=== PATIENT | male | born 1985 | race Caucasian/White ===

== ENCOUNTER 2017-05-30 15:29 | Inpatient (IN) | payer OTHER ==
[~2017-05-30] VITALS: Ht 172.7 cm; Wt 86.4 kg
[2017-05-30] MEDS ORDERED: KETOROLAC TROMETHAMINE 30 MG/ML VIAL IV STA (15:44)
[2017-05-30] MEDS ORDERED: SODIUM CHLORIDE 0.9% 1000ML 1,000 ML IV STA ×2 (15:44→19:03)
[2017-05-30] MEDS ORDERED: MoRPHine SULFATE 4 MG/ML 1 ML CARP\\VIAL IV STA ×2 (15:44→17:24)
[2017-05-30 16:19] LABS: BASO % 0.2 %; BASO ABS # 0.05 K/uL (0-0.2); COMPLETE YES; EOS % 1.7 %; HEMATOCRIT 47.7 % (42-52); IG% 0.4 %; LYMPH % 11.4 %; LYMPH ABS # 2.38 K/uL (1.2-3.4); MEAN CELL VOLUME 92.8 fL (80-100); MEAN CORPUSCULAR HEMOGLOBIN 31.7 pg (25-34); MEAN CORPUSCULAR HGB CONC 34.2 g/dl (32-36); MEAN PLATELET VOLUME 10.6 fL (7.4-10.4); NEUT % 80.3 %; PLATELET COUNT 219 K/uL (130-400); RED BLOOD COUNT 5.14 M/uL (4.7-6.1); WHITE BLOOD COUNT 20.93 K/uL (4.8-10.8)
[2017-05-30] MEDS ORDERED: MoRPHine SULFATE 10 MG/ML CARP/VIAL IM STA (16:19)
[2017-05-30 16:35] LABS: BUN/CREATININE RATIO 7.8 (10-20); CALCIUM 9.5 mg/dl (8.5-10.1)
[2017-05-30 16:39] LABS: POTASSIUM 3.8 mmol/L (3.5-5.1)
--- NOTE | 2017-05-30 16:52 | DIAGNOSTIC IMAGING REPORT ---
ABD/PELVIS WITHOUT FOR STONE HISTORY: 31 years-old Male Left flank pain acute left-sided flank pain. Initial exam COMPARISON: None available TECHNIQUE: Multiple axial CT images of the abdomen and pelvis were obtained without contrast. A dose lowering technique was used consistent with the principals of KIRA. FINDINGS: Lung bases are clear. No pneumoperitoneum. Imaged inferior cardiac chambers are unremarkable. The liver, spleen, pancreas and adrenal glands are within normal limits. There is moderate left-sided hydroureteronephrosis secondary to a 4 x 4 x 5 mm calculus of the proximal left ureter just distal to the ureteropelvic junction. Moderate associated perinephric and periureteral limits for stranding is also present. The right kidney, urinary bladder and prostate are unremarkable. The abdominal aorta is normal in course and caliber. No bulky adenopathy identified. No bowel obstruction or focal bowel wall thickening. The large bowel and appendix appear normal. Soft tissues are unremarkable. The bones appear intact. Small posterior disc osteophyte complex formation seen at L4-L5 and L5-S1. IMPRESSION: 1. Moderate left-sided hydroureteronephrosis secondary to a 4 x 4 x 5 mm calculus of the proximal left ureter just distal to the ureteropelvic junction. 2. Normal appendix. The above report was generated using voice recognition software. It may contain grammatical, syntax or spelling errors. Electronically signed by: Samir Oliver M.D. 05/30/2017 4:51 PM Dictated Date/Time: 05/30/2017 4:47 PM
[2017-05-30 17:01] LABS: URINE APPEARANCE CLEAR (CLEAR); URINE BILIRUBIN NEG (NEG); URINE COLOR YELLOW; URINE NITRITE NEG (NEG); URINE SPECIFIC GRAVITY 1.026 (1.000-1.030); UROBILINOGEN NEG (NEG); ZZUR CULT IF INDIC CLEAN CATCH NO
[2017-05-30 17:03] LABS: MANUAL MICROSCOPIC REQUIRED? NO; REVIEW REQ? NO
--- NOTE | 2017-05-30 17:14 | EMERGENCY ROOM VISIT NOTE ---
History First contact with patient: 15:40 Chief Complaint: FLANK PAIN Stated Complaint: EXTREME LOWER LEFT QUAD PAIN History of Present Illness The patient is a 31 year old male who presents to the Emergency Room via private vehicle accompanied by female with complaints of "extreme left lower quadrant pain". The patient states he has a history of renal calculi, and notes that today he woke up around 1330 with severe left lower quadrant abdominal pain radiating to his left flank. He notes this feels like previous renal calculi. He states that it feels as though he is being stabbed in this region. He does feel chills. He denies any fevers. Review of Systems A complete 10-point Review of Systems was discussed with the patient, with pertinent positives and negatives listed in the History of Present Illness. All remaining Review of Systems questions can be considered negative unless otherwise specified. Past Medical/Surgical History Medical Problems: (1) Hypertension (2) Kidney stones (3) Lumbar back pain (4) Viral syndrome Surgical Problems: (1) History of photorefractive keratectomy (PRK) Social History Problems: (1) Anxiety (2) PTSD (post-traumatic stress disorder) Family History Patient reports no known family medical history. Social History Smoking Status: Current Every Day Smoker Alcohol Use: none Drug Use: marijuana Marital Status: single Occupation Status: unemployed Current/Historical Medications No Active Prescriptions or Reported Meds Physical Exam Vital Signs Date Time Temp Pulse Resp B/P (MAP) Pulse Ox O2 Delivery O2 Flow Rate FiO2 05/30/17 18:38 73 132/94 97 Room Air 05/30/17 17:25 67 159/95 97 Room Air 05/30/17 16:05 89 148/102 98 Room Air 05/30/17 15:36 36.9 90 20 147/104 99 Room Air Physical Exam VITAL SIGNS - Vital signs and nursing notes were reviewed. Stable. Hypertensive. GENERAL -31-year-old male appearing his stated age who is in no acute distress. Communicates well with provider and answers questions appropriately. SKIN - Without rashes. No petechial rashes. HEAD - NC/AT. EYES - Sclera anicteric. EARS - No deformities of external structures noted on gross examination bilaterally. NOSE - Midline and without cyanosis. No epistaxis or purulent drainage noted. MOUTH/OROPHARYNX - Without perioral cyanosis. LUNGS - Chest wall symmetric without accessory muscle use, intercostals retractions, or central cyanosis. Normal vesicular breath sounds CTA B/L. No wheezes, rales, or rhonchi appreciated. CARDIAC - RRR with S1/S2. No murmur, rubs, or gallops appreciated. ABDOMEN - Abdominal contour normal without pulsations or visible masses. BS normoactive all four quadrants. Minimal left lower quadrant tenderness. No palpable masses, hepatosplenomegaly, or ascites noted. Positive left CVA tenderness. EXTREMITIES - No clubbing or peripheral cyanosis. No pretibial edema present. + 5/5 strength noted in UE/LE bilaterally. NEUROLOGIC - Cranial nerves II through XII grossly intact. PSYCH - Pt is very pleasant and interacts well with examiner. Medical Decision & Procedures ER Provider Diagnostic Interpretation: ABD/PELVIS WITHOUT FOR STONE HISTORY: 31 years-old Male Left flank pain acute left-sided flank pain. Initial exam COMPARISON: None available TECHNIQUE: Multiple axial CT images of the abdomen and pelvis were obtained without contrast. A dose lowering technique was used consistent with the principals of KIRA. FINDINGS: Lung bases are clear. No pneumoperitoneum. Imaged inferior cardiac chambers are unremarkable. The liver, spleen, pancreas and adrenal glands are within normal limits. There is moderate left-sided hydroureteronephrosis secondary to a 4 x 4 x 5 mm calculus of the proximal left ureter just distal to the ureteropelvic junction. Moderate associated perinephric and periureteral limits for stranding is also present. The right kidney, urinary bladder and prostate are unremarkable. The abdominal aorta is normal in course and caliber. No bulky adenopathy identified. No bowel obstruction or focal bowel wall thickening. The large bowel and appendix appear normal. Soft tissues are unremarkable. The bones appear intact. Small posterior disc osteophyte complex formation seen at L4-L5 and L5-S1. IMPRESSION: 1. Moderate left-sided hydroureteronephrosis secondary to a 4 x 4 x 5 mm calculus of the proximal left ureter just distal to the ureteropelvic junction. 2. Normal appendix. The above report was generated using voice recognition software. It may contain grammatical, syntax or spelling errors. Electronically signed by: Samir Oliver M.D. 05/30/2017 4:51 PM Dictated Date/Time: 05/30/2017 4:47 PM Laboratory Results 05/30/17 16:00 Red Blood Count 5.14, Mean Corpuscular Volume 92.8, Mean Corpuscular Hemoglobin 31.7, Mean Corpuscular Hemoglobin Concent 34.2, Mean Platelet Volume 10.6, Neutrophils (%) (Auto) 80.3, Lymphocytes (%) (Auto) 11.4, Monocytes (%) (Auto) 6.0, Eosinophils (%) (Auto) 1.7, Basophils (%) (Auto) 0.2, Neutrophils # (Auto) 16.80, Lymphocytes # (Auto) 2.38, Monocytes # (Auto) 1.25, Eosinophils # (Auto) 0.36, Basophils # (Auto) 0.05 05/30/17 16:00 Test 05/30/17 16:00 05/30/17 16:30 05/30/17 18:11 White Blood Count 20.93 K/uL (4.8-10.8) Red Blood Count 5.14 M/uL (4.7-6.1) Hemoglobin 16.3 g/dL (14.0-18.0) Hematocrit 47.7 % (42-52) Mean Corpuscular Volume 92.8 fL (80-100) Mean Corpuscular Hemoglobin 31.7 pg (25-34) Mean Corpuscular Hemoglobin Concent 34.2 g/dl (32-36) Platelet Count 219 K/uL (130-400) Mean Platelet Volume 10.6 fL (7.4-10.4) Neutrophils (%) (Auto) 80.3 % Lymphocytes (%) (Auto) 11.4 % Monocytes (%) (Auto) 6.0 % Eosinophils (%) (Auto) 1.7 % Basophils (%) (Auto) 0.2 % Neutrophils # (Auto) 16.80 K/uL (1.4-6.5) Lymphocytes # (Auto) 2.38 K/uL (1.2-3.4) Monocytes # (Auto) 1.25 K/uL (0.11-0.59) Eosinophils # (Auto) 0.36 K/uL (0-0.5) Basophils # (Auto) 0.05 K/uL (0-0.2) RDW Standard Deviation 45.9 fL (36.4-46.3) RDW Coefficient of Variation 13.5 % (11.5-14.5) Immature Granulocyte % (Auto) 0.4 % Immature Granulocyte # (Auto) 0.09 K/uL (0.00-0.02) Anion Gap 6.0 mmol/L (3-11) Est Creatinine Clear Calc Drug Dose 113.4 ml/min Estimated GFR () 114.9 Estimated GFR (Non- 99.1 BUN/Creatinine Ratio 7.8 (10-20) Calcium Level 9.5 mg/dl (8.5-10.1) Total Creatine Kinase 65 U/L (39-308) Creatine Kinase MB 1.7 ng/ml (0.5-3.6) Creatine Kinase MB Ratio 2.6 (0-3.0) Urine Color YELLOW Urine Appearance CLEAR (CLEAR) Urine pH 6.0 (4.5-7.5) Urine Specific [place] 1.026 (1.000-1.030) Urine Protein 1+ (NEG) Urine Glucose (UA) NEG (NEG) Urine Ketones TRACE (NEG) Urine Occult Blood 3+ (NEG) Urine Nitrite NEG (NEG) Urine Bilirubin NEG (NEG) Urine Urobilinogen NEG (NEG) Urine Leukocyte Esterase NEG (NEG) Urine WBC (Auto) 1-5 /hpf (0-5) Urine RBC (Auto) >30 /hpf (0-4) Urine Hyaline Casts (Auto) 1-5 /lpf (0-5) Urine Epithelial Cells (Auto) 10-20 /lpf (0-5) Urine Bacteria (Auto) NEG (NEG) Lactic Acid Level 2.2 mmol/L (0.4-2.0) Medications Administered Medications (Trade) Dose Ordered Sig/Esthela Route Start Time Stop Time Status Last Admin Dose Admin Morphine Sulfate (MoRPHine SULFATE INJ) 4 mg NOW STAT IV 05/30/17 15:44 05/30/17 16:21 DC 05/30/17 16:04 4 MG Sodium Chloride 1,000 ml @ 999 mls/hr Q1H1M STAT IV 05/30/17 15:44 05/30/17 16:44 DC 05/30/17 16:05 999 MLS/HR Morphine Sulfate (MoRPHine SULFATE INJ) 10 mg NOW STAT IM 05/30/17 16:19 05/30/17 16:21 DC 05/30/17 16:33 10 MG Morphine Sulfate (MoRPHine SULFATE INJ) 4 mg NOW STAT IV 05/30/17 17:24 05/30/17 17:26 DC 05/30/17 18:36 4 MG Medical Decision Patient was seen and evaluated as above. He presents to us today with left flank pain. This is concerning for renal calculi secondary to his presentation. There are no urinary symptoms. He is well on exam but does appear to be in a good deal of pain. There is a leukocytosis of 20.93. No anemia. Lactic acidosis of 2.2. No evidence of kidney failure. Urine reveals blood, but no evidence of infection. CT reveals left ureteral calculi. He was given morphine for his pain. He was also given normal saline. I will add 1g of Rocephin IV secondary to lactic acidosis, white blood cell count elevation and stone. He was offered inpatient admission versus outpatient management, and the decision was made that he would do best with inpatient management. I did consult the admission team regarding management in the inpatient setting, and they agreed to evaluate the patient. Case was also discussed with the attending physician. Please refer to further documentation regarding his stay. In evaluation treatment this patient following differential diagnoses were entertained: Pyelonephritis, renal calculi, infected renal calculi, ureteral calculi, among others. Impression Primary Impression: Left flank pain Additional Impressions: Ureteral calculi Increased lactic acid level Departure Information Dispostion Admitted as an inpatient Condition FAIR Prescriptions No Active Prescriptions or Reported Meds Referrals No Doctor, Assigned (PCP) Patient Instructions [facility] Problem Qualifiers
[2017-05-30 18:01] LABS: CKMB/CK RATIO 2.6 (0-3.0)
[2017-05-30] MEDS ORDERED: CEFTRIAXONE SOD INJ 1 GM ADDVIAL IV STA (19:00)
[2017-05-30] MEDS ORDERED: MoRPHine SULFATE 4 MG/ML 1 ML CARP\\VIAL IV PRN (20:00)
[2017-05-30] MEDS ORDERED: ACETAMINOPHEN 325 MG TAB PO PRN (20:00)
[2017-05-30] MEDS ORDERED: ONDANSETRON INJ 2 MG/ML 2 ML VIAL IV PRN (20:00)
[2017-05-30] MEDS ORDERED: POLYETHYLENE (MIRALAX) 17 GM PACK PO PRN (20:00)
--- NOTE | 2017-05-30 20:06 | History and Physical ---
History & Physical Date & Time of Service: May 30, 2017 at 19:57 Chief Complaint: Extreme Lower Left Quad Pain [facility] of Present Illness Source: patient, hospital records 31 yo M with a h/o nephrolithiasis with last stone two years ago presents with acute L flank pain and chills that began today. He denies fever or blood in urine. He denies any UTI symptoms such as urgency, incomplete voiding or dysuria. He has +CVA tenderness that is pronounced on the L side and some LLQ abdominal pain on exam. He is a smoker but otherwise denies any other medical problems. He denies any surgeries or need for lithotripsy or procedures for stones in the past. He was receiving medical care through the [facility] locally for a while but stopped going and at this time has no PCP. He otherwise denies any headaches, chest pain, shortness of breath, diarrhea, GI bleeding, skin changes. He admits to some nausea related to the pain and vomited twice. He has some chronic back pain for which he was taking PRN gabapentin. Past Medical/Surgical History Medical Problems: (2) Kidney stones Status: Chronic (3) Lumbar back pain Status: Chronic Surgical Problems: (1) History of photorefractive keratectomy (PRK) Status: Resolved Family History FH: lung cancer MOTHER Social History Smoking Status: Current Every Day Smoker (1 ppd x 20 years) Smokeless Tobacco Use: Unknown Alcohol Use: none Drug Use: marijuana (denies use of other illicit drugs) Marital Status: single Housing status: lives alone Occupational Status: unemployed Immunizations History of Influenza Vaccine: Unknown History of Tetanus Vaccine?: Unknown History of Pneumococcal: Unknown History of Hepatitis B Vaccine: Unknown Multi-Drug Resistant Organisms History of MDRO: No Allergies Coded Allergies: Bacitracin (Verified Allergy, Unknown, HIVES, 05/30/17) Neomycin (Verified Allergy, Unknown, HIVES, 05/30/17) Polymyxin B (Verified Allergy, Unknown, HIVES, 05/30/17) Home Medications No Active Prescriptions or Reported Meds Review of Systems At least ten systems were reviewed and negative except as indicated in HPI. Physical Exam Vital Signs Date Time Temp Pulse Resp B/P (MAP) Pulse Ox O2 Delivery O2 Flow Rate FiO2 05/30/17 19:28 85 164/90 98 Room Air 05/30/17 18:38 73 132/94 97 Room Air 05/30/17 17:25 67 159/95 97 Room Air 05/30/17 16:05 89 148/102 98 Room Air 05/30/17 15:36 36.9 90 20 147/104 99 Room Air General Appearance: WD/WN, no apparent distress Head: normocephalic, atraumatic Eyes: normal inspection, PERRL, sclerae normal ENT: hearing grossly normal, pharynx normal Neck: trachea midline Respiratory/Chest: lungs clear, normal breath sounds, no respiratory distress, no accessory muscle use Cardiovascular: regular rate, rhythm, no edema, no gallop, no JVD, no murmur, normal peripheral pulses Abdomen/GI: normal bowel sounds, soft, no organomegaly, + tenderness (LLQ) Back: normal inspection, + left CVA tenderness Extremities/Musculoskelatal: normal inspection Neurologic/Psych: community recreation programmer II-XII nml as tested, no motor/sensory deficits, alert, normal mood/affect, oriented x 3 Skin: normal color, warm/dry, no rash Diagnostics Laboratory Results 05/30/17 16:00 Red Blood Count 5.14, Mean Corpuscular Volume 92.8, Mean Corpuscular Hemoglobin 31.7, Mean Corpuscular Hemoglobin Concent 34.2, Mean Platelet Volume 10.6, Neutrophils (%) (Auto) 80.3, Lymphocytes (%) (Auto) 11.4, Monocytes (%) (Auto) 6.0, Eosinophils (%) (Auto) 1.7, Basophils (%) (Auto) 0.2, Neutrophils # (Auto) 16.80, Lymphocytes # (Auto) 2.38, Monocytes # (Auto) 1.25, Eosinophils # (Auto) 0.36, Basophils # (Auto) 0.05 05/30/17 16:00 Test 05/30/17 16:00 05/30/17 16:30 05/30/17 18:11 White Blood Count 20.93 K/uL (4.8-10.8) Red Blood Count 5.14 M/uL (4.7-6.1) Hemoglobin 16.3 g/dL (14.0-18.0) Hematocrit 47.7 % (42-52) Mean Corpuscular Volume 92.8 fL (80-100) Mean Corpuscular Hemoglobin 31.7 pg (25-34) Mean Corpuscular Hemoglobin Concent 34.2 g/dl (32-36) Platelet Count 219 K/uL (130-400) Mean Platelet Volume 10.6 fL (7.4-10.4) Neutrophils (%) (Auto) 80.3 % Lymphocytes (%) (Auto) 11.4 % Monocytes (%) (Auto) 6.0 % Eosinophils (%) (Auto) 1.7 % Basophils (%) (Auto) 0.2 % Neutrophils # (Auto) 16.80 K/uL (1.4-6.5) Lymphocytes # (Auto) 2.38 K/uL (1.2-3.4) Monocytes # (Auto) 1.25 K/uL (0.11-0.59) Eosinophils # (Auto) 0.36 K/uL (0-0.5) Basophils # (Auto) 0.05 K/uL (0-0.2) RDW Standard Deviation 45.9 fL (36.4-46.3) RDW Coefficient of Variation 13.5 % (11.5-14.5) Immature Granulocyte % (Auto) 0.4 % Immature Granulocyte # (Auto) 0.09 K/uL (0.00-0.02) Anion Gap 6.0 mmol/L (3-11) Est Creatinine Clear Calc Drug Dose 113.4 ml/min Estimated GFR () 114.9 Estimated GFR (Non- 99.1 BUN/Creatinine Ratio 7.8 (10-20) Calcium Level 9.5 mg/dl (8.5-10.1) Total Creatine Kinase 65 U/L (39-308) Creatine Kinase MB 1.7 ng/ml (0.5-3.6) Creatine Kinase MB Ratio 2.6 (0-3.0) Urine Color YELLOW Urine Appearance CLEAR (CLEAR) Urine pH 6.0 (4.5-7.5) Urine Specific [place] 1.026 (1.000-1.030) Urine Protein 1+ (NEG) Urine Glucose (UA) NEG (NEG) Urine Ketones TRACE (NEG) Urine Occult Blood 3+ (NEG) Urine Nitrite NEG (NEG) Urine Bilirubin NEG (NEG) Urine Urobilinogen NEG (NEG) Urine Leukocyte Esterase NEG (NEG) Urine WBC (Auto) 1-5 /hpf (0-5) Urine RBC (Auto) >30 /hpf (0-4) Urine Hyaline Casts (Auto) 1-5 /lpf (0-5) Urine Epithelial Cells (Auto) 10-20 /lpf (0-5) Urine Bacteria (Auto) NEG (NEG) Lactic Acid Level 2.2 mmol/L (0.4-2.0) Date/Time Source Procedure Growth Status 05/30/17 18:11 Blood Blood Culture Pending Received Results Past 24 Hours Test 05/30/17 16:00 05/30/17 16:30 05/30/17 18:11 Range/Units White Blood Count 20.93 4.8-10.8 K/uL Red Blood Count 5.14 4.7-6.1 M/uL Hemoglobin 16.3 14.0-18.0 g/dL Hematocrit 47.7 42-52 % Mean Corpuscular Volume 92.8 80-100 fL Mean Corpuscular Hemoglobin 31.7 25-34 pg Mean Corpuscular Hemoglobin Concent 34.2 32-36 g/dl Platelet Count 219 130-400 K/uL Mean Platelet Volume 10.6 7.4-10.4 fL Neutrophils (%) (Auto) 80.3 % Lymphocytes (%) (Auto) 11.4 % Monocytes (%) (Auto) 6.0 % Eosinophils (%) (Auto) 1.7 % Basophils (%) (Auto) 0.2 % Neutrophils # (Auto) 16.80 1.4-6.5 K/uL Lymphocytes # (Auto) 2.38 1.2-3.4 K/uL Monocytes # (Auto) 1.25 0.11-0.59 K/uL Eosinophils # (Auto) 0.36 0-0.5 K/uL Basophils # (Auto) 0.05 0-0.2 K/uL RDW Standard Deviation 45.9 36.4-46.3 fL RDW Coefficient of Variation 13.5 11.5-14.5 % Immature Granulocyte % (Auto) 0.4 % Immature Granulocyte # (Auto) 0.09 0.00-0.02 K/uL Sodium Level 140 136-145 mmol/L Potassium Level 3.8 3.5-5.1 mmol/L Chloride Level 108 98-107 mmol/L Carbon Dioxide Level 26 21-32 mmol/L Anion Gap 6.0 3-11 mmol/L Blood Urea Nitrogen 8 7-18 mg/dl Creatinine 1.00 0.60-1.40 mg/dl Est Creatinine Clear Calc Drug Dose 113.4 ml/min Estimated GFR () 114.9 Estimated GFR (Non- 99.1 BUN/Creatinine Ratio 7.8 10-20 Random Glucose 99 70-99 mg/dl Calcium Level 9.5 8.5-10.1 mg/dl Total Creatine Kinase 65 39-308 U/L Creatine Kinase MB 1.7 0.5-3.6 ng/ml Creatine Kinase MB Ratio 2.6 0-3.0 Urine Color YELLOW Urine Appearance CLEAR CLEAR Urine pH 6.0 4.5-7.5 Urine Specific [place] 1.026 1.000-1.030 Urine Protein 1+ NEG Urine Glucose (UA) NEG NEG Urine Ketones TRACE NEG Urine Occult Blood 3+ NEG Urine Nitrite NEG NEG Urine Bilirubin NEG NEG Urine Urobilinogen NEG NEG Urine Leukocyte Esterase NEG NEG Urine WBC (Auto) 1-5 0-5 /hpf Urine RBC (Auto) >30 0-4 /hpf Urine Hyaline Casts (Auto) 1-5 0-5 /lpf Urine Epithelial Cells (Auto) 10-20 0-5 /lpf Urine Bacteria (Auto) NEG NEG Lactic Acid Level 2.2 0.4-2.0 mmol/L Microbiology Results 05/30/17 Blood Culture, Received Pending 05/30/17 Blood Culture, Received Pending Diagnostic Radiology ABD/PELVIS WITHOUT FOR STONE HISTORY: 31 years-old Male Left flank pain acute left-sided flank pain. Initial exam COMPARISON: None available TECHNIQUE: Multiple axial CT images of the abdomen and pelvis were obtained without contrast. A dose lowering technique was used consistent with the principals of KIRA. FINDINGS: Lung bases are clear. No pneumoperitoneum. Imaged inferior cardiac chambers are unremarkable. The liver, spleen, pancreas and adrenal glands are within normal limits. There is moderate left-sided hydroureteronephrosis secondary to a 4 x 4 x 5 mm calculus of the proximal left ureter just distal to the ureteropelvic junction. Moderate associated perinephric and periureteral limits for stranding is also present. The right kidney, urinary bladder and prostate are unremarkable. The abdominal aorta is normal in course and caliber. No bulky adenopathy identified. No bowel obstruction or focal bowel wall thickening. The large bowel and appendix appear normal. Soft tissues are unremarkable. The bones appear intact. Small posterior disc osteophyte complex formation seen at L4-L5 and L5-S1. IMPRESSION: 1. Moderate left-sided hydroureteronephrosis secondary to a 4 x 4 x 5 mm calculus of the proximal left ureter just distal to the ureteropelvic junction. 2. Normal appendix. Impression Assessment and Plan 31 yo M presents with acute L flank pain and chills found to have kidney stone 1. L flank pain 2/2 ureteral calculus in setting of possible pyelonephritis. IVF overnight, Flomax started, cont supportive care with morphine, Toradol and Zofran PRN. Cont with Rocephin until Urine culture returns--in setting of chills and leukocytosis there is some concern for infection, however, notably no bacteria were seen on the initial UA. Consider Urology consult in 1-2 days if clinically worsens or not improving. 2. Tobacco use-declines nicotine replacement therapy. Pt educated about the benefits of quitting smoking. 3. Chronic Lower back pain-stable, doesn't take medications for this but was taking gabapentin PRN in the past. Cont outpatient management of this. 4. Depression-denies ever being on meds and denies this as an issue for him- was noted in some prior notes. Pt is an [employer] -denies any issues with PTSD DVT proph-SCDs Full Code Dispo-Med/Surg. Pt will need assistance establishing care with a PCP Laine Toney DO [facility] Hospitalist Level of Care Med/Surg Resuscitation Status FULL RESUSCITATION VTE Prophylaxis VTE Risk Assessment Done? Y/N: Yes Risk Level: Moderate Given or contraindicated: SCD's
[2017-05-30 21:20] VITALS: BP 152/93; PULSE 65; TEMP 36.6; O2SAT 99; Ht 172.7 cm; Wt 86.4 kg
[2017-05-30] MEDS: SODIUM CHLORIDE 0.9% 1000ML 1,000 ML IV SCH ×2 (21:44→23:23)
[2017-05-30 22:07] LABS: URINE APPEARANCE CLEAR (CLEAR); URINE BILIRUBIN NEG (NEG); URINE COLOR YELLOW; URINE NITRITE NEG (NEG); URINE SPECIFIC GRAVITY 1.015 (1.000-1.030); UROBILINOGEN NEG (NEG)
[2017-05-30 22:16] LABS: MANUAL MICROSCOPIC REQUIRED? NO; REVIEW REQ? NO
[2017-05-30] MEDS: TAMSULOSIN HCL 0.4 MG CAP PO SCH (22:26)
[2017-05-30] MEDS ORDERED: IV FLUIDS COMPLETED PRN (22:30)
[2017-05-30 23:02] VITALS: BP 134/77; PULSE 79; TEMP 37; O2SAT 98
[2017-05-30] MEDS: KETOROLAC TROMETHAMINE 30 MG/ML VIAL IV. SCH (23:24)
[2017-05-31] MEDS ORDERED: ZOLPIDEM TARTRATE 5 MG TAB PO STA (02:50)
[2017-05-31] MEDS: KETOROLAC TROMETHAMINE 30 MG/ML VIAL IV. SCH (06:24)
[2017-05-31 06:37] LABS: BASO % 0.2 %; BASO ABS # 0.03 K/uL (0-0.2); COMPLETE YES; EOS % 1.9 %; HEMATOCRIT 41.2 % (42-52); IG% 0.4 %; LYMPH % 27.3 %; LYMPH ABS # 3.61 K/uL (1.2-3.4); MEAN CELL VOLUME 92.4 fL (80-100); MEAN CORPUSCULAR HEMOGLOBIN 32.1 pg (25-34); MEAN CORPUSCULAR HGB CONC 34.7 g/dl (32-36); MEAN PLATELET VOLUME 10.7 fL (7.4-10.4); MONO % 8.4 %; NEUT % 61.8 %; PLATELET COUNT 175 K/uL (130-400); RED BLOOD COUNT 4.46 M/uL (4.7-6.1); WHITE BLOOD COUNT 13.24 K/uL (4.8-10.8)
[2017-05-31 07:16] LABS: BUN/CREATININE RATIO 6.5 (10-20); CALCIUM 8.1 mg/dl (8.5-10.1); CREATININE 0.66 mg/dl (0.60-1.40); POTASSIUM 3.7 mmol/L (3.5-5.1)
[2017-05-31 07:30] VITALS: BP 135/71; PULSE 66; TEMP 36.7; O2SAT 97
[2017-05-31] MEDS: TAMSULOSIN HCL 0.4 MG CAP PO SCH (08:02)
[2017-05-31] MEDS ORDERED: FLM4 PO (11:46)
[2017-05-31] MEDS ORDERED: CEFU1TAB33 PO (11:46)
--- NOTE | 2017-05-31 12:03 | Discharge Instructions ---
Discharge Instructions Date of Service May 31, 2017. Admission Reason for Admission: Ureteral Calculus, Left Discharge Discharge Diagnosis / Problem: LEFT URETER STONE, WITH POSSIBLE KIDNEY INFECTION Discharge Goals Goal(s): Diagnostic testing, Therapeutic intervention Activity Recommendations Activity Limitations: as noted below (NO HEAVY EXERTION UNTIL FOLLOW UP WITH PRIMARY CARE PHYSICIAN) . Instructions / Follow-Up Instructions / Follow-Up PLEASE REVIEW YOUR NEW MEDICATION LIST AND FOLLOW INSTRUCTIONS CAREFULLY. INCREASE ORAL FLUID INTAKE. CALL PRIMARY CARE PHYSICIAN, UROLOGIST OR RETURN TO THE ER IMMEDIATELY IF WITH WORSENING OF SYMPTOMS, INCREASING PAIN, FEVER/CHILLS, NAUSEA/VOMITING, CHANGES WITH URINATION, BLOOD IN THE URINE,WEAKNESS. FOLLOW UP WITH PRIMARY CARE PHYSICIAN IN 3-5 DAYS. FOLLOW UP WITH [facility] UROLOGIST DR. SEVEN ROSADO EARLY NEXT WEEK. PLEASE CALL HER OFFICE FOR AN APPOINTMENT. TEL. NO. Current Hospital Diet Patient's current hospital diet: Regular Diet Discharge Diet Recommended Diet: Regular Diet Procedures Procedures Performed: CT ABDOMEN AND PELVIS Pending Studies Studies pending at discharge: yes List of pending studies: PLEASE FOLLOW UP WITH PRIMARY CARE PHYSICIAN AND UROLOGIST FOR FURTHER EVALUATION. Medical Emergencies . Who to Call and When: Medical Emergencies: If at any time you feel your situation is an emergency, please call 911 immediately. . Non-Emergent Contact Non-Emergency issues call your: Primary Care Provider, Urologist Call Non-Emergent contact if: you have a fever, your pain is not controlled, your pain is worsening, you have any medication questions . . "Provider Documentation" section prepared by Manpreet Novoa. . VTE Core Measure Inpt VTE Proph given/why not?: SCD's
[2017-05-31] MEDS ORDERED: CEFTRIAXONE SOD INJ 1 GM in DEXTROSE 5% ADD-VANTAGE 50ML 50 ML IV SCH (19:00)
--- NOTE | 2017-06-02 21:02 | Progress Note ---
Medicine Progress Note Date & Time of Visit: Jun 02, 2017 at 20:49. delayed entry date of service 05/31/17 Subjective called by RN as patient expressing wish to leave patient seen and examined, comfortable, sitting in bed states he feels much better overall denies pain, fever/chills, problems urinating denies other symptoms states he feels back to baseline, and would like to be discharged when asked why, patient explained he cannot stand being in the hospital, he is hungry and he is getting anxious explained the medical condition in detail, richard a diagram, offered steps to make him more comfortable states he really cannot stay anymore and would like to ff up as outpatient patient explained risks and benefits of leaving AMA, he is understanding and accepting of risks Objective Physical Exam: General- oriented x 3, not in distress Eyes- EOMI, anicteric Neck- supple, no JVD Lungs- clear to auscultation b/l Heart- regular rhythm; no murmur, normal rate Abdomen- normal bowel sounds, soft, nontender Extremities- no pretibial edema, no calf tenderness; peripheral pulses intact Neuro- alert, oriented x 3; no gross focal deficits Skin- warm & dry Assessment & Plan 31 yo M presents with acute L flank pain and chills found to have kidney stone 1. L flank pain 2/2 ureteral calculus in setting of possible pyelonephritis. -- patient presents with left flank pain with chills, leukocytosis -- urine culture pending IV Ceftriaxone given -- Dr. Mondragon consulted, plan for Cystoscopy in the afternoon patient decided to leave AMA -- given prescription for Doxycycline PO and Flomax, and advised to ff up with Dr. Mondragon closely, return to ER if with worsening of symptoms 2. Tobacco use-declines nicotine replacement therapy. 3. Chronic Lower back pain-stable, continue Gabapentin 4. Depression- mood stable DVT proph-SCDs Full Code Dispo- d/c home ff up with PCP in 3-5 days ff up with Dr. Mondragon
--- NOTE | 2017-06-02 21:04 | Discharge Summary ---
Discharge Summary Date of Service Jun 02, 2017. Discharge Summary Admission Date: May 31, 2017 at 09:58 Discharge Date: May 31, 2017 Principal Diagnosis: L flank pain 2/2 ureteral calculus in setting of possible pyelonephritis. Secondary Diagnoses/Problems: Please refer to hospital course below. Procedures: ABD/PELVIS WITHOUT FOR STONE HISTORY: 31 years-old Male Left flank pain acute left-sided flank pain. Initial exam COMPARISON: None available TECHNIQUE: Multiple axial CT images of the abdomen and pelvis were obtained without contrast. A dose lowering technique was used consistent with the principals of KIRA. FINDINGS: Lung bases are clear. No pneumoperitoneum. Imaged inferior cardiac chambers are unremarkable. The liver, spleen, pancreas and adrenal glands are within normal limits. There is moderate left-sided hydroureteronephrosis secondary to a 4 x 4 x 5 mm calculus of the proximal left ureter just distal to the ureteropelvic junction. Moderate associated perinephric and periureteral limits for stranding is also present. The right kidney, urinary bladder and prostate are unremarkable. The abdominal aorta is normal in course and caliber. No bulky adenopathy identified. No bowel obstruction or focal bowel wall thickening. The large bowel and appendix appear normal. Soft tissues are unremarkable. The bones appear intact. Small posterior disc osteophyte complex formation seen at L4-L5 and L5-S1. IMPRESSION: 1. Moderate left-sided hydroureteronephrosis secondary to a 4 x 4 x 5 mm calculus of the proximal left ureter just distal to the ureteropelvic junction. 2. Normal appendix. Consultations: Urologist Dr. Rosado Pending Studies/Follow-Up: Please refer to hospital course below. Medication Reconciliation New Medications: Cefuroxime Axetil (Cefuroxime Axetil) 250 Mg Tab 1 TAB PO BID for 10 Days, #20 TABS 0 Refills Tamsulosin HCl (Tamsulosin HCl) 0.4 Mg Cap 0.4 MG PO QAM for 15 Days, #15 CAP 0 Refills Admission Information HPI (per Admitting provider): 31 yo M with a h/o nephrolithiasis with last stone two years ago presents with acute L flank pain and chills that began today. He denies fever or blood in urine. He denies any UTI symptoms such as urgency, incomplete voiding or dysuria. He has +CVA tenderness that is pronounced on the L side and some LLQ abdominal pain on exam. He is a smoker but otherwise denies any other medical problems. He denies any surgeries or need for lithotripsy or procedures for stones in the past. [facility] but stopped [facility] and at this time has no PCP. He otherwise denies any headaches, chest pain, shortness of breath, diarrhea, GI bleeding, skin changes. He admits to some nausea related to the pain and vomited twice. He has some chronic back pain for which he was taking PRN gabapentin. Physical Exam (per Admitting): General Appearance: WD/WN, no apparent distress Head: normocephalic, atraumatic Eyes: normal inspection, PERRL, sclerae normal ENT: hearing grossly normal, pharynx normal Neck: trachea midline Respiratory/Chest: lungs clear, normal breath sounds, no respiratory distress, no accessory muscle use Cardiovascular: regular rate, rhythm, no edema, no gallop, no JVD, no murmur , normal peripheral pulses Abdomen/GI: normal bowel sounds, soft, no organomegaly, + tenderness (LLQ) Back: normal inspection, + left CVA tenderness Extremities/Musculoskelatal: normal inspection 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 L flank pain 2/2 ureteral calculus in setting of possible pyelonephritis. -- patient presents with left flank pain with chills, leukocytosis -- urine culture pending IV Ceftriaxone given -- Dr. Rosado consulted, plan for Cystoscopy in the afternoon patient decided to leave A -- given prescription for Cefuroxime PO and Flomax, and advised to ff up with Dr. Rosado closely, return to ER if with worsening of symptoms 2. Tobacco use-declines nicotine replacement therapy. 3. Chronic Lower back pain-stable, continue Gabapentin 4. Depression- mood stable Dispo- d/c home ff up with PCP in 3-5 days ff up with Dr. Rosado Total time spent on discharge = 45 mins This includes examination of the patient, discharge planning, medication reconciliation, and communication with other providers. Discharge Instructions Discharge Instructions Date of Service May 31, 2017. Admission Reason for Admission: Ureteral Calculus, Left Discharge Discharge Diagnosis / Problem: LEFT URETER STONE, WITH POSSIBLE KIDNEY INFECTION Discharge Goals Goal(s): Diagnostic testing, Therapeutic intervention Activity Recommendations Activity Limitations: as noted below (NO HEAVY EXERTION UNTIL FOLLOW UP WITH PRIMARY CARE PHYSICIAN) . Instructions / Follow-Up Instructions / Follow-Up PLEASE REVIEW YOUR NEW MEDICATION LIST AND FOLLOW INSTRUCTIONS CAREFULLY. INCREASE ORAL FLUID INTAKE. CALL PRIMARY CARE PHYSICIAN, UROLOGIST OR RETURN TO THE ER IMMEDIATELY IF WITH WORSENING OF SYMPTOMS, INCREASING PAIN, FEVER/CHILLS, NAUSEA/VOMITING, CHANGES WITH URINATION, BLOOD IN THE URINE,WEAKNESS. FOLLOW UP WITH PRIMARY CARE PHYSICIAN IN 3-5 DAYS. FOLLOW UP WITH [facility] UROLOGIST DR. SEVEN ROSADO EARLY NEXT WEEK. PLEASE CALL HER OFFICE FOR AN APPOINTMENT. TEL. NO. Current Hospital Diet Patient's current hospital diet: Regular Diet Discharge Diet Recommended Diet: Regular Diet Procedures Procedures Performed: CT ABDOMEN AND PELVIS Pending Studies Studies pending at discharge: yes List of pending studies: PLEASE FOLLOW UP WITH PRIMARY CARE PHYSICIAN AND UROLOGIST FOR FURTHER EVALUATION.
== END 2017-05-31 12:10 | disposition left against medical advice (07) | DRG 694 ==
LOC: C.EDB 15:31 → C.MSW 19:56 → ENRESERV 20:54 → OBSVTOIN 05-31 09:58
PROVIDERS: ADMIT Hospitalist; ATTEND Internal Medicine
DX: N20.1 Calculus of ureter (principal); N12 Tubulo-interstitial nephritis, not specified as acute or chronic; F17.201 Nicotine dependence, unspecified, in remission; R10.32 Left lower quadrant pain; Z87.442 Personal history of urinary calculi; F12.10 Cannabis abuse, uncomplicated; Z80.1 Family history of malignant neoplasm of trachea, bronchus and lung

== ENCOUNTER 2017-06-20 20:36 | Emergency (ER) | payer OTHER ==
[~2017-06-20] VITALS: Ht 172.7 cm; Wt 87.2 kg
[~2017-06-20 20:36] MED LIST: CEFU1TAB33 PO; FLM4 PO
[2017-06-20 20:38] VITALS: TEMP 36.8; Ht 172.7 cm; Wt 87.2 kg
[2017-06-20] MEDS ORDERED: TAMSULOSIN HCL 0.4 MG CAP PO STA (21:23)
--- NOTE | 2017-06-20 21:59 | DIAGNOSTIC IMAGING REPORT ---
KUB CLINICAL HISTORY: Left flank pain COMPARISON STUDY: CT scan dated 05/30/2017 FINDINGS: There is no pathologic bowel dilatation. There is a 4 mm left pelvic basin calcification, likely representing distal migration of the previously described proximal left ureteral calculus IMPRESSION: 1. No evidence of pathologic bowel dilatation 2. 4 mm left pelvic basin calcification, likely representing distal migration of the previously described proximal left ureteral calculus Electronically signed by: Ebenezer Clark M.D. 06/20/2017 9:58 PM Dictated Date/Time: 06/20/2017 9:56 PM
--- NOTE | 2017-06-20 22:21 | DIAGNOSTIC IMAGING REPORT ---
EXAMINATION: RENAL ULTRASOUND CLINICAL HISTORY: Left flank pain COMPARISON STUDY: CT scan dated 05/30/2017 FINDINGS: The right kidney measures 11.7 cm. The left kidney measures 12.4 cm. There is no evidence of hydronephrosis. There are no renal masses. There is a suspected 4 mm calculus at the level of the left ureterovesical junction. IMPRESSION : 1. No renal masses identified 2. No hydronephrosis 3. Suspected 4 mm calculus at the level of the left ureterovesical junction Electronically signed by: Ebenezer Clark M.D. 06/20/2017 10:20 PM Dictated Date/Time: 06/20/2017 10:19 PM
[2017-06-20 23:18] VITALS: BP 145/93; PULSE 72; O2SAT 99
--- NOTE | 2017-06-21 00:11 | EMERGENCY ROOM VISIT NOTE ---
History Report prepared by Emily: Greer Parker Under the Supervision of: Dr. Sylvester Delcid M.D. First contact with patient: 21:08 Chief Complaint: KIDNEY STONE Stated Complaint: KIDNEY STONE, CAN'T PEE History of Present Illness The patient is a 31 year old male who presents to the Emergency Room with complaints of persistent difficulty urinating starting earlier this evening. The patient was seen in the ED several weeks ago and was found to have a large kidney stone. He has not passed the stone yet. He took a nap today and woke up with the urge to urinate. He went to the bathroom, but did not pass any urine. Upon arriving to the ED, he was only able to urinate a small amount. He still feels like he needs to urinate. He denies having any pain. He followed up with urology 3 days ago and was prescribed more Flomax. He has a history of kidney stones all of which he has been able to pass. Source of History: patient Onset: this evening Position: other (global) Quality: other (difficulty urinating) Timing: other (persistent) Note: Pt denies having any pain. Review of Systems See HPI for pertinent positives & negatives. A total of 10 systems reviewed and were otherwise negative. Past Medical & Surgical Medical Problems: (1) Hypertension (2) Kidney stones (3) Lumbar back pain (4) Ureteral calculus, left (5) Ureteral stone (6) Viral syndrome Surgical Problems: (1) History of photorefractive keratectomy (PRK) Social History Problems: (1) Anxiety (2) PTSD (post-traumatic stress disorder) Family History FH: lung cancer MOTHER Social History Smoking Status: Current Every Day Smoker Alcohol Use: none Drug Use: marijuana Marital Status: single Occupation Status: unemployed Current/Historical Medications No Active Prescriptions or Reported Meds Allergies Coded Allergies: Bacitracin (Verified Allergy, Unknown, HIVES, 05/30/17) Neomycin (Verified Allergy, Unknown, HIVES, 05/30/17) Polymyxin B (Verified Allergy, Unknown, HIVES, 05/30/17) Physical Exam Vital Signs Date Time Temp Pulse Resp B/P (MAP) Pulse Ox O2 Delivery O2 Flow Rate FiO2 06/20/17 23:18 72 17 145/93 99 06/20/17 20:38 36.8 80 18 143/97 97 Room Air Physical Exam GENERAL: Patient is a healthy-appearing well-nourished male HEAD: Normocephalic atraumatic EYES: Ocular movements intact pupils equal and react to light OROPHARYNX mucous membranes are moist no exudates present no erythema or edema present NECK: Supple no nuchal rigidity CHEST: Good equal expansion LUNGS: Clear and equal to auscultation CARDIAC: Normal S1 and S2 ABDOMEN: Soft nontender no guarding BACK: No CVA tenderness EXTREMITIES: No pain upon palpation normal muscle strength in all groups no clubbing cyanosis or edema NEURO: Patient is following commands and answering questions appropriately. Alert and oriented x3 Cranial Nerves 2-12 grossly intact Medical Decision & Procedures ER Provider Diagnostic Interpretation: X-ray results as stated below per interpretation by me and the radiologist. Radiology results as stated below per my review and radiologist interpretation: KUB CLINICAL HISTORY: Left flank pain COMPARISON STUDY: CT scan dated 05/30/2017 FINDINGS: There is no pathologic bowel dilatation. There is a 4 mm left pelvic basin calcification, likely representing distal migration of the previously described proximal left ureteral calculus IMPRESSION: 1. No evidence of pathologic bowel dilatation 2. 4 mm left pelvic basin calcification, likely representing distal migration of the previously described proximal left ureteral calculus Electronically signed by: Ebenezer Clark M.D. 06/20/2017 9:58 PM Dictated Date/Time: 06/20/2017 9:56 PM EXAMINATION: RENAL ULTRASOUND CLINICAL HISTORY: Left flank pain COMPARISON STUDY: CT scan dated 05/30/2017 FINDINGS: The right kidney measures 11.7 cm. The left kidney measures 12.4 cm. There is no evidence of hydronephrosis. There are no renal masses. There is a suspected 4 mm calculus at the level of the left ureterovesical junction. IMPRESSION : 1. No renal masses identified 2. No hydronephrosis 3. Suspected 4 mm calculus at the level of the left ureterovesical junction Electronically signed by: Ebenezer Clark M.D. 06/20/2017 10:20 PM Dictated Date/Time: 06/20/2017 10:19 PM Medications Administered Medications (Trade) Dose Ordered Sig/Esthela Route Start Time Stop Time Status Last Admin Dose Admin Tamsulosin HCl (Flomax Cap) 0.4 mg NOW STAT PO 06/20/17 21:23 06/20/17 21:25 DC 06/20/17 21:31 0.4 MG ED Course 2120: Past medical records reviewed. The patient was evaluated in room B3B. A complete history and physical examination was performed. 2122: Flomax Cap 0.4 mg PO. 2300: Upon reexamination the patient is resting comfortably. I discussed results and treatment plan with the patient. He verbalizes agreement and understanding. The patient is ready for discharge. Medical Decision Differential diagnosis: Etiologies such as renal colic, appendicitis, diverticulitis, mesenteric ischemia, aortic pathology, infections, inflammatory bowel disease, PUD, biliary pathology, UTI, as well as others were entertained. This is a 31-year-old male who presents emergency department complaining of urge to urinate. The patient is concerned that he has a large kidney stone and he is unable to pass it. He wishes to have a KUB as well as an ultrasound. I feel that this is reasonable so the patient was sent for them. Both KUB and ultrasound showed that the stone is just about the pass. He was given Flomax in the emergency department. The patient was pain-free at the time of discharge and I feel can be safely be discharged home. Medication Reconcilliation Current Medication List: was personally reviewed by me Blood Pressure Screening Patient's blood pressure: Elevated blood pressure Blood pressure disposition: Elevated BP felt to be situational Impression Primary Impression: Kidney stone on left side Scribe Attestation The scribe's documentation has been prepared under my direction and personally reviewed by me in its entirety. I confirm that the note above accurately reflects all work, treatment, procedures, and medical decision making performed by me. Departure Information Dispostion Home / Self-Care Prescriptions No Active Prescriptions or Reported Meds Referrals No Doctor, Assigned (PCP) Aziza Mondragon MD Forms HOME CARE DOCUMENTATION FORM, IMPORTANT VISIT INFORMATION Patient Instructions My [facility] Additional Instructions Follow up with Dr Mondragon' office You have been examined and treated today on an emergency basis only. This is not a substitute for, or an effort to provide, complete comprehensive medical care. It is impossible to recognize and treat all injuries or illnesses in a single emergency department visit. It is therefore important that you follow up closely with your PCP. Call as soon as possible for an appointment. Thank you for your time and consideration. I look forward to speaking with you again soon. Please don't hesitate to call us if you have any questions.
[2017-06-21] MEDS ORDERED: FLM4 PO (21:32)
[2017-06-22] MEDS ORDERED: NAPR550T22 PO (13:41)
[2017-06-22] MEDS ORDERED: HYDR-3419 PO (14:01)
== END 2017-06-20 23:19 | disposition home or self-care (01) ==
LOC: C.EDB 20:37
DX: N20.0 Calculus of kidney (principal); I10 Essential (primary) hypertension; Z87.442 Personal history of urinary calculi; M54.5 Low back pain; F41.9 Anxiety disorder, unspecified; F43.10 Post-traumatic stress disorder, unspecified; Z80.9 Family history of malignant neoplasm, unspecified; F17.210 Nicotine dependence, cigarettes, uncomplicated

== ENCOUNTER 2017-06-21 20:43 | Inpatient (IN) | payer OTHER ==
[~2017-06-21] VITALS: Ht 172.7 cm; Wt 88.8 kg
[2017-06-21] MEDS ORDERED: SODIUM CHLORIDE 0.9% 1000ML 1,000 ML IV STA (20:50)
[2017-06-21] MEDS ORDERED: ONDANSETRON INJ 2 MG/ML 2 ML VIAL IV STA (20:50)
[2017-06-21] MEDS ORDERED: KETOROLAC TROMETHAMINE 30 MG/ML VIAL IV STA (20:50)
[2017-06-21] MEDS ORDERED: MoRPHine SULFATE 10 MG/ML CARP/VIAL IV PRN (21:00)
--- NOTE | 2017-06-21 21:03 | EMERGENCY ROOM VISIT NOTE ---
History Report prepared by Kevynibe: Lyssa Hsieh Under the Supervision of: Dr. Med Cooper M.D. First contact with patient: 20:49 Chief Complaint: KIDNEY STONE Stated Complaint: KIDNEY STONE History of Present Illness The patient is a 31 year old male who presents to the Emergency Room with complaints of a known kidney stone which has been giving him discomfort starting 3 weeks ago. The patient was seen at the ED last night and has a 4 x 4 x 5 mm kidney stone on his left side at the entry point of his bladder. He has been having difficulty urinating, blood in the urine, left sided abdominal discomfort, but denies any vomiting. He has not been taking anything for his pain. The patient has a history fo kidney stones and sees Dr. Mondragon from Urology. He saw Dr. Mondragon 4 days ago and was put on Flomax. Source of History: patient Onset: 3 weeks ago Position: other (generalized) Quality: other (kidney stone) Associated Symptoms: + abdominal pain, + urinary symptoms, No vomiting Note: Pt notes blood in urine. Review of Systems See HPI for pertinent positives & negatives. A total of 10 systems reviewed and were otherwise negative. Past Medical & Surgical Medical Problems: (1) Hypertension (2) Kidney stones (3) Lumbar back pain (4) Ureteral calculus, left (5) Ureteral stone (6) Viral syndrome Surgical Problems: (1) History of photorefractive keratectomy (PRK) Social History Problems: (1) Anxiety (2) PTSD (post-traumatic stress disorder) Family History FH: lung cancer MOTHER Social History Smoking Status: Current Every Day Smoker Alcohol Use: none Drug Use: marijuana Marital Status: single Occupation Status: unemployed Current/Historical Medications Scheduled Tamsulosin HCl (Tamsulosin HCl), 0.4 MG PO DAILY Allergies Coded Allergies: Bacitracin (Verified Allergy, Unknown, HIVES, 06/21/17) Neomycin (Verified Allergy, Unknown, HIVES, 06/21/17) Polymyxin B (Verified Allergy, Unknown, HIVES, 06/21/17) Physical Exam Vital Signs Date Time Temp Pulse Resp B/P (MAP) Pulse Ox O2 Delivery O2 Flow Rate FiO2 06/21/17 20:46 36.7 98 18 152/91 94 Room Air Physical Exam GENERAL: Patient is in no acute distress. HEENT: No acute trauma, normocephalic atraumatic, mucous membranes moist, no nasal congestion, no scleral icterus. NECK: No stridor, no adenopathy, no meningismus, trachea is midline. LUNGS: Clear to auscultation bilaterally, no wheeze, no rhonchi, breath sounds equal. HEART: Without murmurs gallops or rubs, regular rate and rhythm. ABDOMEN: Moderate tenderness in left lower quadrant. Soft, bowel sounds positive , no hernias, no peritonitis. BACK: Left flank discomfort with percussion. EXTREMITIES: No cyanosis or edema, full range of motion of all the joints without pain or difficulty, no signs for acute trauma. NEUROLOGIC: Oriented x 3, no acute motor or sensory deficits, no focal weakness. SKIN: No rash, no jaundice, no diaphoresis. Medical Decision & Procedures ER Provider Diagnostic Interpretation: Radiology results as stated below per my review and radiologist interpretation: KUB FINDINGS: Unchanging distal left ureteral calculus. This again measures approximately 4 mm it is unchanged in position compared to the prior study. Bowel pattern is nonobstructive. IMPRESSION: Unchanged position of a distal left ureteral calculus. The above report was generated using voice recognition software. It may contain grammatical, syntax or spelling errors. Electronically signed by: Pete Jorge M.D. Laboratory Results 06/21/17 21:19 06/21/17 21:19 Test 06/21/17 21:09 06/21/17 21:19 Urine Color ORANGE Urine Appearance CLOUDY (CLEAR) Urine pH 5.5 (4.5-7.5) Urine Specific [place] 1.025 (1.000-1.030) Urine Protein 1+ (NEG) Urine Glucose (UA) NEG (NEG) Urine Ketones TRACE (NEG) Urine Occult Blood 3+ (NEG) Urine Nitrite NEG (NEG) Urine Bilirubin NEG (NEG) Urine Urobilinogen NEG (NEG) Urine Leukocyte Esterase TRACE (NEG) Urine WBC (Auto) 1-5 /hpf (0-5) Urine RBC (Auto) >30 /hpf (0-4) Urine Hyaline Casts (Auto) 0 /lpf (0-5) Urine Epithelial Cells (Auto) 0-5 /lpf (0-5) Urine Bacteria (Auto) NEG (NEG) Red Blood Count 4.80 M/uL (4.7-6.1) Mean Corpuscular Volume 93.5 fL (80-100) Mean Corpuscular Hemoglobin 33.8 pg (25-34) Mean Corpuscular Hemoglobin Concent 36.1 g/dl (32-36) RDW Standard Deviation 45.4 fL (36.4-46.3) RDW Coefficient of Variation 13.2 % (11.5-14.5) Mean Platelet Volume 10.7 fL (7.4-10.4) Anion Gap 7.0 mmol/L (3-11) Est Creatinine Clear Calc Drug Dose 114.8 ml/min Estimated GFR () 114.9 Estimated GFR (Non- 99.1 BUN/Creatinine Ratio 8.4 (10-20) Calcium Level 9.1 mg/dl (8.5-10.1) Laboratory results reviewed by me. Medications Administered Medications (Trade) Dose Ordered Sig/Esthela Route Start Time Stop Time Status Last Admin Dose Admin Ondansetron HCl (Zofran Inj) 4 mg NOW STAT IV 06/21/17 20:50 06/21/17 20:58 DC 06/21/17 21:08 4 MG Sodium Chloride 1,000 ml @ 999 mls/hr Q1H1M STAT IV 06/21/17 20:50 06/21/17 21:50 DC 06/21/17 21:07 999 MLS/HR Morphine Sulfate (MoRPHine SULFATE INJ) 6 mg Q15M PRN IV 06/21/17 21:00 07/05/17 20:59 06/21/17 21:08 6 MG Ketorolac Tromethamine (Toradol Inj) 30 mg NOW STAT IV 06/21/17 20:50 06/21/17 20:59 DC 06/21/17 21:08 30 MG ED Course 2048: The patient was evaluated in room C3. A complete history and physical exam was performed. 2049: Toradol Inj 30 mg IV, Sodium Chloride 1000 ml @ 999 mls/hr IV, Zofran Inj 4 mg IV. 2099: Morphine Sulfate 6 mg IV. 2147: I updated the patient on his test results. He is willing to be admitted. 2152: Discussed the patient's case with Dr. Munoz. The patient will be evaluated for further management. Medical Decision Differential diagnoses includes: renal failure, hydronephrosis, renal colic, UTI , dehydration, failed outpatient treatment. There is a significant leukocytosis at 20,000, this could be consistent with infection or just his pain. No anemia. No significant electrolyte abnormality or kidney failure. KUB shows a distal left ureteral stone at the junction of the bladder. The stone was in the same position as filmed yesterday. Urinalysis shows hematuria and possibly some dehydration, no signs of infection. The patient presents with ongoing issues from a left ureteral stone. This is his third visit. He has already seen urology. He is failing outpatient treatment. I do think a hospital stay is warranted. I spoke to the patient and case management. The on-call hospitalist was consulted. During the patient's ER stay, he received IV Toradol, IV Zofran and IV morphine. He was given IV saline, he seems more comfortable. Medication Reconcilliation Current Medication List: was personally reviewed by me Blood Pressure Screening Patient's blood pressure: Elevated blood pressure Blood pressure disposition: Elevated BP felt to be situational Consults Time Called: 2149 Consulting Physician: Dr. Munoz Returned Call: [phone] Discussed the patient's case. The patient will be evaluated for further management. Impression Primary Impression: Renal colic on left side Additional Impressions: Leukocytosis Failure of outpatient treatment Scribe Attestation The scribe's documentation has been prepared under my direction and personally reviewed by me in its entirety. I confirm that the note above accurately reflects all work, treatment, procedures, and medical decision making performed by me. Departure Information Dispostion Being Evaluated By Hospitalist Referrals No Doctor, Assigned (PCP) Patient Instructions My [facility] Problem Qualifiers
[2017-06-21 21:23] LABS: HEMATOCRIT 44.9 % (42-52); MEAN CELL VOLUME 93.5 fL (80-100); MEAN CORPUSCULAR HEMOGLOBIN 33.8 pg (25-34); MEAN CORPUSCULAR HGB CONC 36.1 g/dl (32-36); MEAN PLATELET VOLUME 10.7 fL (7.4-10.4); PLATELET COUNT 210 K/uL (130-400); WHITE BLOOD COUNT 20.48 K/uL (4.8-10.8)
--- NOTE | 2017-06-21 21:28 | DIAGNOSTIC IMAGING REPORT ---
KUB CLINICAL HISTORY: EVALUATE FOR OBSTRUCTION/STONE pain COMPARISON STUDY: 06/20/2017 FINDINGS: Unchanging distal left ureteral calculus. This again measures approximately 4 mm it is unchanged in position compared to the prior study. Bowel pattern is nonobstructive. IMPRESSION: Unchanged position of a distal left ureteral calculus. The above report was generated using voice recognition software. It may contain grammatical, syntax or spelling errors. Electronically signed by: Pete Jorge M.D. 06/21/2017 9:27 PM Dictated Date/Time: 06/21/2017 9:26 PM
[2017-06-21] MEDS ORDERED: FLM4 PO (21:32)
[2017-06-21 21:41] LABS: URINE APPEARANCE CLOUDY (CLEAR); URINE BILIRUBIN NEG (NEG); URINE COLOR ORANGE; URINE EPITHELIAL CELL AUTO 0-5 /lpf (0-5); URINE NITRITE NEG (NEG); URINE PH 5.5 (4.5-7.5); URINE SPECIFIC GRAVITY 1.025 (1.000-1.030); UROBILINOGEN NEG (NEG); ZZUR CULT IF INDIC CLEAN CATCH NO
[2017-06-21 21:42] LABS: MANUAL MICROSCOPIC REQUIRED? NO; REVIEW REQ? NO
[2017-06-21 21:43] LABS: BUN/CREATININE RATIO 8.4 (10-20); CALCIUM 9.1 mg/dl (8.5-10.1); POTASSIUM 3.7 mmol/L (3.5-5.1)
[2017-06-21] MEDS ORDERED: ALUMINUM/MAGNESIUM/SIMETH (MAALOX MAX) 30 ML UDC PO PRN (22:30)
[2017-06-21] MEDS ORDERED: MoRPHine SULFATE 4 MG/ML 1 ML CARP\\VIAL IV PRN (22:30)
[2017-06-21] MEDS ORDERED: MAGNESIUM HYDROXIDE SUSP 30 ML UDC PO PRN (22:30)
[2017-06-21] MEDS ORDERED: KETOROLAC TROMETHAMINE 30 MG/ML VIAL IV PRN (22:30)
[2017-06-21] MEDS ORDERED: ACETAMINOPHEN 325 MG TAB PO PRN (22:30)
[2017-06-21] MEDS ORDERED: ONDANSETRON INJ 2 MG/ML 2 ML VIAL IV PRN (22:30)
[2017-06-21 23:07] VITALS: Ht 172.7 cm; Wt 88.8 kg
[2017-06-21 23:11] VITALS: O2SAT 97
[2017-06-21 23:28] VITALS: BP 128/79; PULSE 61; TEMP 36.7
--- NOTE | 2017-06-21 23:54 | HISTORY & PHYSICAL EXAMINATION ---
DATE OF ADMISSION: 06/21/2017 CHIEF COMPLAINT: Left renal colic. HISTORY OF PRESENT ILLNESS: This is a 31-year-old male with past medical history significant for kidney stones, chronic lumbar back pain, presents with left renal colic. The patient was in the hospital in May 26 with left renal stone and after his pain got resolved he signed out AMA and followed with urology as an outpatient. He was placed on Flomax and renal stone diet was explained and he was supposed to follow with urology in couple of weeks to see if he passed the stone.But he had severe pain yesterday and he thought the stone was too big to pass and came to ER and requested for ultrasound KUB which showed 4 mm left ureterovesical junction stone and after treatment he became pain free and he was okay to discharge home. But again today at around 3-4 o'clock in the afternoon, he started to have severe abdominal pain in his left flank region radiating into the groin which he could not tolerate thus came back to the ER again. Denies any nausea, vomiting. No fever, chills. Denies any headaches, no blurred vision, no dizziness, no sore throat, no chest pain, no cough, no shortness of breath, no nausea, no vomiting. Normal bowel and bladder and he also says he had some hematuria today. Denies any blood in the stools, no black stools. Appetite is okay. No swelling in the legs. No skin rash. Currently, resting comfortable and hemodynamically stable. ALLERGIES: BATRAFEN, NEOMYCIN, AND POLYMYXIN B. PAST MEDICAL HISTORY: As mentioned above. PAST SURGICAL HISTORY: History of photorefractive keratectomy MEDICATIONS: Flomax 0.4 mg p.o. daily. FAMILY HISTORY: Significant for mother had lung cancer. SOCIAL HISTORY: Smokes 1 pack a day for last 20 years. No alcohol use. Smokes marijuana. Single REVIEW OF SYMPTOMS: As per HPI. Rest of review of systems negative. PHYSICAL EXAMINATION: GENERAL: The patient is of moderate build, not in distress. VITAL SIGNS: Temperature 36.7, pulse 70, respiratory rate 20, blood pressure 142/70, oxygen 97% room air. HEENT: No pallor, no icterus. Pupils equal, round, and reactive to light. NECK: No JVD, no neck masses, no carotid bruits. CARDIOVASCULAR: S1, S2 heard, regular rate and rhythm, no murmur, no gallop. RESPIRATORY SYSTEM: Clear to auscultation bilaterally. No wheezing, no crackles. ABDOMEN: Soft, bowel sounds present. Mild left CVA tenderness present, no guarding or rigidity. CENTRAL NERVOUS SYSTEM: Cranial nerves II-XII grossly intact. Nonfocal. EXTREMITIES: No edema. LABORATORY DATA: WBC 20.4, hemoglobin 16.2, hematocrit 44.9, platelets 210. Sodium 137, potassium 3.7, chloride 103, bicarbonate 27, BUN 8, creatinine 1. Serum glucose 97, calcium 9.1. Urinalysis positive for trace leukocyte esterase, occult blood present. KUB done today shows unchanged position of the distal ureteral calculus, 4 mm in size. ASSESSMENT AND PLAN: 1. Left renal colic with left ureterovesical junction 4 mm stone, failed outpatient treatment. Continue Flomax. We will place him on IV fluids. IV pain medication, IV antiemetics and urology consult for further recommendations. 2. Leukocytosis, the patient is afebrile, has mild leukocyte esterase. We will place him on Rocephin until cultures are back. 3. Deep venous thrombosis prophylaxis. SCDs and TEDs . 3. Disposition: Observation on medical floor. Expect to discharge home and follow with his family doctor. Level 1 full code. MTDD
[2017-06-22] MEDS ORDERED: CEFTRIAXONE SOD INJ 1 GM in DEXTROSE 5% ADD-VANTAGE 50ML 50 ML IV SCH ×2
[2017-06-22] MEDS ORDERED: IV FLUIDS COMPLETED PRN (00:15)
[2017-06-22] MEDS: SODIUM CHLORIDE 0.9% 1000ML 1,000 ML IV SCH ×2 (00:44→08:24)
[2017-06-22 06:37] LABS: BASO % 0.2 %; BASO ABS # 0.03 K/uL (0-0.2); COMPLETE YES; EOS % 3.8 %; HEMATOCRIT 43.2 % (42-52); IG% 0.4 %; LYMPH % 27.1 %; LYMPH ABS # 3.32 K/uL (1.2-3.4); MEAN CELL VOLUME 94.1 fL (80-100); MEAN CORPUSCULAR HEMOGLOBIN 32.2 pg (25-34); MEAN CORPUSCULAR HGB CONC 34.3 g/dl (32-36); MEAN PLATELET VOLUME 10.5 fL (7.4-10.4); MONO % 8.4 %; NEUT % 60.1 %; PLATELET COUNT 211 K/uL (130-400); RED BLOOD COUNT 4.59 M/uL (4.7-6.1); WHITE BLOOD COUNT 12.27 K/uL (4.8-10.8)
[2017-06-22 07:11] LABS: BUN/CREATININE RATIO 9.9 (10-20); CALCIUM 8.1 mg/dl (8.5-10.1); CREATININE 0.75 mg/dl (0.60-1.40); POTASSIUM 4.2 mmol/L (3.5-5.1)
[2017-06-22 07:15] VITALS: BP 123/75; PULSE 48; TEMP 36.6; O2SAT 98
[2017-06-22] MEDS ORDERED: TAMSULOSIN HCL 0.4 MG CAP PO SCH (09:00)
--- NOTE | 2017-06-22 11:38 | Urology Consultation ---
History General Date of Service: Jun 22, 2017. Chief Complaint: left ureteral stone Primary Care Physician: No Doctor, Assigned Pt seen a urologist before?: Yes If yes, why?: left ureteral stone History of Present Illness I am asked by Dr Reynolds to evaluate and treat patient for left ureteral stone. This is his second admission for this stone. At presentation May 30, 2017 the stone was in the upper ureter. Patient has been on medical expulsive therapy and the stone has progressed down the ureter and is not at the UVJ bladder wall. COnsistent with this stone location the patient his having bladder irritative symptoms. This stone seems to have been much more painful than his prior stones. Imaging Imaging: CT, KUB Laboratory Results Past 24 Hours Test 06/21/17 21:09 06/21/17 21:19 06/22/17 06:15 Range/Units Urine Color ORANGE Urine Appearance CLOUDY CLEAR Urine pH 5.5 4.5-7.5 Urine Specific [place] 1.025 1.000-1.030 Urine Protein 1+ NEG Urine Glucose (UA) NEG NEG Urine Ketones TRACE NEG Urine Occult Blood 3+ NEG Urine Nitrite NEG NEG Urine Bilirubin NEG NEG Urine Urobilinogen NEG NEG Urine Leukocyte Esterase TRACE NEG Urine WBC (Auto) 1-5 0-5 /hpf Urine RBC (Auto) >30 0-4 /hpf Urine Hyaline Casts (Auto) 0 0-5 /lpf Urine Epithelial Cells (Auto) 0-5 0-5 /lpf Urine Bacteria (Auto) NEG NEG White Blood Count 20.48 12.27 4.8-10.8 K/uL Red Blood Count 4.80 4.59 4.7-6.1 M/uL Hemoglobin 16.2 14.8 14.0-18.0 g/dL Hematocrit 44.9 43.2 42-52 % Mean Corpuscular Volume 93.5 94.1 80-100 fL Mean Corpuscular Hemoglobin 33.8 32.2 25-34 pg Mean Corpuscular Hemoglobin Concent 36.1 34.3 32-36 g/dl RDW Standard Deviation 45.4 46.3 36.4-46.3 fL RDW Coefficient of Variation 13.2 13.5 11.5-14.5 % Platelet Count 210 211 130-400 K/uL Mean Platelet Volume 10.7 10.5 7.4-10.4 fL Sodium Level 137 141 136-145 mmol/L Potassium Level 3.7 4.2 3.5-5.1 mmol/L Chloride Level 103 108 98-107 mmol/L Carbon Dioxide Level 27 24 21-32 mmol/L Anion Gap 7.0 9.0 3-11 mmol/L Blood Urea Nitrogen 8 7 7-18 mg/dl Creatinine 1.00 0.75 0.60-1.40 mg/dl Est Creatinine Clear Calc Drug Dose 114.8 153.1 ml/min Estimated GFR () 114.9 140.7 Estimated GFR (Non- 99.1 121.4 BUN/Creatinine Ratio 8.4 9.9 10-20 Random Glucose 97 85 70-99 mg/dl Calcium Level 9.1 8.1 8.5-10.1 mg/dl Neutrophils (%) (Auto) 60.1 % Lymphocytes (%) (Auto) 27.1 % Monocytes (%) (Auto) 8.4 % Eosinophils (%) (Auto) 3.8 % Basophils (%) (Auto) 0.2 % Neutrophils # (Auto) 7.37 1.4-6.5 K/uL Lymphocytes # (Auto) 3.32 1.2-3.4 K/uL Monocytes # (Auto) 1.03 0.11-0.59 K/uL Eosinophils # (Auto) 0.47 0-0.5 K/uL Basophils # (Auto) 0.03 0-0.2 K/uL Immature Granulocyte % (Auto) 0.4 % Immature Granulocyte # (Auto) 0.05 0.00-0.02 K/uL Magnesium Level 2.0 1.8-2.4 mg/dl Microbiology Results 06/22/17 Urine Culture, Received Pending Labs were reviewed and are within normal limits unless listed below. Labs are available in the chart and at [facility] Problem List Medical Problems: (1) Anxiety Status: Acute (2) Depression Status: Acute (3) Depression Status: Acute (4) Failure of outpatient treatment Status: Acute (5) Increased lactic acid level Status: Acute (6) Insomnia Status: Acute (7) Kidney stone on left side Status: Acute (8) Left flank pain Status: Acute (9) Leukocytosis Status: Acute (10) Low back pain Status: Acute (11) Renal colic on left side Status: Acute (12) Ureteral calculi Status: Acute Past History anxiety, kidney stones, other (PTSD) Family History FH: lung cancer MOTHER Social History Hx Tobacco Use In Past Year?: Yes Smokin pack/day Alcohol: socially Marital status: single Housing status: lives alone Occupation status: unemployed (getting [employer] benefits form back injury ) Immunizations History of Influenza Vaccine: Unknown History of Tetanus Vaccine?: Unknown History of Pneumococcal: Unknown History of Hepatitis B Vaccine: Unknown History of MDRO No Allergies Coded Allergies: Bacitracin (Verified Allergy, Unknown, HIVES, 06/21/17) Neomycin (Verified Allergy, Unknown, HIVES, 06/21/17) Polymyxin B (Verified Allergy, Unknown, HIVES, 06/21/17) Medications Home Medications: Home Meds and Scripts Medications Dose Route/Sig Max Daily Dose Days Date Category Tamsulosin HCl 0.4 Mg Cap 0.4 Mg PO DAILY 06/21/17 Reported Inpatient Medications: Current Inpatient Medications Medications (Trade) Dose Ordered Sig/Esthela Route Start Time Stop Time Status Last Admin Dose Admin Acetaminophen (Tylenol Tab) 650 mg Q4H PRN PO 06/21/17 22:30 07/21/17 22:29 Al Hydrox/Mg Hydrox/Simethicone (Maalox Max Susp) 15 ml Q4H PRN PO 06/21/17 22:30 07/21/17 22:29 Magnesium Hydroxide (Milk Of Magnesia Susp) 30 ml Q6H PRN PO 06/21/17 22:30 07/21/17 22:29 Ondansetron HCl (Zofran Inj) 4 mg Q6H PRN IV 06/21/17 22:30 07/21/17 22:29 Tamsulosin HCl (Flomax Cap) 0.4 mg DAILY PO 06/22/17 09:00 07/22/17 08:59 06/22/17 08:18 0.4 MG Morphine Sulfate (MoRPHine SULFATE INJ) 3 mg Q3HWA PRN IV 06/21/17 22:30 07/05/17 22:29 06/22/17 06:11 3 MG Ketorolac Tromethamine (Toradol Inj) 30 mg Q6H PRN IV 06/21/17 22:30 06/26/17 22:29 Sodium Chloride 1,000 ml @ 125 mls/hr Q8H IV 06/22/17 00:00 07/22/17 00:00 06/22/17 08:24 125 MLS/HR Ceftriaxone Sodium 1 gm/ Dextrose 50 ml @ 100 mls/hr Q24H IV 06/22/17 00:00 07/02/17 00:00 06/22/17 00:44 100 MLS/HR Miscellaneous (Iv Fluids Completed) 1 ea PRN PRN N/A 06/22/17 00:15 06/22/18 00:14 Review of Systems Review of Systems Constitutional: No fever, No chills Neurological: No dizzy Endocrine: + tired/sluggish, No excessive thirst Gastrointestinal: + abdominal pain, No indigestion, No nausea, No vomiting, No constipation Cardiovascular: No chest pain, No palpitations, No swelling ankles/feet Respiratory: No shortness of breath, No chronic cough Male : + frequent urination, + problem reported (very small voids) Physical Exam Vital Signs: Vital Signs Past 12 Hours Date Time Temp Pulse Resp B/P (MAP) Pulse Ox O2 Delivery O2 Flow Rate FiO2 06/22/17 08:15 Room Air 06/22/17 07:15 36.6 48 15 123/75 (91) 98 Room Air 06/21/17 23:28 36.7 61 16 128/79 Physical Exam: General Appearance: WD/WN, no apparent distress, + thin Eyes: bilateral eyes normal inspection ENT: normal ENT inspection, hearing grossly normal Neck: no adenopathy, no JVD, trachea midline Respiratory/Chest: no respiratory distress, no accessory muscle use Gastrointestinal: Abdomen: normal abdomen, pertinent finding (he has little to no left cva tenderness) Bladder: normal bladder Renal: normal renal Hernia: absent hernia Liver: normal liver Spleen: normal spleen Extremities: non-tender, normal inspection, no pedal edema, no calf tenderness Neurologic/Psychiatric: alert, normal mood/affect, oriented x 3 Skin: normal color, warm/dry, no rash Lymphatic: no adenopathy Assessment & Plan Assessment & Plan less than 5mm left UVJ stone as this stone has progressed tremendously from very upper ureter to the UVJ, I recommend further time to pass. He has difficulty staying in hospital due to PTSD and since he has been pain free for hours would favor going home. He should strain his urine to try to capture the stone when it passes from bladder. He may eat solid food I dont think he needs further antibiotics
--- NOTE | 2017-06-22 13:27 | Progress Note ---
Medicine Progress Note Date & Time of Visit: Jun 22, 2017 at 10:57. Subjective Pt was seen and examined Lying in bed comfortable with no distress Pt said that he feels fine He said that the pain improves significantly Denies any fever, palpitation, chest pain, dizziness and SOB Objective Last 8 Hrs Date Time Temp Pulse Resp B/P (MAP) Pulse Ox O2 Delivery O2 Flow Rate FiO2 06/22/17 08:15 Room Air 06/22/17 07:15 36.6 48 15 123/75 (91) 98 Room Air Physical Exam: General- No acute distress Head- atraumatic Eyes- PERRL, EOMI ENT- oropharynx clear Neck- supple, no JVD Lungs- clear to auscultation Heart- regular rhythm Abdomen- normal bowel sounds Extremities- no pretibial edema, no calf tenderness Neuro- alert, oriented x 3; PERRL, EOMI; no facial palsy Skin- warm & dry Laboratory Results: Last 24 Hours Test 06/21/17 21:09 06/21/17 21:19 06/22/17 06:15 Urine Color ORANGE Urine Appearance CLOUDY Urine pH 5.5 Urine Specific [place] 1.025 Urine Protein 1+ Urine Glucose (UA) NEG Urine Ketones TRACE Urine Occult Blood 3+ Urine Nitrite NEG Urine Bilirubin NEG Urine Urobilinogen NEG Urine Leukocyte Esterase TRACE Urine WBC (Auto) 1-5 /hpf Urine RBC (Auto) >30 /hpf Urine Hyaline Casts (Auto) 0 /lpf Urine Epithelial Cells (Auto) 0-5 /lpf Urine Bacteria (Auto) NEG White Blood Count 20.48 K/uL 12.27 K/uL Red Blood Count 4.80 M/uL 4.59 M/uL Hemoglobin 16.2 g/dL 14.8 g/dL Hematocrit 44.9 % 43.2 % Mean Corpuscular Volume 93.5 fL 94.1 fL Mean Corpuscular Hemoglobin 33.8 pg 32.2 pg Mean Corpuscular Hemoglobin Concent 36.1 g/dl 34.3 g/dl RDW Standard Deviation 45.4 fL 46.3 fL RDW Coefficient of Variation 13.2 % 13.5 % Platelet Count 210 K/uL 211 K/uL Mean Platelet Volume 10.7 fL 10.5 fL Sodium Level 137 mmol/L 141 mmol/L Potassium Level 3.7 mmol/L 4.2 mmol/L Chloride Level 103 mmol/L 108 mmol/L Carbon Dioxide Level 27 mmol/L 24 mmol/L Anion Gap 7.0 mmol/L 9.0 mmol/L Blood Urea Nitrogen 8 mg/dl 7 mg/dl Creatinine 1.00 mg/dl 0.75 mg/dl Est Creatinine Clear Calc Drug Dose 114.8 ml/min 153.1 ml/min Estimated GFR () 114.9 140.7 Estimated GFR (Non- 99.1 121.4 BUN/Creatinine Ratio 8.4 9.9 Random Glucose 97 mg/dl 85 mg/dl Calcium Level 9.1 mg/dl 8.1 mg/dl Neutrophils (%) (Auto) 60.1 % Lymphocytes (%) (Auto) 27.1 % Monocytes (%) (Auto) 8.4 % Eosinophils (%) (Auto) 3.8 % Basophils (%) (Auto) 0.2 % Neutrophils # (Auto) 7.37 K/uL Lymphocytes # (Auto) 3.32 K/uL Monocytes # (Auto) 1.03 K/uL Eosinophils # (Auto) 0.47 K/uL Basophils # (Auto) 0.03 K/uL Immature Granulocyte % (Auto) 0.4 % Immature Granulocyte # (Auto) 0.05 K/uL Magnesium Level 2.0 mg/dl Date/Time Source Procedure Growth Status 06/22/17 04:21 Urine,Catheterized Urine Culture Pending Received Assessment & Plan Left renal stone Hx of recurrent kidney stone KUB showed a 4 mm distal left ureteral calculus. Continue IV fluid and Flomax Urology on Board Case discussed with dr. Mondragon Recommended to give it some time to pass the stone since it has progressed tremendously from very upper ureter to the UVJ Since pt has no pain at this time and he has difficulty staying in hospital due to PTSD Pt prefers to go home and urology ok with that Pt was advised to strain his urine to try to capture the stone when the stone passes he will follow with urology Advised pt if pain worsening to come back to the hospital Elevated WBC Possible reactive Afebrile WBC trending down UA only showed trace leucocytes Received rocephin IV urine cx pending will d/c antibiotic PTSD Has difficulty to stay in the hospital Prefer to go home Stable Deep venous thrombosis prophylaxis. SCDs and TEDs . Code Status Full code Disposition: Will discharge home today Follow up with Urology dr. Mondragon Consultants: Urology Current Inpatient Medications: Current Inpatient Medications Medications (Trade) Dose Ordered Sig/Esthela Route Start Time Stop Time Status Last Admin Dose Admin Acetaminophen (Tylenol Tab) 650 mg Q4H PRN PO 06/21/17 22:30 07/21/17 22:29 Al Hydrox/Mg Hydrox/Simethicone (Maalox Max Susp) 15 ml Q4H PRN PO 06/21/17 22:30 07/21/17 22:29 Magnesium Hydroxide (Milk Of Magnesia Susp) 30 ml Q6H PRN PO 06/21/17 22:30 07/21/17 22:29 Ondansetron HCl (Zofran Inj) 4 mg Q6H PRN IV 06/21/17 22:30 07/21/17 22:29 Tamsulosin HCl (Flomax Cap) 0.4 mg DAILY PO 06/22/17 09:00 07/22/17 08:59 06/22/17 08:18 0.4 MG Morphine Sulfate (MoRPHine SULFATE INJ) 3 mg Q3HWA PRN IV 06/21/17 22:30 07/05/17 22:29 06/22/17 06:11 3 MG Ketorolac Tromethamine (Toradol Inj) 30 mg Q6H PRN IV 06/21/17 22:30 06/26/17 22:29 Sodium Chloride 1,000 ml @ 125 mls/hr Q8H IV 06/22/17 00:00 07/22/17 00:00 06/22/17 08:24 125 MLS/HR Ceftriaxone Sodium 1 gm/ Dextrose 50 ml @ 100 mls/hr Q24H IV 06/22/17 00:00 07/02/17 00:00 06/22/17 00:44 100 MLS/HR Miscellaneous (Iv Fluids Completed) 1 ea PRN PRN N/A 06/22/17 00:15 06/22/18 00:14
[2017-06-22] MEDS ORDERED: NAPR550T22 PO (13:41)
--- NOTE | 2017-06-22 13:45 | Discharge Instructions ---
Discharge Instructions Date of Service Jun 22, 2017. Admission Reason for Admission: Failure Of Outpatient Treatment, Left Renal Colic Discharge Discharge Diagnosis / Problem: Left Renal Stone, Elevated Leukocytosis Discharge Goals Goal(s): Decrease discomfort, Improve function, Improve disease control Activity Recommendations Activity Limitations: resume your previous activity (as tolerated) . Instructions / Follow-Up Instructions / Follow-Up Follow up with Dr. Mondragon on 07/08 @ 9:00 am ( already had appointment schedule ) Follow up with your primary care physician You should strain your urine to try to capture the stone when the stone passes from bladder. Please do not drive or operate any machine after taking the pain medication ( hydrocodone) Current Hospital Diet Patient's current hospital diet: Regular Diet Discharge Diet Recommended Diet: Regular Diet Pending Studies Studies pending at discharge: yes List of pending studies: Urine culture Medical Emergencies . Who to Call and When: Medical Emergencies: If at any time you feel your situation is an emergency, please call 911 immediately. . Non-Emergent Contact Non-Emergency issues call your: Primary Care Provider Call Non-Emergent contact if: you have a fever, your pain is not controlled, your pain is worsening, you have any medication questions . . "Provider Documentation" section prepared by Liana Reynolds. . VTE Core Measure Inpt VTE Proph given/why not?: SCD's [place] Drug Monitoring Program Search Results: no issues identified
[2017-06-22 13:58] VITALS: BP 123/75; PULSE 48; TEMP 36.6; O2SAT 98
[2017-06-22] MEDS ORDERED: HYDR-3419 PO (14:01)
--- NOTE | 2017-06-24 07:58 | Discharge Summary ---
Discharge Summary Date of Service Jun 24, 2017. Discharge Summary Admission Date: Jun 21, 2017 at 22:32 Discharge Date: Jun 22, 2017 Discharge Disposition: Home Principal Diagnosis: Left Renal Stone Secondary Diagnoses/Problems: Elevated Leukocytosis Procedures: KUB CLINICAL HISTORY: EVALUATE FOR OBSTRUCTION/STONE pain COMPARISON STUDY: 06/20/2017 FINDINGS: Unchanging distal left ureteral calculus. This again measures approximately 4 mm it is unchanged in position compared to the prior study. Bowel pattern is nonobstructive. IMPRESSION: Unchanged position of a distal left ureteral calculus. The above report was generated using voice recognition software. It may contain grammatical, syntax or spelling errors. Electronically signed by: Pete Jorge M.D. 06/21/2017 9:27 PM Dictated Date/Time: 06/21/2017 9:26 PM Consultations: Urology Medication Reconciliation New Medications: Hydrocodon/Acetaminophen 5MG/300MG (Vicodin (5MG/300MG)) 1 Tab Tab 1 TAB PO Q8 PRN for Pain for 3 Days, #9 TAB hold for drowsiness and lethargy Continued Medications: Tamsulosin HCl (Tamsulosin HCl) 0.4 Mg Cap 0.4 MG PO DAILY Admission Information HPI (per Admitting provider): CHIEF COMPLAINT: Left renal colic. HISTORY OF PRESENT ILLNESS: This is a 31-year-old male with past medical history significant for kidney stones, chronic lumbar back pain, presents with left renal colic. The patient was in the hospital in May 26 with left renal stone and after his pain got resolved he signed out AMA and followed with urology as an outpatient. He was placed on Flomax and renal stone diet was explained and he was supposed to follow with urology in couple of weeks to see if he passed the stone.But he had severe pain yesterday and he thought the stone was too big to pass and came to ER and requested for ultrasound KUB which showed 4 mm left ureterovesical junction stone and after treatment he became pain free and he was okay to discharge home. But again today at around 3-4 o'clock in the afternoon, he started to have severe abdominal pain in his left flank region radiating into the groin which he could not tolerate thus came back to the ER again. Denies any nausea, vomiting. No fever, chills. Denies any headaches, no blurred vision, no dizziness, no sore throat, no chest pain, no cough, no shortness of breath, no nausea, no vomiting. Normal bowel and bladder and he also says he had some hematuria today. Denies any blood in the stools, no black stools. Appetite is okay. No swelling in the legs. No skin rash. Currently, resting comfortable and hemodynamically stable. Physical Exam (per Admitting): PHYSICAL EXAMINATION: GENERAL: The patient is of moderate build, not in distress. VITAL SIGNS: Temperature 36.7, pulse 70, respiratory rate 20, blood pressure 142/70, oxygen 97% room air. HEENT: No pallor, no icterus. Pupils equal, round, and reactive to light. NECK: No JVD, no neck masses, no carotid bruits. CARDIOVASCULAR: S1, S2 heard, regular rate and rhythm, no murmur, no gallop. RESPIRATORY SYSTEM: Clear to auscultation bilaterally. No wheezing, no crackles. ABDOMEN: Soft, bowel sounds present. Mild left CVA tenderness present, no guarding or rigidity. CENTRAL NERVOUS SYSTEM: Cranial nerves II-XII grossly intact. Nonfocal. EXTREMITIES: No edema. Hospital Course Left renal stone Hx of recurrent kidney stone KUB showed a 4 mm distal left ureteral calculus. Continue IV fluid and Flomax Urology on Board Case discussed with dr. Mondragon Recommended to give it some time to pass the stone since it has progressed tremendously from very upper ureter to the UVJ Since pt has no pain at this time and he has difficulty staying in hospital due to PTSD Pt prefers to go home and urology ok with that Pt was advised to strain his urine to try to capture the stone when the stone passes he will follow with urology Advised pt if pain worsening to come back to the hospital Elevated WBC Possible reactive Afebrile WBC trending down UA only showed trace leucocytes Received rocephin IV urine cx pending will d/c antibiotic PTSD Has difficulty to stay in the hospital Prefer to go home Stable Deep venous thrombosis prophylaxis. SCDs and TEDs . Code Status Full code Disposition: Will discharge home today Follow up with Urology dr. Mondragon Total time spent on discharge = 35 minutes This includes examination of the patient, discharge planning, medication reconciliation, and communication with other providers. Discharge Instructions Discharge Instructions Date of Service Jun 22, 2017. Admission Reason for Admission: Failure Of Outpatient Treatment, Left Renal Colic Discharge Discharge Diagnosis / Problem: Left Renal Stone, Elevated Leukocytosis Discharge Goals Goal(s): Decrease discomfort, Improve function, Improve disease control Activity Recommendations Activity Limitations: resume your previous activity (as tolerated) . Instructions / Follow-Up Instructions / Follow-Up Follow up with Dr. Mondragon on 07/08 @ 9:00 am ( already had appointment schedule ) Follow up with your primary care physician You should strain your urine to try to capture the stone when the stone passes from bladder. Please do not drive or operate any machine after taking the pain medication ( hydrocodone) Current Hospital Diet Patient's current hospital diet: Regular Diet Discharge Diet Recommended Diet: Regular Diet Pending Studies Studies pending at discharge: yes List of pending studies: Urine culture Medical Emergencies . Who to Call and When: Medical Emergencies: If at any time you feel your situation is an emergency, please call 911 immediately. . Non-Emergent Contact Non-Emergency issues call your: Primary Care Provider Call Non-Emergent contact if: you have a fever, your pain is not controlled, your pain is worsening, you have any medication questions . . "Provider Documentation" section prepared by Liana Reynolds. . VTE Core Measure Inpt VTE Proph given/why not?: SCD's [place] Drug Monitoring Program Search Results: no issues identified
== END 2017-06-22 14:26 | disposition home or self-care (01) | DRG 694 ==
LOC: C.EDB 20:44 → C.MSW 22:32 → ENRESERV 22:36 → EDBEDREQ 22:37
PROVIDERS: ADMIT Internal Medicine; ATTEND Internal Medicine
DX: N20.1 Calculus of ureter (principal); D72.829 Elevated white blood cell count, unspecified; I10 Essential (primary) hypertension; F17.200 Nicotine dependence, unspecified, uncomplicated; F43.10 Post-traumatic stress disorder, unspecified

== ENCOUNTER 2019-06-13 21:28 | Inpatient (IN) ==
[2019-06-13 22:09] LABS: Hematocrit (blood only) 52.6 % (42-52); Hemoglobin 19.5 g/dL (14.0-18.0); Mean Corpuscular Hemoglobin 35.1 pg (25-34); Mean Corpuscular Hgb Conc 37.1 g/dL (32-36); Mean Corpuscular Volume 94.8 fL (80-100); Mean Platelet Volume 10.7 fL (7.4-10.4); Platelet Count 216 K/uL (130-400); RDW Coefficient of Variation 13.3 % (11.5-14.5); RDW Standard Deviation 46.5 fL (36.4-46.3); Red Blood Count 5.55 M/uL (4.7-6.1)
[2019-06-13 22:21] LABS: Alanine Aminotransferase 28 U/L (12-78); Albumin Level 4.3 gm/dl (3.4-5.0); Aspartate Aminotransferase 21 U/L (15-37); BUN Creatinine Ratio 10.7 (10-20); Blood Urea Nitrogen 13 mg/dl (7-18); Calcium 10.5 mg/dl (8.5-10.1); Carbon Dioxide 20 mmol/L (21-32); Chloride 102 mmol/L (98-107); Est GFR (Non-African American) 77.6; Glucose 193 mg/dl (70-99); Lipase 71 U/L (73-393); Potassium 3.3 mmol/L (3.5-5.1); Sodium 135 mmol/L (136-145)
[2019-06-13 22:24] LABS: Albumin Globulin Ratio 1.2 (0.9-2); Alkaline Phosphatase 73 U/L (45-117); Bilirubin,Total 0.7 mg/dl (0.2-1); Globulin 3.7 gm/dl (2.5-4.0)
[2019-06-13] MEDS ORDERED: MoRPHine SULFATE 10 MG/ML CARP/VIAL IV STA (22:24)
[2019-06-13] MEDS ORDERED: SODIUM CHLORIDE 0.9% 1000ML 2,000 ML IV ONE (22:24)
[2019-06-13] MEDS ORDERED: ONDANSETRON INJ 2 MG/ML 2 ML VIAL IV STA (22:26)
[2019-06-13 22:33] LABS: Appearance Urine Clear (Clear); Blood Urine Negative (Negative); Color Urine Amber; Glucose Urine UA Negative (Negative); Ketones Urine 1+ (Negative); Leukocyte Esterase Urine Negative (Negative); Nitrite Urine Positive (Negative); Protein Urine 1+ (Negative); Specific Gravity Urine 1.025 (1.000-1.030); Urobilinogen Urine Negative (Negative)
[2019-06-13 22:34] LABS: Bilirubin Urine Negative (Negative); Ictotest Urine Negative (Negative)
[2019-06-13 22:37] LABS: Basophils # (auto) 0.05 K/uL (0-0.2); Basophils % (auto) 0.2 %; Eosinophils # (auto) 0.33 K/uL (0-0.5); Eosinophils % (auto) 1.2 %; Immature Granulocytes # (auto) 0.16 K/uL (0.00-0.02); Immature Granulocytes % (auto) 0.6 %; Lymphocytes # (auto) 3.93 K/uL (1.2-3.4); Lymphocytes % (auto) 14.1 %; Monocytes # (auto) 0.97 K/uL (0.11-0.59); Monocytes % (auto) 3.5 %; Neutrophils # (auto) 22.46 K/uL (1.4-6.5); Neutrophils % (auto) 80.4 %
[2019-06-13 22:40] LABS: RBC Urine 0-4 /hpf (0-4)
[2019-06-13 22:41] LABS: Bacteria Urine Negative (Negative); Hyaline Casts Urine 0-5 /lpf (0-5); WBC Urine 0-5 /hpf (0-5)
[2019-06-13] MEDS ORDERED: IOVERSOL 100ml IV PRN (23:36)
[2019-06-14 00:05] LABS: Acetaminophen < 2 ug/ml (10-30)
[2019-06-14] MEDS ORDERED: SODIUM CHLORIDE 0.9% 1000ML 1,000 ML IV ONE (00:07)
[2019-06-14] MEDS ORDERED: PIPERACILL/TAZOBAC CONSULT ACTIVE PRN ×2 (00:07→02:40)
[2019-06-14] MEDS ORDERED: PIPERACILLIN/TAZOBACTAM 4.5 GM/120 ML BAG IV ONE (00:07)
[2019-06-14] MEDS ORDERED: MoRPHine SULFATE 4 MG/ML 1 ML CARP\\VIAL IV STA (00:31)
--- NOTE | 2019-06-14 01:55 | Emergency Department Note ---
Entered by Amaury Alva acting as a scribe for Kofi Shoemaker M.D. History of Present Illness General Chief complaint: Abdominal Pain Stated complaint: ABD PAIN Source: patient History of Present Illness Onset (ago): hour(s) 2 Location: abdomen (lower abdomen) Radiation: abdomen (upper) Pain Consistency: + other (worsening) Maximum Pain Intensity: 10 Relieved By: + none Associated symptoms: + nausea/vomiting The patient is a 33 year old M who presents to the Emergency Room with complaints of worsening abdominal problems that started 2 hours ago. He notes that he had lunch to eat and went to sleep around 1 pm. He states that he was woken up from his sleep, 2 hours ago, due to his abdominal pain. He adds that his abdominal pain is located in his lower abdomen with some radiation to his upper abdomen. He denies that he had dinner today. He notes that he is currently experiencing nausea and vomiting. He adds that he vomited a couple of times, prior to coming into the ED. He denies any recent travel, recent falls, and being around anyone sick. He also denies experiencing these problems before. He notes that he has a history of back issues. He denies a history of abdominal surgeries. Home Medications Home Medications Medication Instructions Recorded Confirmed Type cyclobenzaprine 10 mg PO TID PRN #15 tab 03/14/19 06/13/19 Rx hydrocodone-acetaminophen [Katy] 1 tab PO Q6H PRN #15 tab 03/14/19 06/13/19 Rx duloxetine 40 mg PO DAILY 06/13/19 06/13/19 History Allergies Allergy/AdvReac Type Severity Reaction Status Date / Time bacitracin Allergy Unknown HIVES Verified 06/13/19 23:45 neomycin Allergy Unknown HIVES Verified 06/13/19 23:45 polymyxin B Allergy Unknown HIVES Verified 06/13/19 23:45 Past Med/Surg History Medical History Hypertension (Chronic) Kidney stones (Chronic) No pertinent past medical history Family History Other Cancer Hypertension Social History Preferred Language: Mongolian Feels Safe at Home: Yes Smoking Status: Current every day smoker Review of Systems See HPI for pertinent positives & negatives. and A total of 10 systems reviewed and were otherwise negative Physical Exam Vital Signs Vital Signs - 24 hr 06/13/19 21:28 06/13/19 23:28 06/14/19 01:17 Temperature Source Oral Sepsis Recent Fever Within 48 Hours No Sepsis Action Taken by Nursing No Action Required Pulse Rate 108 H Pulse Rate [Left] 68 64 Pulse Rhythm Regular Pulse Rhythm [Left] Regular Regular Pulse Strength Normal Pulse Strength [Left] Normal Normal Respiratory Rate 32 H 20 16 Respiratory Effort / Characteristics Non-Labored Spontaneous Non-Labored Spontaneous Respiratory Depth Normal Normal Normal Respiratory Pattern Regular Regular Blood Pressure 175/113 H Blood Pressure [Right Arm] 183/111 H 182/102 H Blood Pressure Mean 133 Blood Pressure Mean [Right Arm] 135 128 Blood Pressure Position Sitting Blood Pressure Position [Right Arm] Sitting Lying Pulse Oximetry 100 97 99 Oxygen Delivery Method Room Air Room Air Room Air GENERAL: Awake, alert, uncomfortable-appearing on litter HENT: Normocephalic, atraumatic. EYES: Normal conjunctiva. Sclera non-icteric. NECK: Supple. No nuchal rigidity. RESPIRATORY: Clear to auscultation. No wheezes. Normal respiratory effort. CARDIAC: Tachycardic rate. Normal rhythm. Extremities warm and well perfused. GI: Soft, non-distended. Lower abdominal tenderness to palpation. No masses. RECTAL: Deferred. MUSCULOSKELETAL: Atraumatic. Chest examination reveals no tenderness. There is no CVA tenderness to palpation. LOWER EXTREMITIES: Calves are equal size bilaterally and non-tender. No edema NEURO: Normal sensorium. No sensory or motor deficits noted. No facial droop. SKIN: Warm and dry. No rash or jaundice noted. Course 2219: The patient was evaluated in room B5. A complete history and physical exam was performed. 2241: The ED nurse states that the patient took all of his pain medications today in an attempt to harm himself. 0034: I re-checked the patient. The patient notes that she still has some abdominal pain. The patient will be admitted to the hospital. 0040: I reviewed the patient's case with Shivani Rocha. He will evaluate the patient for further management. Consultations Consultation #1: I reviewed the patient's case with Shivani Rocha. He will evaluate the patient for further management. Time: 00:40 Administered Medications Ioversol (Optiray 320 100ml) 94 ml IV ONCE PRN PRN Reason: Interaction Checking Stop: 06/17/19 23:35 Last Admin: 06/13/19 23:37 Dose: 94 ml Documented by: [id number] Discontinued Medications Sodium Chloride (Nss 1000ml) 2,000 mls @ 999 mls/hr IV .Q2H1M ONE Stop: 06/14/19 00:24 Last Infusion: 06/14/19 00:55 Dose: 0 mls/hr Documented by: [id number] Admin: 06/13/19 22:33 Dose: 999 mls/hr Documented by: [id number] Piperacillin Sod/Tazobactam Sod (Zosyn) 4.5 gm in 120 mls @ 240 mls/hr IV NOW ONE Stop: 06/14/19 00:36 Last Admin: 06/14/19 00:55 Dose: 240 mls/hr Documented by: [id number] Sodium Chloride (Nss 1000ml) 1,000 mls @ 999 mls/hr IV .Q1H1M ONE Stop: 06/14/19 01:07 Last Admin: 06/14/19 00:15 Dose: 999 mls/hr Documented by: [id number] Morphine Sulfate (Morphine Sulfate) 6 mg IV NOW STA Stop: 06/13/19 22:25 Last Admin: 06/13/19 22:33 Dose: 6 mg Documented by: [id number] Morphine Sulfate (Morphine Sulfate) 4 mg IV NOW STA Stop: 06/14/19 00:32 Last Admin: 06/14/19 00:40 Dose: 4 mg Documented by: [id number] Ondansetron HCl (Zofran) 4 mg IV NOW STA Stop: 06/13/19 22:27 Last Admin: 06/13/19 22:33 Dose: 4 mg Documented by: [id number] Medical Decision Making Differential Diagnosis Differential diagnoses includes but is not limited to gastritis, peptic ulcer disease, GERD, gallbladder disease, pancreatitis, small bowel obstruction, acute coronary syndrome, pericarditis, ischemic bowel, irritable bowel disease, irritable bowel syndrome, appendicitis, diverticulitis, malignancy, hernia, urinary tract infection, torsion, perforation, trauma, infectious. Medical Records Attestation: I reviewed the patient's medical records. Home Medications Current Medication List: was personally reviewed by me Laboratory Data Attestation: I reviewed the patient's lab results. Result diagrams: 06/13/19 21:55 06/13/19 21:55 Lab Results 06/13/19 06/13/19 06/13/19 Range/Units 21:55 21:55 22:25 WBC 27.90 H (4.8-10.8) K/uL RBC 5.55 (4.7-6.1) M/uL Hgb 19.5 H (14.0-18.0) g/dL Hct 52.6 H (42-52) % MCV 94.8 (80-100) fL MCH 35.1 H (25-34) pg MCHC 37.1 H (32-36) g/dL RDW Std Deviation 46.5 H (36.4-46.3) fL RDW Coeff of Christian 13.3 (11.5-14.5) % Plt Count 216 (130-400) K/uL MPV 10.7 H (7.4-10.4) fL Immature Gran % (Auto) 0.6 % Neut % (Auto) 80.4 % Lymph % (Auto) 14.1 % [place] % (Auto) 3.5 % Eos % (Auto) 1.2 % Baso % (Auto) 0.2 % Immature Gran # (Auto) 0.16 H (0.00-0.02) K/uL Neut # (Auto) 22.46 H (1.4-6.5) K/uL Lymph # (Auto) 3.93 H (1.2-3.4) K/uL [place] # (Auto) 0.97 H (0.11-0.59) K/uL Eos # (Auto) 0.33 (0-0.5) K/uL Baso # (Auto) 0.05 (0-0.2) K/uL Sodium 135 L (136-145) mmol/L Potassium 3.3 L (3.5-5.1) mmol/L Chloride 102 (98-107) mmol/L Carbon Dioxide 20 L (21-32) mmol/L Anion Gap 13.0 H (3-11) BUN 13 (7-18) mg/dl Creatinine 1.21 (0.6-1.4) mg/dl Est Cr Clr Drug Dosing Not Reportable Est GFR ( Amer) 90.0 Est GFR (Non-Af Amer) 77.6 BUN/Creatinine Ratio 10.7 (10-20) Glucose 193 H (70-99) mg/dl POC Lactic Acid Ramos (0.90-1.70) mmol/L Calcium 10.5 H (8.5-10.1) mg/dl Total Bilirubin 0.7 (0.2-1) mg/dl AST 21 (15-37) U/L ALT 28 (12-78) U/L Alkaline Phosphatase 73 (45-117) U/L Total Protein 8.0 (6.4-8.2) gm/dl Albumin 4.3 (3.4-5.0) gm/dl Globulin 3.7 (2.5-4.0) gm/dl Albumin/Globulin Ratio 1.2 (0.9-2) Lipase 71 L (73-393) U/L Urine Color Giuliana Urine Appearance Clear (Clear) Urine pH 5.0 (4.5-7.5) Ur Specific [place] 1.025 (1.000-1.030) Urine Protein 1+ H (Negative) Urine Glucose (UA) Negative (Negative) Urine Ketones 1+ H (Negative) Urine Blood Negative (Negative) Urine Nitrite Positive A (Negative) Urine Bilirubin Negative (Negative) Urine Urobilinogen Negative (Negative) Ur Leukocyte Esterase Negative (Negative) Urine RBC 0-4 (0-4) /hpf Urine WBC 0-5 (0-5) /hpf Ur Epithelial Cells 5-10 H (0-5) /lpf Urine Bacteria Negative (Negative) Hyaline Casts 0-5 (0-5) /lpf Salicylates (2.8-20) mg/dl Acetaminophen (10-30) ug/ml Ethyl Alcohol mg/dL (0-3) mg/dl 06/13/19 06/13/19 06/13/19 Range/Units 23:14 23:14 23:16 WBC (4.8-10.8) K/uL RBC (4.7-6.1) M/uL Hgb (14.0-18.0) g/dL Hct (42-52) % MCV (80-100) fL MCH (25-34) pg MCHC (32-36) g/dL RDW Std Deviation (36.4-46.3) fL RDW Coeff of Christian (11.5-14.5) % Plt Count (130-400) K/uL MPV (7.4-10.4) fL Immature Gran % (Auto) % Neut % (Auto) % Lymph % (Auto) % [place] % (Auto) % Eos % (Auto) % Baso % (Auto) % Immature Gran # (Auto) (0.00-0.02) K/uL Neut # (Auto) (1.4-6.5) K/uL Lymph # (Auto) (1.2-3.4) K/uL [place] # (Auto) (0.11-0.59) K/uL Eos # (Auto) (0-0.5) K/uL Baso # (Auto) (0-0.2) K/uL Sodium (136-145) mmol/L Potassium (3.5-5.1) mmol/L Chloride (98-107) mmol/L Carbon Dioxide (21-32) mmol/L Anion Gap (3-11) BUN (7-18) mg/dl Creatinine (0.6-1.4) mg/dl Est Cr Clr Drug Dosing Est GFR ( Amer) Est GFR (Non-Af Amer) BUN/Creatinine Ratio (10-20) Glucose (70-99) mg/dl POC Lactic Acid Ramos 3.86 H (0.90-1.70) mmol/L Calcium (8.5-10.1) mg/dl Total Bilirubin (0.2-1) mg/dl AST (15-37) U/L ALT (12-78) U/L Alkaline Phosphatase (45-117) U/L Total Protein (6.4-8.2) gm/dl Albumin (3.4-5.0) gm/dl Globulin (2.5-4.0) gm/dl Albumin/Globulin Ratio (0.9-2) Lipase (73-393) U/L Urine Color Urine Appearance (Clear) Urine pH (4.5-7.5) Ur Specific [place] (1.000-1.030) Urine Protein (Negative) Urine Glucose (UA) (Negative) Urine Ketones (Negative) Urine Blood (Negative) Urine Nitrite (Negative) Urine Bilirubin (Negative) Urine Urobilinogen (Negative) Ur Leukocyte Esterase (Negative) Urine RBC (0-4) /hpf Urine WBC (0-5) /hpf Ur Epithelial Cells (0-5) /lpf Urine Bacteria (Negative) Hyaline Casts (0-5) /lpf Salicylates 2.0 L (2.8-20) mg/dl Acetaminophen < 2 L (10-30) ug/ml Ethyl Alcohol mg/dL < 3.0 (0-3) mg/dl Imaging Data Radiologist's Impression: Radiology results as stated below per my review and the radiologist's interpretation: CT ABDOMEN & PELVIS with Contrast Compared to 05/30/17 Inspissated distal stool with proximal colonic dilation. Suspect fecal impaction. Cannot exclude a mild superimposed colitis. No perforation. Unremarkable appendix. Small sliding-type hiatal hernia. Blood Pressure Blood Pressure Findings: Elevated blood pressure Blood Pressure Disposition: further management by hospitalist JOCE Narrative Patient is a 33-year-old gentleman presenting today complaining of lower abdominal pain starting at 8 PM this evening. States he has had 3 episodes of vomiting and no bowel movements. Tachycardic and somewhat tachypneic upon arrival. Appears in comfort with significant lower abdominal pain. No trauma. No recent illnesses. Urine appears very concentrated. History of kidney stone reported otherwise. CT scan abdomen pelvis completed basic laboratory studies ordered. Patient has significant leukocytosis of 27 with a hemoglobin of 19.5 c oncern for some hemoconcentration. Denies alcohol today. No evidence of significant renal dysfunction. Evidence of possible UTI as there is nitrate positive - but no other signs of WBC/leuk esterase. No evidence of hepatitis or pancreatitis. No bilirubin elevation. Patient later voice due to his pain that he thought of taking all of his pain medication. Do not believe clearly that he endorses SI or HI. Seems like this was very passive statement as he was requesting pain medicine at that time. Do not believe he is a safety risk. Given the patient elevated lactate and leukocytosis I did empirically give the patient a dose of Zosyn. Again he said no significant diarrhea although I did order stool cultures. CT scan with normal appendix and some colonic dilation questioning fecal impaction versus mild colitis without perforation per stat rad. Given additional morphine. Given his symptoms and the nitrate on the urine and did receive broad-spectrum antibiotics. Not clearly with a source at this time. Bld cx obtained. Believe continue monitoring in the hospital would be recommended and discussed with the [facility] hospitalist. Impression & Plan Abdominal pain, Leukocytosis, Colitis, Nausea Discharge Plan Visit Data Chief Complaint: Abdominal Pain Stated Complaint: ABD PAIN ED Provider: Kofi Shoemaker Discharge Problem: Abdominal pain, Leukocytosis, Colitis, Nausea Patient Disposition: Admitted As Inpatient Forms Stand Alone Forms: Call Back Authorization, [facility] Prescriptions Prescriptions: No Action cyclobenzaprine 10 mg tablet 10 mg PO TID PRN (Reason: muscle spasm) Qty: 15 RF: 0 hydrocodone-acetaminophen [Katy] 5-325 mg tablet 1 tab PO Q6H PRN (Reason: pain) Qty: 15 RF: 0 duloxetine 20 mg capsule,delayed release(DR/EC) 40 mg PO DAILY RF: 0 Referrals Referrals: Cori Fish DO [Primary Care Provider] - Discharge Problem: Abdominal pain Qualifiers: Abdominal location: lower abdomen, unspecified Qualified Code(s): R10.30 - Lower abdominal pain, unspecified Leukocytosis Qualifiers: Leukocytosis type: unspecified Qualified Code(s): D72.829 - Elevated white blood cell count, unspecified The scribe's documentation has been prepared under my direction and personally reviewed by me in its entirety. I confirm that the note above accurately reflects all work, treatment, procedures, and medical decision making performed by me.
--- NOTE | 2019-06-14 02:20 | History and Physical Report ---
DATE OF ADMISSION: 06/14/2019 CHIEF COMPLAINT: Fever, abdominal pain. HISTORY OF PRESENT ILLNESS: This is a 33-year-old male with past medical history significant for posttraumatic stress disorder, chronic back pain, history of ureteral stone, presents with severe abdominal pain, starting in the evening. He had his lunch in the afternoon. He was somewhat constipated and small bowel movement today, but the pain is severe, so he called ambulance and came here. He received several doses of pain medication, currently pain is 4/10 in severity. He also has some nausea and vomiting, few episodes. Denies any blood in the vomitus. No black stools or blood in the stools. Currently, his hemodynamics are stable. Denies nausea. No chest pain, no shortness of breath, no cough, no fever, no chills, no headache, no dizziness, no blurred vision, no earache, no runny nose, no sore throat, no rash. Has some burning micturition, no hematuria. PAST MEDICAL HISTORY: As mentioned above. PAST SURGICAL HISTORY: Lasik surgery, excision of the pelvic subcutaneous tumor. MEDICATIONS: He is on cyclobenzaprine 10 mg p.o. t.i.d. p.r.n., Cymbalta 40 mg p.o. daily, [place] 5/325 mg 1 tablet every 6 hours p.r.n. FAMILY HISTORY: Significant for, mother had hypertension and lung cancer. Maternal grandfather and grandmother had cancer. SOCIAL HISTORY: Lives alone. Smokes 1 pack a day for 10 years. Alcohol rare. No drug use, marijuana as per Epic. REVIEW OF SYMPTOMS: As per HPI. Rest of review of systems negative. PHYSICAL EXAMINATION: GENERAL: The patient is of moderate build, not in acute distress. VITAL SIGNS: Temperature afebrile, pulse 64, respiratory rate 16, blood pressure 182/102, oxygen 98% on room air. HEENT: No pallor, no icterus. Pupils equal, round, reactive to light. NECK: No JVD, no neck mass, no carotid bruit. CARDIOVASCULAR: S1, S2 heard, regular rate and rhythm, no murmur, no gallop. RESPIRATORY SYSTEM: Normal AP diameter. No thyromegaly. No wheezing, no crackles. ABDOMEN: Soft, diffuse tenderness, no rebound tenderness. Mild guarding, no rigidity. No distention. CENTRAL NERVOUS SYSTEM: Cranial nerves II-XII grossly intact. Nonfocal. EXTREMITIES: No edema, no erythema. LABORATORY DATA: WBC 27.9, hemoglobin 19.5, hematocrit 52.6, platelets 216. Sodium 135, potassium 3.3, chloride 102, bicarbonate 20, BUN 13, creatinine 1.2, serum glucose 193. Tnufk-ot-bbwd lactic acid was 3.8, calcium 10.5, total bilirubin 0.7, AST 21, ALT 28, alkaline phosphatase 73, lipase 71. Urinalysis positive for nitrite. Salicylate less than 2. Acetaminophen less than 2, ethyl alcohol less than 3. CT of abdomen and pelvis report pending. ASSESSMENT AND PLAN: A 33-year-old male presents with severe abdominal pain, received iv pain medication in the ER. Vrfot-dq-ofri lactic acid is 3.8. Stat abdomen and pelvis unremarkable. We will wait for official report. He has a leukocytosis of 27,000. IV Zosyn was started in the ER, which we will continue and follow the cultures. IV Dilaudid p.r.n., IV normal saline 150 mL per hour. Follow the response. We will follow the repeat lactic acid levels. glucose 193. We will monitor and check his HbA1c levels. Hypokalemia: We will replace Chronic back pain: Pain medications. We will also follow urine drug screen. Mood disorder, posttraumatic stress disorder with anxiety: Continue his Cymbalta. Deep venous thrombosis prophylaxis, sequential compression devices. DISPOSITION: Admit to med/surg tele. Level 1 full code. MTDD
[2019-06-14] MEDS ORDERED: ACETAMINOPHEN 325 MG TAB PO PRN ×2 (02:40→09:39)
[2019-06-14] MEDS ORDERED: HYDROCODONE/ACETAMOPHEN 5/325MG TAB PO PRN (02:40)
[2019-06-14] MEDS ORDERED: PIPERACILLIN/TAZOBACTAM 4.5 GM in DEXTROSE 5% 100 ML IV SCH (02:40)
[2019-06-14] MEDS ORDERED: POLYETHYLENE (MIRALAX) 17 GM PACK PO PRN (02:40)
[2019-06-14] MEDS ORDERED: NITROGLYCERIN SL 0.4 MG/TAB TAB SL PRN (02:40)
[2019-06-14] MEDS ORDERED: CYCLOBENZAPRINE HCL 10 MG TAB PO PRN (02:40)
[2019-06-14] MEDS: HYDROmorphone INJ 0.5 MG/0.5 ML SYR IV PRN ×6 (02:59→23:23)
[2019-06-14] MEDS: SODIUM CHLORIDE 0.9% 1000ML 1,000 ML IV SCH ×2 (03:35→09:20)
[2019-06-14] MEDS ORDERED: HydrALAZINE HCL 20 MG/ML VIAL IV PRN (04:10)
[2019-06-14] MEDS ORDERED: POTASSIUM CHLORIDE 20 MEQ TABCR PO STA (04:11)
[2019-06-14 05:22] LABS: Hematocrit (blood only) 47.6 % (42-52); Hemoglobin 17.2 g/dL (14.0-18.0); Mean Corpuscular Hemoglobin 33.7 pg (25-34); Mean Corpuscular Hgb Conc 36.1 g/dL (32-36); Mean Corpuscular Volume 93.3 fL (80-100); Mean Platelet Volume 10.3 fL (7.4-10.4); Platelet Count 186 K/uL (130-400); RDW Coefficient of Variation 13.1 % (11.5-14.5); White Blood Count 27.26 K/uL (4.8-10.8)
[2019-06-14] MEDS: PIPERACILLIN/TAZOBACTAM 3.375 GM in DEXTROSE 5% 100 ML IV SCH ×3 (05:26→21:43)
[2019-06-14 05:42] LABS: BUN Creatinine Ratio 12.2 (10-20); Calcium 8.5 mg/dl (8.5-10.1); Creatinine Clr Calc Pharmacy 132.5 ml/min; Magnesium 1.5 mg/dl (1.8-2.4); Potassium 4.2 mmol/L (3.5-5.1)
[2019-06-14 06:01] LABS: Basophils # (auto) 0.02 K/uL (0-0.2); Basophils % (auto) 0.1 %; Immature Granulocytes # (auto) 0.11 K/uL (0.00-0.02); Immature Granulocytes % (auto) 0.4 %; Lymphocytes # (auto) 1.02 K/uL (1.2-3.4); Lymphocytes % (auto) 3.7 %; Monocytes # (auto) 1.02 K/uL (0.11-0.59); Monocytes % (auto) 3.7 %; Neutrophils # (auto) 25.09 K/uL (1.4-6.5); Neutrophils % (auto) 92.1 %
[2019-06-14 07:02] LABS: Amphetamines+Metham, Urine Neg (Neg); Barbiturates, Urine Neg (Neg); Benzodiazepine, Urine Neg (Neg); Cocaine, Urine Neg (Neg); MDMA (Ecstacy), Urine Neg (Neg); Methadone, Urine Neg (Neg); Opiate, Urine Pos (Neg); Phencyclidine, Urine Neg (Neg)
--- NOTE | 2019-06-14 07:12 | CT Scan Report ---
ABDOMEN AND PELVIS CT WITH IV CONTRAST CT DOSE: 439.33 mGy.cm HISTORY: low abd pain, n/v, elevated wbc TECHNIQUE: Multiaxial CT images of the abdomen and pelvis were performed following the use of intrave nous contrast. A dose lowering technique was utilized adhering to the principles of ALARA. COMPARISON STUDY: Abdomen and pelvis CT 05/30/2017. FINDINGS: The lung bases are clear. The liver, spleen, gallbladder, pancreas, kidneys, and adrenal gl ands are within normal limits. Small hiatus hernia. Mildly dilated colon containing a large amount of stool. Suspect mild colonic wall thickening given the degree of distention with minimal pericolonic fat stranding at the descending colon. Findings favor a mild colitis. Normal appendix. No dilated loo ps of small bowel to suggest an obstruction. The pelvic organs are unremarkable. No suspicious lytic or blastic osseous lesions. IMPRESSION: Mildly dilated colon containing a large amount of stool. Suspect mild colonic wall thickening given t he degree of distention with minimal pericolonic fat stranding at the descending colon. Findings favo r a mild colitis. In addition, there is well-formed stool at the distal colon/rectum raising the poss ibility of fecal impaction. Electronically signed by: Evelio Ribeiro M.D. 06/14/2019 7:11 AM
[2019-06-14] MEDS: MAGNESIUM SULFATE / D5W 1 GM/100 ML BAG IV SCH ×4 (08:22→20:07)
[2019-06-14] MEDS: DULOXETINE HCL 20 MG CAP PO SCH (08:22)
[2019-06-14] MEDS ORDERED: AMLODIPINE BESYLATE 5 MG TAB PO SCH (09:45)
[2019-06-14] MEDS: ONDANSETRON INJ 2 MG/ML 2 ML VIAL IV PRN ×2 (15:11→23:20)
[2019-06-14] MEDS ORDERED: AMLODIPINE BESYLATE 5 MG TAB PO ONE (15:13)
--- NOTE | 2019-06-14 15:17 | Hospitalist Progress Note ---
Date of Service June 14, 2019 Assessment & Plan (1) Abdominal pain: -patient presented to hospital after sudden onset of abdominal pain (2) Colitis: -admission CT scan: Mildly dilated colon containing a large amount of stool. Suspect mild colonic wall thickening given the degree of distention with minimal pericolonic fat stranding at the descending colon. Findings favor a mild colitis -positive stool fecal occult blood -blood counts generally normal to date, trend CBC -C.difficile stool negative, stool cultures pending -will place gastrointestinal consult (3) Leukocytosis: -admission creatinine is 27 thousand -patient was started on broad spectrum antibiotics Zosyn until blood cultures return, continue Zosyn (4) Hypertension: -started on amlodipine and will continue as 10 mg daily -will add scheduled oral hydralazine for now history of chronic back pain -prn analgesics history of posttraumatic stress disorder -continue home dose duloxetine Subjective Patient reports abdominal symptoms from initial ED presentation feeling better. no vomiting. has been afebrile. no dizziness. no nausea. patient noted blood in stool and FOBT is positive. patient denies history of hypertension. discussed with patient that hie admission CT scan of mild colitis. no shortness of breath. on room air. no chest pain. Physical Exam Constitutional: comfortable Eyes: PERRL, conjunctivae normal, anicteric sclerae EOM intact bilaterally ENMT: external ear and nose normal, oropharynx normal Neck: normal visual inspection Respiratory: normal respiratory effort, lungs clear to auscultation Cardiovascular: RRR, no murmur, no edema Gastrointestinal (Abdomen): normal bowel sounds, soft, nontender, no hepatosplenomegaly Musculoskeletal: Head/Neck/Chest: normocephalic and head atraumatic Neurologic: PERRL, EOMI, accommodation nl, no face palsy, no dysarthria Psychiatric: A+Ox3, euthymic affect Results & Data Vital Signs (Past 12 Hours) Vital Signs Temp Pulse Pulse Resp BP BP Pulse Ox 06/14/19 11:00 36.6 C 80 18 174/99 H 169/100 H 98 06/14/19 08:48 65 06/14/19 07:52 36.8 C 88 16 168/91 H 99 06/14/19 04:37 69 06/14/19 04:19 36.6 C 93 H 18 166/101 H 97 (1) Abdominal pain Abdominal location: lower abdomen, unspecified Qualified Code(s): R10.30 - Lower abdominal pain, unspecified (2) Leukocytosis Leukocytosis type: unspecified Qualified Code(s): D72.829 - Elevated white blood cell count, unspecified
[2019-06-14] MEDS: HydrALAZINE 10 MG TAB PO SCH ×2 (15:32→23:11)
[2019-06-14 15:43] LABS: Hematocrit (blood only) 48.4 % (42-52); Hemoglobin 17.3 g/dL (14.0-18.0); Mean Corpuscular Hemoglobin 33.7 pg (25-34); Mean Corpuscular Volume 94.3 fL (80-100); Mean Platelet Volume 10.8 fL (7.4-10.4); Platelet Count 182 K/uL (130-400); RDW Coefficient of Variation 13.3 % (11.5-14.5); Red Blood Count 5.13 M/uL (4.7-6.1); White Blood Count 27.12 K/uL (4.8-10.8)
[2019-06-14 15:47] LABS: Mean Corpuscular Hgb Conc 35.7 g/dL (32-36)
[2019-06-14 16:28] LABS: Basophils # (auto) 0.02 K/uL (0-0.2); Basophils % (auto) 0.1 %; Eosinophils # (auto) 0.01 K/uL (0-0.5); Immature Granulocytes # (auto) 0.11 K/uL (0.00-0.02); Immature Granulocytes % (auto) 0.4 %; Lymphocytes % (auto) 6.6 %; Monocytes # (auto) 1.54 K/uL (0.11-0.59); Monocytes % (auto) 5.7 %; Neutrophils # (auto) 23.64 K/uL (1.4-6.5); Neutrophils % (auto) 87.2 %
[2019-06-14] MEDS ORDERED: MAGNESIUM OXIDE 400 MG TAB PO STA (18:03)
[2019-06-14] MEDS ORDERED: cloNIDine HCL 0.1 MG TAB PO ONE (21:00)
[2019-06-14] MEDS ORDERED: LORazepam 0.5 MG TAB PO STA (23:37)
[2019-06-15] MEDS: HYDROmorphone INJ 0.5 MG/0.5 ML SYR IV PRN ×3 (05:55→12:22)
[2019-06-15 05:56] LABS: Hemoglobin 18.6 g/dL (14.0-18.0); Mean Corpuscular Hemoglobin 34.1 pg (25-34); Mean Corpuscular Hgb Conc 35.8 g/dL (32-36); Mean Corpuscular Volume 95.2 fL (80-100); Platelet Count 167 K/uL (130-400); RDW Coefficient of Variation 13.6 % (11.5-14.5); RDW Standard Deviation 47.2 fL (36.4-46.3); Red Blood Count 5.46 M/uL (4.7-6.1); White Blood Count 26.95 K/uL (4.8-10.8)
[2019-06-15] MEDS: PIPERACILLIN/TAZOBACTAM 3.375 GM in DEXTROSE 5% 100 ML IV SCH (05:56)
[2019-06-15 06:26] LABS: Basophils # (auto) 0.01 K/uL (0-0.2); Eosinophils # (auto) 0.06 K/uL (0-0.5); Eosinophils % (auto) 0.2 %; Immature Granulocytes # (auto) 0.13 K/uL (0.00-0.02); Immature Granulocytes % (auto) 0.5 %; Lymphocytes # (auto) 1.53 K/uL (1.2-3.4); Lymphocytes % (auto) 5.7 %; Monocytes # (auto) 1.84 K/uL (0.11-0.59); Monocytes % (auto) 6.8 %; Neutrophils # (auto) 23.38 K/uL (1.4-6.5); Neutrophils % (auto) 86.8 %
[2019-06-15 06:39] LABS: Albumin Level 3.6 gm/dl (3.4-5.0); BUN Creatinine Ratio 4.9 (10-20); Calcium 8.7 mg/dl (8.5-10.1); Creatinine Clr Calc Pharmacy 125.9 ml/min; Est GFR (African American) 135.1; Est GFR (Non-African American) 116.6
[2019-06-15 06:49] LABS: Albumin Globulin Ratio 0.9 (0.9-2); Bilirubin,Total 1.1 mg/dl (0.2-1); Globulin 3.8 gm/dl (2.5-4.0); Phosphorus 2.6 mg/dl (2.5-4.9); Thyroid Stimulating Hormone 0.39 uIu/ml (0.300-4.500); Total Protein 7.4 gm/dl (6.4-8.2)
[2019-06-15] MEDS: HydrALAZINE 10 MG TAB PO SCH (08:56)
[2019-06-15] MEDS: DULOXETINE HCL 20 MG CAP PO SCH (08:57)
[2019-06-15] MEDS: AMLODIPINE BESYLATE 5 MG TAB PO SCH (08:57)
[2019-06-15] MEDS: MAGNESIUM OXIDE 400 MG TAB PO SCH ×2 (08:57→20:59)
[2019-06-15] MEDS: ONDANSETRON INJ 2 MG/ML 2 ML VIAL IV PRN (09:12)
--- NOTE | 2019-06-15 09:44 | Gastrointestinal Consultation ---
Date of Consultation June 15, 2019 Assessment & Plan (1) Abdominal pain: (2) Colitis: (3) Bloody stool: Pt is a 33 y/o male who is currently admitted w leukocytosis, abd pain, bloody stools. Cdiff negative, stool cx pending. CT abd/pelvis showed mildly dilated colon w large amt of stools and possible fecal impaction on distal colon/rectum area. There's also suggestion of mild colitis on CT scan.DDX: Infectious, inflammatory colitis, IBD, hemorrhoidal bleeding. - Continue Zosyn IV - F/U Stool cx and blood cx - Check ESR, CRP - OK to start CL diet - Consider colonoscopy eval to r/o IBD should above tests are unrevealing and if GI symptoms persist Supervising Physician Co-Signing Physician Notes I have seen and examined the patient and discussed the management with ROXANA Erickson. 33 yo male admitted with abdominal pain and looser stools, imaging w colitis. On abx - zosyn. PE - alert and oriented, Skin- no rashes, Neuro- cn's 2-12 intact, abd - soft nt nd +bs Labs/imaging reviewed Agree with further plan of care as per Tracey's plan of care. History of Present Illness Reason for Consultation: Colitis, FOBT positive Requesting Physician: Dr. Serge López Attending Physician: Dr. Divina Thomas History of Present Illness Pt is a 33 y/o male w PMHx of chronic back pain, tobacco and marijuana abuses who is currently seen for colitis and FOBT positive. He started having lower abd pressure pain 2 mornings ago, feels like constipation but cannot defecate Pain got severe enough to bring him to ED. He had BM in the ED and reports it as being full or bright red blood. He felt a bit feverish yesterday. Denies any n/v. His blood stools continued on up to early this AM. WBC noted to be up at 27K, he's been started on Zosyn IV. H/H stable. Blood cx pending. CT abd/pelvis w contrast showed "mildly dilated colon containing a large amount of stool. Suspect mild colonic wall thickening given the degree of distention with minimal pericolonic fat stranding at the descending colon. Findings favor a mild colitis. In addition, there is well-formed stool at the distal colon/rectum raising the possibility of fecal impaction". Cdiff negative. Stool cx pending. He denies any sick contact, travels, undercooked/raw foods, recent antibx. Denies family hx of IBD or colorectal ca. Allergies Allergy/AdvReac Type Severity Reaction Status Date / Time bacitracin Allergy Unknown HIVES Verified 06/13/19 23:45 neomycin Allergy Unknown HIVES Verified 06/13/19 23:45 polymyxin B Allergy Unknown HIVES Verified 06/13/19 23:45 Home Medications Home Medications Medication Instructions Recorded Confirmed Type cyclobenzaprine 10 mg PO TID PRN #15 tab 03/14/19 06/13/19 Rx hydrocodone-acetaminophen [[place]] 1 tab PO Q6H PRN #15 tab 03/14/19 06/13/19 Rx duloxetine 40 mg PO DAILY 06/13/19 06/13/19 History Patient History Medical History Hypertension (Chronic) Kidney stones (Chronic) No pertinent past medical history Family History Other Cancer Hypertension Social History Preferred Language: Yakut Communication Ability: Effective 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 Beliefs That Will Affect Care: None Current Living Situation: Alone Other Information That Helps Us Care for You: No Feels Safe at Home: Yes Safety Concerns: Feels Safe At This Time Smoking Status: Current every day smoker Tobacco Type: cigarettes ; Cigarettes Per Day: 1 PPD ; Do You Dip or Chew Tobacco: No ; Second Hand Exposure: Yes ; Tobacco Cessation Education Requested by Patient: No Hx Alcohol Use: Yes Alcohol type: beer and hard liquor Hx Substance Use: No Review of Systems Review of Systems: All systems reviewed & are unremarkable except as noted in HPI & below Physical Exam Constitutional: WD/WN, vitals as above well groomed, cooperative and comfortable Eyes: PERRL, conjunctivae normal, anicteric sclerae ENMT: external ear and nose normal, oropharynx normal Respiratory: normal respiratory effort, lungs clear to auscultation Cardiovascular: RRR, no murmur, no edema Gastrointestinal (Abdomen): Inspection/Auscultation: + hypoactive bowel sounds Percussion/Palpation: + abdomen tender (diffuse) and abdomen soft Skin: no rashes, warm and dry no jaundice Neurologic: Motor/Sensory: no asterixis Psychiatric: A+Ox3, euthymic affect Lymphatic: no lymphedema Results & Data Vital Signs (Past 12 Hours) Vital Signs Temp Pulse Resp BP Pulse Ox 06/15/19 07:32 36.9 C 105 H 20 157/108 H 96 06/15/19 04:28 37 C 115 H 18 154/105 H 95 06/14/19 23:15 36.8 C 84 18 167/93 H 96 06/14/19 23:09 94 H 162/105 H (1) Abdominal pain Abdominal location: lower abdomen, unspecified Qualified Code(s): R10.30 - Lower abdominal pain, unspecified
--- NOTE | 2019-06-15 13:22 | Hospitalist Progress Note ---
Date of Service June 15, 2019 Assessment & Plan (1) Abdominal pain: -patient presented to hospital after sudden onset of abdominal pain (2) Colitis: -admission CT scan: Mildly dilated colon containing a large amount of stool. Suspect mild colonic wall thickening given the degree of distention with minimal pericolonic fat stranding at the descending colon. Findings favor a mild colitis -positive stool fecal occult blood -Hemoglobin is generally stable and gastroenterology service does not have current plans for colonoscopy -C.difficile stool negative, stool cultures no growth to date (3) Leukocytosis: -admission creatinine is 27 thousand -patient was started on broad spectrum antibiotics Zosyn on 06/14/19 -06/15/19 CRP is elevated but this is nonspecific -06/15/19: discussed with patient about transition to oral antibiotic and continued monitoring in the hospital as upgrade from observation to full admission given continued elevated white blood cell count and abdominal pain. Patient agrees to the plan (4) Hypertension: -was started on amlodipine on 06/14/19 and will continue as 10 mg daily -switched hydralazine which was started on 06/14/19 to losartan 25 mg daily starting on 06/15/19 -as of 06/15/19, blood pressure has improved but patient benefits from further optimization during hospital stay history of chronic back pain -back pain appears controlled -try to minimize narcotics history of posttraumatic stress disorder -continue home dose duloxetine Subjective Lower abdominal tenderness to palpation. patient reports bowel movements. no vomiting. no dizziness. no chest pain. no shortness of breath. on room air no fevers while on zosyn. no positive blood cultures to date yet. discussed with patient about transition to oral antibiotic and continued monitoring in the hospital as upgrade from observation to full admission given continued elevated white blood cell count and abdominal pain. Patient agrees to the plan Physical Exam Constitutional: comfortable Eyes: PERRL, conjunctivae normal, anicteric sclerae EOM intact bilaterally ENMT: external ear and nose normal, oropharynx normal Neck: normal visual inspection Respiratory: normal respiratory effort, lungs clear to auscultation Cardiovascular: RRR, no murmur, no edema Gastrointestinal (Abdomen): Inspection/Auscultation: abdomen normal to inspection and normal bowel sounds Percussion/Palpation: + abdomen tender (lower abdominal tenderness) Musculoskeletal: Head/Neck/Chest: normocephalic and head atraumatic Neurologic: PERRL, EOMI, accommodation nl, no face palsy, no dysarthria Psychiatric: A+Ox3, euthymic affect Results & Data Vital Signs (Past 12 Hours) Vital Signs Temp Pulse Pulse Resp BP Pulse Ox 06/15/19 12:21 109 H 151/105 H 95 06/15/19 11:48 37.0 C 95 H 20 150/110 H 96 06/15/19 08:00 76 06/15/19 07:32 36.9 C 105 H 20 157/108 H 96 06/15/19 04:28 37 C 115 H 18 154/105 H 95 (1) Abdominal pain Abdominal location: lower abdomen, unspecified Qualified Code(s): R10.30 - Lower abdominal pain, unspecified (2) Leukocytosis Leukocytosis type: unspecified Qualified Code(s): D72.829 - Elevated white blood cell count, unspecified
[2019-06-15] MEDS: metroNIDAZOLE 500 MG TAB PO SCH ×2 (13:24→20:59)
[2019-06-15] MEDS: LOSARTAN POTASSIUM 25 MG TAB PO SCH (13:24)
[2019-06-15] MEDS: CIPROFLOXACIN 500 MG TAB PO SCH ×2 (13:24→20:58)
[2019-06-15] MEDS ORDERED: GABAPENTIN 600MG ALCOHOL WITHDRAWAL LOAD PO SCH (18:15)
[2019-06-15] MEDS ORDERED: GABAPENTIN 600 MG TAB PO ONE (18:30)
[2019-06-15] MEDS ORDERED: IBUPROFEN 200 MG/10 ML UDC PO ONE (18:30)
[2019-06-15] MEDS ORDERED: SODIUM CHLORIDE 0.9% 1000ML 500 ML IV ONE (19:00)
[2019-06-15] MEDS ORDERED: SODIUM CHLORIDE 0.9% 1000ML 1,000 ML IV ONE (20:25)
[2019-06-15 20:55] LABS: Hematocrit (blood only) 51.2 % (42-52); Hemoglobin 18.9 g/dL (14.0-18.0)
[2019-06-15 21:08] LABS: BUN Creatinine Ratio 6.9 (10-20); Calcium 9.1 mg/dl (8.5-10.1); Creatinine Clr Calc Pharmacy 124.3 ml/min; Est GFR (African American) 134.4; Magnesium 2.1 mg/dl (1.8-2.4); Potassium 3.9 mmol/L (3.5-5.1)
[2019-06-15] MEDS ORDERED: KETOROLAC TROMETHAMINE 15 MG/ML VIAL IV ONE (21:30)
[2019-06-15 21:31] LABS: Albumin Level 3.6 gm/dl (3.4-5.0)
[2019-06-15 21:35] LABS: Bilirubin Direct 0.2 mg/dl (0-0.2); Total Protein 7.6 gm/dl (6.4-8.2)
[2019-06-15] MEDS ORDERED: IOVERSOL 100ml IV PRN (21:43)
--- NOTE | 2019-06-15 22:30 | CT Scan Report ---
CT SCAN OF THE ABDOMEN AND PELVIS WITH IV CONTRAST CLINICAL HISTORY: Generalized abdominal pain. COMPARISON STUDY: Abdominal CT dated 06/13/2019. TECHNIQUE: Following the IV administration of 90 cc of Optiray 320, CT scan of the abdomen and pelvi s is performed from the lung bases to the proximal femora. Images are reviewed in the axial, sagittal , and coronal planes. IV contrast was administered without complication. A dose lowering technique wa s utilized adhering to the principles of ALARA. CT DOSE: 403.09 mGy.cm FINDINGS: Lung bases: The heart is normal in size and without pericardial effusion. The lung bases are clear. Liver: The contrast-enhanced liver is normal in size, contour, and attenuation. There is no intrahepa tic biliary ductal dilatation. The hepatic veins and portal veins are patent. Gallbladder: Unremarkable. Spleen: Normal in size and attenuation. Pancreas: Unremarkable. Adrenal glands: Unremarkable. Kidneys: The contrast enhanced kidneys are normal in size and without hydronephrosis. The kidneys enh ance symmetrically. Abdominal vasculature: The abdominal aorta is normal in course and caliber. Bowel: There is no bowel obstruction. Liquid stool is noted throughout the colon. There is significan t colonic wall thickening with pericolonic inflammation and trace fluid seen involving the left colon . This is greatest from the distal transverse colon to the sigmoid, and is consistent with a nonspeci fic colitis. The appendix is well-visualized and normal. Peritoneum: There is no intraperitoneal free air. There is trace free fluid in the pelvis. There is a small fat-containing umbilical hernia. Lymphadenopathy: None. Pelvic viscera: The bladder, prostate, and seminal vesicles are normal as imaged. Skeletal structures: No lytic or blastic lesions are seen. IMPRESSION: 1. Again seen is a nonspecific colitis involving predominantly the left colon as above. This is likel y on an infectious/inflammatory basis in this age group, and this appears worsened from the 9 examination. 2. There is a small volume of free fluid in the pelvis, likely reactive. 3. No intraperitoneal free air is seen. Electronically signed by: Med Jackson M.D. 06/15/2019 10:28 PM
[2019-06-15] MEDS ORDERED: KETOROLAC TROMETHAMINE 15 MG/ML VIAL IV PRN (22:50)
--- NOTE | 2019-06-15 22:56 | Hospitalist Progress Note ---
Date of Service June 15, 2019 Subjective Patient complaining of worsening abdominal pain, 2 bloody BMs today. Persistent tachycardia. CT abdomen pelvis: Worsening left-sided colitis AP Worsening left-sided colitis IVF Change oral Cipro Flagyl to IV for now. Will relay to AM provider. Results & Data Vital Signs (Past 12 Hours) Vital Signs Temp Pulse Pulse Resp BP Pulse Ox 06/15/19 22:23 104 H 06/15/19 19:31 36.5 C 113 H 18 145/99 H 98 06/15/19 15:54 36.9 C 119 H 19 151/107 H 96 06/15/19 13:22 146/100 H 06/15/19 12:21 109 H 151/105 H 95 06/15/19 11:48 37.0 C 95 H 20 150/110 H 96
[2019-06-15] MEDS ORDERED: LACTATED RINGER'S 1,000 ML IV ONE (23:00)
[2019-06-16] MEDS: GABAPENTIN 100 MG CAP PO SCH ×2 (00:22→05:50)
[2019-06-16] MEDS: OXYCODONE HCL IR 5 MG TAB (IMMEDIATE RELEASE) PO PRN ×2 (00:43→11:55)
[2019-06-16] MEDS ORDERED: NSS + 20MEQ KCL 20 MEQ/1,000 ML BAG IV ONE (01:00)
[2019-06-16] MEDS ORDERED: PROMETHAZINE HCL 12.5 MG in SODIUM CHLORIDE 0.9% 50 ML IV PRN ×2 (06:27→21:11)
[2019-06-16 07:49] LABS: Hematocrit (blood only) 48.7 % (42-52); Hemoglobin 16.9 g/dL (14.0-18.0); Mean Corpuscular Hemoglobin 33.5 pg (25-34); Mean Corpuscular Volume 96.4 fL (80-100); Mean Platelet Volume 10.7 fL (7.4-10.4); Platelet Count 151 K/uL (130-400); RDW Coefficient of Variation 13.7 % (11.5-14.5); RDW Standard Deviation 48.5 fL (36.4-46.3); Red Blood Count 5.05 M/uL (4.7-6.1); White Blood Count 28.94 K/uL (4.8-10.8)
[2019-06-16 07:53] LABS: Mean Corpuscular Hgb Conc 34.7 g/dL (32-36)
[2019-06-16 08:06] LABS: Albumin Level 3.1 gm/dl (3.4-5.0); BUN Creatinine Ratio 8.8 (10-20); Calcium 8.6 mg/dl (8.5-10.1); Creatinine Clr Calc Pharmacy 130.8 ml/min; Est GFR (African American) 137.2; Est GFR (Non-African American) 118.4; Magnesium 1.9 mg/dl (1.8-2.4); Potassium 4.4 mmol/L (3.5-5.1)
[2019-06-16 08:08] LABS: Basophils # (auto) 0.04 K/uL (0-0.2); Basophils % (auto) 0.1 %; Eosinophils # (auto) 0.06 K/uL (0-0.5); Eosinophils % (auto) 0.2 %; Immature Granulocytes # (auto) 0.17 K/uL (0.00-0.02); Immature Granulocytes % (auto) 0.6 %; Lymphocytes # (auto) 1.68 K/uL (1.2-3.4); Lymphocytes % (auto) 5.8 %; Monocytes # (auto) 2.15 K/uL (0.11-0.59); Monocytes % (auto) 7.4 %; Neutrophils # (auto) 24.84 K/uL (1.4-6.5); Neutrophils % (auto) 85.9 %
[2019-06-16 08:09] LABS: Albumin Globulin Ratio 0.8 (0.9-2); Bilirubin,Total 0.8 mg/dl (0.2-1); Globulin 3.7 gm/dl (2.5-4.0); Total Protein 6.8 gm/dl (6.4-8.2)
[2019-06-16] MEDS: metroNIDAZOLE 500 MG/100 ML BAG IV SCH ×2 (08:10→17:27)
[2019-06-16] MEDS: CIPROFLOXACIN 400 MG/200 ML BAG IV SCH ×2 (08:11→20:57)
[2019-06-16] MEDS: MAGNESIUM OXIDE 400 MG TAB PO SCH ×2 (08:13→20:57)
[2019-06-16] MEDS: LOSARTAN POTASSIUM 25 MG TAB PO SCH (08:13)
[2019-06-16] MEDS: DULOXETINE HCL 20 MG CAP PO SCH (08:14)
[2019-06-16] MEDS: AMLODIPINE BESYLATE 5 MG TAB PO SCH (08:14)
--- NOTE | 2019-06-16 08:54 | Gastroenterology Progress Note ---
Date of Service June 16, 2019 Assessment & Plan (1) Bloody stool: (2) Abdominal pain: (3) Leukocytosis: (4) Colitis: Pt is a 33 y/o male who is currently admitted w leukocytosis, abd pain, bloody stools. Cdiff negative, stool cx, blood cx negative so far. CT abd/pelvis showed mildly dilated colon w large amt of stools and possible fecal impaction on distal colon/rectum area w non specific colitis, L sided predominantly. ESR/CRP elevated. - Dicyclomine 10mg TID - Continue IV antibx - F/U Stool cx - Suspect IBD: will plan to continue CL diet today, NPO after midnight for colonoscopy 06/17/19. Bowel prep ordered Supervising Physician Co-Signing Physician Notes I have personally seen and examined the patient with ROXANA Erickson. Her note reflects my examination and findings. I agree with her impression and plan. Unclear if symptoms and CT are from infection or IBD. Colonoscopy tomorrow. Edilson Victor M.D. Subjective Pt reports BMs less bloody but persistent abd discomfort. Mild nausea no vomiting. CT abd/pelvis repeated for abd pain yesterday: non specific, predominantly L side colitis. No intraperitoneal free air Labs reviewed: WBC persistently up at 28K, H/H stable. BUN/Cr normal. ESR/CRP elevated. Stool cx and Cdiff negative so far Review of Systems Review of Systems: All systems reviewed & are unremarkable except as noted in HPI & below Physical Exam Constitutional: WD/WN, vitals as above well groomed, cooperative and comfortable Eyes: PERRL, conjunctivae normal, anicteric sclerae ENMT: external ear and nose normal, oropharynx normal Respiratory: normal respiratory effort, lungs clear to auscultation Cardiovascular: RRR, no murmur, no edema Gastrointestinal (Abdomen): Inspection/Auscultation: + hypoactive bowel sounds Percussion/Palpation: + abdomen tender (diffuse) and abdomen soft Skin: no rashes, warm and dry no jaundice Neurologic: Motor/Sensory: no asterixis Psychiatric: A+Ox3, euthymic affect Lymphatic: no lymphedema Results & Data Vital Signs (Past 12 Hours) Vital Signs Temp Pulse Pulse Resp BP BP Pulse Ox 06/16/19 07:41 129 H 06/16/19 07:00 37.2 C 112 H 17 138/86 95 06/16/19 04:00 36.8 C 96 H 20 125/84 96 06/16/19 00:30 83 06/16/19 00:00 37.0 C 98 H 20 146/79 H 93 06/15/19 22:23 104 H (1) Leukocytosis Leukocytosis type: unspecified Qualified Code(s): D72.829 - Elevated white blood cell count, unspecified (2) Abdominal pain Abdominal location: lower abdomen, unspecified Qualified Code(s): R10.30 - Lower abdominal pain, unspecified
[2019-06-16] MEDS: DICYCLOMINE HCL 10 MG CAP PO SCH ×3 (09:49→20:57)
--- NOTE | 2019-06-16 12:48 | Hospitalist Progress Note ---
Date of Service June 16, 2019 Assessment & Plan (1) Abdominal pain: -patient presented to hospital after sudden onset of abdominal pain -workup of colitis as stated below; GI also started Dicyclomine 10mg TID for abdominal pain (2) Colitis: -admission CT scan: Mildly dilated colon containing a large amount of stool. Suspect mild colonic wall thickening given the degree of distention with minimal pericolonic fat stranding at the descending colon. Findings favor a mild colitis -positive stool fecal occult blood -Hemoglobin is generally stable and gastroenterology service does not have current plans for colonoscopy -C.difficile stool negative, stool cultures no growth to date -06/16/19: Patient had more blood in diarrhea overnight. However, blood counts remain stable and patient is not anemic. Patient reports that he still has lower abdominal pain. Gastroenterology saw the patient and plans for colonoscopy on 06/17/19 (3) Leukocytosis: -admission creatinine is 27 thousand -patient was started on broad spectrum antibiotics Zosyn on 06/14/19 -06/15/19 CRP is elevated but this is nonspecific -06/15/19: discussed with patient about transition to oral antibiotic and continued monitoring in the hospital as upgrade from observation to full admission given continued elevated white blood cell count and abdominal pain. Patient agrees to the plan 06/16/19: night time doctor adjusted oral ciprofloxacin and oral metronidazole to IV formulations, continue with IV ciprofloxacin, IVmetronidzaole (4) Hypertension: -was started on amlodipine on 06/14/19 and will continue as 10 mg daily -switched hydralazine which was started on 06/14/19 to losartan 25 mg daily starting on 06/15/19 -as of 06/15/19, blood pressure has improved but patient benefits from further optimization during hospital stay -continue amlodipine and losartan history of chronic back pain -back pain appears controlled -try to minimize narcotics history of posttraumatic stress disorder -continue home dose duloxetine Subjective Patient had more blood in diarrhea overnight. However, blood counts remain stable and patient is not anemic. Patient reports that he still has lower abdominal pain. Gastroenterology saw the patient and plans for colonoscopy on 06/17/19 breathing on room air. no chest pain. no shortness of breath. patient is ambu latory. no dizziness. no lighth Physical Exam Constitutional: comfortable Eyes: PERRL, conjunctivae normal, anicteric sclerae EOM intact bilaterally ENMT: external ear and nose normal, oropharynx normal Neck: normal visual inspection Respiratory: normal respiratory effort, lungs clear to auscultation Cardiovascular: RRR, no murmur, no edema Gastrointestinal (Abdomen): normal bowel sounds, soft, nontender, no hepatosplenomegaly Inspection/Auscultation: abdomen normal to inspection and normal bowel sounds Percussion/Palpation: + abdomen tender (lower abdominal tenderness) Musculoskeletal: Head/Neck/Chest: normocephalic and head atraumatic Neurologic: PERRL, EOMI, accommodation nl, no face palsy, no dysarthria Psychiatric: A+Ox3, euthymic affect Results & Data Vital Signs (Past 12 Hours) Vital Signs Temp Pulse Pulse Resp BP Pulse Ox 06/16/19 11:00 37.0 C 118 H 20 119/82 95 06/16/19 07:41 129 H 06/16/19 07:00 37.2 C 112 H 17 138/86 95 06/16/19 04:00 36.8 C 96 H 20 125/84 96 (1) Abdominal pain Abdominal location: lower abdomen, unspecified Qualified Code(s): R10.30 - Lower abdominal pain, unspecified (2) Leukocytosis Leukocytosis type: unspecified Qualified Code(s): D72.829 - Elevated white blood cell count, unspecified
[2019-06-16] MEDS ORDERED: bisacodyL 5 MG TABEC PO ONE (17:00)
[2019-06-16] MEDS ORDERED: POLYETHYLENE (MIRALAX) 17 GM PACK PO ONE ×2 (17:00→21:00)
[2019-06-16] MEDS ORDERED: GABAPENTIN 600 MG TAB PO SCH (18:00)
[2019-06-16] MEDS ORDERED: KETOROLAC TROMETHAMINE 15 MG/ML VIAL IV STA (21:10)
[2019-06-16] MEDS ORDERED: MoRPHine SULFATE 4 MG/ML 1 ML CARP\\VIAL IV PRN (21:12)
[2019-06-16] MEDS ORDERED: PROMETHAZINE HCL 12.5 MG in SODIUM CHLORIDE 0.9% 50 ML IV ONE (21:30)
[2019-06-16] MEDS: LACTATED RINGER'S 1,000 ML IV SCH (22:14)
[2019-06-17] MEDS: metroNIDAZOLE 500 MG/100 ML BAG IV SCH ×3 (01:40→16:28)
[2019-06-17] MEDS: LACTATED RINGER'S 1,000 ML IV SCH ×2 (05:07→17:56)
[2019-06-17 07:46] LABS: Basophils # (auto) 0.04 K/uL (0-0.2); Basophils % (auto) 0.2 %; Eosinophils # (auto) 0.27 K/uL (0-0.5); Eosinophils % (auto) 1.2 %; Hematocrit (blood only) 47.4 % (42-52); Hemoglobin 17.2 g/dL (14.0-18.0); Immature Granulocytes # (auto) 0.11 K/uL (0.00-0.02); Immature Granulocytes % (auto) 0.5 %; Lymphocytes # (auto) 2.23 K/uL (1.2-3.4); Mean Corpuscular Hemoglobin 34.1 pg (25-34); Mean Corpuscular Hgb Conc 36.3 g/dL (32-36); Mean Platelet Volume 10.5 fL (7.4-10.4); Monocytes # (auto) 1.68 K/uL (0.11-0.59); Monocytes % (auto) 7.5 %; Neutrophils # (auto) 18.04 K/uL (1.4-6.5); Neutrophils % (auto) 80.6 %; Platelet Count 171 K/uL (130-400); RDW Coefficient of Variation 13.6 % (11.5-14.5); Red Blood Count 5.04 M/uL (4.7-6.1); White Blood Count 22.37 K/uL (4.8-10.8)
[2019-06-17] MEDS: DICYCLOMINE HCL 10 MG CAP PO SCH ×3 (08:05→20:53)
[2019-06-17] MEDS: CIPROFLOXACIN 400 MG/200 ML BAG IV SCH ×2 (08:05→20:57)
[2019-06-17] MEDS: AMLODIPINE BESYLATE 5 MG TAB PO SCH (08:05)
[2019-06-17] MEDS: DULOXETINE HCL 20 MG CAP PO SCH (08:06)
[2019-06-17] MEDS: LOSARTAN POTASSIUM 25 MG TAB PO SCH (08:06)
[2019-06-17] MEDS: MAGNESIUM OXIDE 400 MG TAB PO SCH ×2 (08:06→20:53)
[2019-06-17 08:17] LABS: Codeine Urine NEGATIVE NG/ML (CUTOFF=50); Hydrocodone Urine 139 NG/ML (CUTOFF=50); Hydromor Urine 423 NG/ML (CUTOFF=50); Marijuana Quant, GCMS Urine 602 NG/ML (CUTOFF=5); Morphine Urine 2110 NG/ML (CUTOFF=50); Norhydrocodone Conf Ur 422 NG/ML (CUTOFF=50); Noroxycodone Urine NEGATIVE NG/ML (CUTOFF=50); Oxycodone Urine NEGATIVE NG/ML (CUTOFF=50); Oxymorph Urine NEGATIVE NG/ML (CUTOFF=50)
[2019-06-17 08:20] LABS: Albumin Level 2.9 gm/dl (3.4-5.0); BUN Creatinine Ratio 12.7 (10-20); Calcium 8.9 mg/dl (8.5-10.1); Creatinine Clr Calc Pharmacy 159.8 ml/min; Est GFR (Non-African American) 128.6; Magnesium 1.8 mg/dl (1.8-2.4)
[2019-06-17 08:23] LABS: Albumin Globulin Ratio 0.8 (0.9-2); Bilirubin,Total 0.6 mg/dl (0.2-1); Globulin 3.7 gm/dl (2.5-4.0); Total Protein 6.6 gm/dl (6.4-8.2)
[2019-06-17] MEDS ORDERED: LORazepam 0.5 MG TAB PO STA (08:46)
--- NOTE | 2019-06-17 10:46 | History & Physical Bridge Note ---
Date of Service June 17, 2019 History & Physical Bridge Note I have examined the patient, reviewed the History & Physical and in the interval since the performance of the History & Physical I have noted the following changes of clinical significance: no changes noted Pt completed 3/4 dose of the bowel prep. Having liquid brown BMs w/o stool particles per his report. Some abd discomfort, no blood. VS, labs reviewed. He'd been NPO for colonoscopy today Exam: - AAOx3, in NAD - CTA bilateral lungs - HRR no murmur or gallops - Abd soft, mild L sided discomfort, BS hypoactive - No edema on extremities GI will give further recs after colonoscopy completed. Supervising Physician Co-Signing Physician Notes I have personally seen and examined the patient with ROXANA Erickson. Her note reflects my exam and finding. I agree with her impression and plan. Stable for colonoscopy today. Edilson Victor M.D.
--- NOTE | 2019-06-17 11:20 | Anesthesiology Consultation ---
Date of Service June 17, 2019 Assessment & Plan Chart Review Chart Review: Acceptable Risk for Surgery and Patient NOT seen in Pre Admission Testing Consults Requested none ASA ASA2 Proposed Anesthesia Anesthesia Type: MAC Risk / Benefits Reviewed With: PT / POA / Parent / Guardian, Accepts Plan and Informed Consent Obtained History Surgery Operation Date: 06/17/19 08:30 Proposed Procedures p Colonoscopy Dr Valente Victor Height/Weight Height: 5 ft 8 in Weight: 77.5 kg Allergies Allergy/AdvReac Type Severity Reaction Status Date / Time bacitracin Allergy Unknown HIVES Verified 06/17/19 11:05 neomycin Allergy Unknown HIVES Verified 06/17/19 11:05 polymyxin B Allergy Unknown HIVES Verified 06/17/19 11:05 Medications Home Medications Medication Instructions Recorded Confirmed Last Taken cyclobenzaprine 10 mg PO TID PRN #15 tab 03/14/19 06/13/19 06/13/19 hydrocodone-acetaminophen [[place]] 1 tab PO Q6H PRN #15 tab 03/14/19 06/13/19 06/13/19 duloxetine 40 mg PO DAILY 06/13/19 06/13/19 06/13/19 Active Medications Generic Name Dose Route Start Last Admin Trade Name Freq PRN Reason Stop Dose Admin Acetaminophen 325 mg 06/14/19 09:39 06/15/19 17:36 Tylenol PO 07/14/19 02:39 325 mg Q6H PRN Administration Pain or Fever Amlodipine Besylate 10 mg 06/15/19 09:00 06/17/19 08:05 Norvasc PO 07/15/19 08:59 10 mg QAM CLARISA Administration Cyclobenzaprine HCl 10 mg 06/14/19 02:40 06/14/19 21:39 Flexeril PO 07/14/19 02:39 10 mg TID PRN Administration muscle spasm Dicyclomine HCl 10 mg 06/16/19 09:00 06/17/19 08:05 Bentyl PO 07/16/19 08:59 10 mg TID CLARISA Administration Duloxetine HCl 40 mg 06/14/19 09:00 06/17/19 08:06 Cymbalta PO 07/14/19 08:59 40 mg DAILY CLARISA Administration Metronidazole 500 mg in 100 mls @ 100 mls/hr 06/16/19 09:00 06/17/19 09:22 Flagyl IV 06/26/19 08:59 Infused Q8H CLARISA Infusion Protocol Ciprofloxacin 400 mg in 200 mls @ 100 mls/hr 06/16/19 09:00 06/17/19 10:07 Cipro IV 06/26/19 08:59 Infused BID CLARISA Infusion Protocol Lactated Ringer's 1,000 mls @ 125 mls/hr 06/16/19 21:30 06/17/19 10:51 Lr IV 07/16/19 21:29 0 mls/hr .Q8H CLARISA Infusion Ioversol 90 ml 06/15/19 21:43 06/15/19 21:45 Optiray 320 100ml IV 06/19/19 21:42 90 ml ONCE PRN Administration Interaction Checking Losartan Potassium 25 mg 06/15/19 12:45 06/17/19 08:06 Cozaar PO 07/15/19 12:44 25 mg QAM CLARISA Administration Magnesium Oxide 400 mg 06/15/19 09:00 06/17/19 08:06 Mag-Ox PO 07/15/19 08:59 400 mg BID CLARISA Administration Oxycodone HCl 5 mg 06/15/19 18:50 06/16/19 11:55 Roxicodone Immediate Rel PO 06/29/19 18:49 5 mg Q8H PRN Administration moderate to severe pain NPO Date Last Intake of Fluids: 06/16/19 Time Last Intake of Fluids: 23:30 Last Intake of Fluids Comment: sip of water with meds Date Last Intake of Solids: 06/13/19 Time Last Intake of Solids: 12:00 Past Medical History Medical History Hypertension (Chronic) Kidney stones (Chronic) No pertinent past medical history Exercise / Class Metabolic Activity II 4-5 Yardwork/Stairs/Walk up hill Past Family History Family History Other Cancer Hypertension Past Anesthesia History No Hx of Anesthesia Complications and No Family Hx of Anesthesia Complications History of PONV No Hx of PONV and No Hx of Motion Sickness Social History Smoking Status: Current every day smoker tobacco type: cigarettes Smoking cigarettes per day: 1 PPD Do You Dip or Chew Tobacco: No Hx Alcohol Use: Yes Alcohol type: beer and hard liquor alcohol intake frequency: a few times a week Hx Substance Use: Yes substance use type: marijuana Physical Exam Vital Signs Last Vital Signs Temp 36.8 C 06/17/19 11:12 Pulse 100 H 06/17/19 11:12 Resp 16 06/17/19 11:12 BP 136/88 06/17/19 11:12 Pulse Ox 97 06/17/19 11:12 Constitutional not obese ENMT Mouth: + poor dentition; no dentition abnormality Thyromental Distance: > or= 3.5 Finger Breadths Mallampati Class: II Neck normal visual inspection and trachea midline; neck extension not limited Respiratory normal respiratory effort Auscultation: lungs clear to auscultation bilaterally Cardiovascular Rate/Rhythm: regular rate and regular rhythm Heart Sounds: no murmur Vessels: no carotid bruit Musculoskeletal Spine: normal cervical ROM Neurologic moves all extremities Motor/Sensory: no sensory deficit Psychiatric Orientation: alert and oriented x 3 Testing Laboratory Results 06/17/19 07:35 06/17/19 07:35 Urine Color Giuliana 06/13/19 22:25 Urine Appearance Clear (Clear) 06/13/19 22:25 Urine pH 5.0 (4.5-7.5) 06/13/19 22:25 Ur Specific [place] 1.025 (1.000-1.030) 06/13/19 22:25 Urine Protein 1+ (Negative) H 06/13/19 22:25 Urine Glucose (UA) Negative (Negative) 06/13/19 22:25 Urine Ketones 1+ (Negative) H 06/13/19 22:25 Urine Nitrite Positive (Negative) A 06/13/19 22:25 Ur Leukocyte Esterase Negative (Negative) 06/13/19 22:25 Urine RBC 0-4 /hpf (0-4) 06/13/19 22:25 Urine WBC 0-5 /hpf (0-5) 06/13/19 22:25 Ur Epithelial Cells 5-10 /lpf (0-5) H 06/13/19 22:25 Blood Type A Negative 06/15/19 20:43 Antibody Screen NEGATIVE 06/15/19 20:43 06/14/19 10:34 Escherichia coli Shiga Toxins Test - Final Stool Stool Culture - Final No Salmonella isolated, No Shigella isolated, No Campylobacter jejuni isolated. 06/14/19 04:00 Escherichia coli Shiga Toxins Test - Final Stool Stool Culture - Final No Salmonella isolated, No Shigella isolated, No Campylobacter jejuni isolated. 06/13/19 23:04 Aerobic Blood Culture - Preliminary Blood No growth in Aerobic bottle after 48 hours. Anaerobic Blood Culture - Preliminary No growth in Anaerobic bottle after 48 hours. 06/13/19 23:14 Aerobic Blood Culture - Preliminary Blood No growth in Aerobic bottle after 48 hours. Anaerobic Blood Culture - Preliminary No growth in Anaerobic bottle after 48 hours. 06/13/19 22:25 Urine Culture - Final Urine,Clean Catch No growth - less than 1,000 colonies/mL. Electrocardiogram Date: 06/15/19 Findings: + ST @ (at 116;biatrial enlargement;NS T wave abnormality)
[2019-06-17] MEDS ORDERED: ePHEDrine sulfate 50 MG/ML AMP IV PRN (11:22)
[2019-06-17] MEDS ORDERED: ATROPINE SULFATE 0.1 MG/ML 10ML SYR IV PRN (11:22)
[2019-06-17] MEDS ORDERED: LIDOCAINE HCL 2% 2 ML VIAL/AMP(20MG/ML) INFIL ONE (11:23)
[2019-06-17] MEDS ORDERED: PROPOFOL IV EMULSION 10 MG/ML 20 ML VIAL IV ONE ×3 (11:23→11:58)
--- NOTE | 2019-06-17 12:01 | Anesthesiology Progress Note ---
Date of Service June 17, 2019 Anesthesia Post Procedure Vital Signs Vital Signs: Temp Pulse Pulse Resp BP BP Pulse Ox 06/17/19 11:12 36.8 C 100 H 16 136/88 97 06/17/19 08:12 36.8 C 105 H 20 136/84 98 06/17/19 07:23 105 H 06/17/19 04:00 36.9 C 103 H 20 133/87 97 06/17/19 00:26 103 H 06/16/19 23:00 36.9 C 102 H 20 113/76 97 06/16/19 19:53 37.1 C 99 H 20 125/87 93 06/16/19 15:54 84 06/16/19 15:00 37.0 C 118 H 16 133/89 97 Pain Intensity Abdomen: Pain Intensity: 4 Head: Pain Intensity: 2 Transfer of Care Handoff Completed per policy Notes Mental Status: alert / awake / arousable Patient Amnestic to Procedure: Yes Nausea / Vomiting: adequately controlled Pain: adequately controlled Airway Patency, RR, SpO2: stable & adequate BP & HR: stable & adequate Hydration State: stable & adequate Anesthetic Complications: no major complications apparent
--- NOTE | 2019-06-17 12:42 | GI REPORT ---
Patient Name: Anthony Aiken Procedure Date: 06/17/2019 11:33 AM Date of : 1985 Admit Type: Inpatient Age: 33 Gender: Male Attending MD: Edilson Victor MD Procedure: Colonoscopy Providers: Edilson Victor MD Referring MD: Andrez Hawkins Md Indications: Clinically significant diarrhea of unexplained origin, Abnormal CT of the GI tract Medicines: See the Anesthesia note for documentation of the administered medications Complications: No immediate complications. Estimated Blood Loss: Estimated blood loss was minimal. Procedure: Pre-Anesthesia Assessment: - Prior to the procedure, a History and Physical was performed, and patient medications, allergies and sensitivities were reviewed. The patient's tolerance of previous anesthesia was reviewed. - The risks and benefits of the procedure and the sedation options and risks were discussed with the patient. All questions were answered and informed consent was obtained. - Patient identification and proposed procedure were verified prior to the procedure by the physician and the nurse. The procedure was verified in the pre-procedure area. - Pre-procedure physical examination revealed no contraindications to sedation. - After reviewing the risks and benefits, the patient was deemed in satisfactory condition to undergo the procedure. After I obtained informed consent, the scope was passed under direct vision. Throughout the procedure, the patient's blood pressure, pulse, and oxygen saturations were monitored continuously. The Colonoscope was introduced through the anus and advanced to the terminal ileum, with identification of the appendiceal orifice and IC valve. The colonoscopy was performed without difficulty. The patient tolerated the procedure well. The quality of the bowel preparation was good. Findings: The perianal and digital rectal examinations were normal. The terminal ileum appeared normal. A continuous area of bleeding ulcerated mucosa was present from descending colon to transverse colon. Biopsies were taken with a cold forceps for histology. Verification of patient identification for the specimen was done by the physician and nurse using the patient's name and medical record number. Estimated blood loss was minimal. No additional abnormalities were found on retroflexion. Impression: - The examined portion of the ileum was normal. - Mucosal ulceration from mid descending colon to mid transverse colon. Biopsied. - Unclear if this is from infection, IBD or even ischemia. Recommendation: - Await pathology results. - Repeat stool studies. - Consider a CT angiogram looking for vascular disease. - [facility] care. Edilson Victor M.D. Edilson Victor MD 06/17/2019 12:42:16 PM This report has been signed electronically. Note Initiated On: 06/17/2019 11:33 AM Number of Addenda: 0 I attest to the content of the Intraoperative Record and orders documented therein, exceptions below {[id number]}
--- NOTE | 2019-06-17 15:03 | Hospitalist Progress Note ---
Date of Service June 17, 2019 Assessment & Plan (1) Abdominal pain: Colitis --CT ABD:Again seen is a nonspecific colitis involving predominantly the left colon as above. This is likely on an infectious/inflammatory basis in this age group, and this appears worsened from the 06/13/2019 examination. There is a small volume of free fluid in the pelvis, likely reactive. No intraperitoneal free air is seen. --S/P Colonoscopy:The examined portion of the ileum was normal. Mucosal ulceration from mid descending colon to mid transverse colon. Biopsied. Unclear if this is from infection, IBD or even ischemia. CT Angio: pending Repeat Stool studies:pending Pathology: pending Continue IV antibiotics--Cipro, Flagyl Appreciate GI input Pain control (2) Colitis: Management as above (3) Leukocytosis: Likely secondary to colitis IV Zosyn transitioned to Cipro, Flagyl Monitor CBC (4) Hypertension: Started on amlodipine, losartan Pain and IV fluids could be contributing Monitor H/O Chronic back pain Controlled minimize narcotics as needed H/O PTSD continue duloxetine DVT Px: SCDs Disposition: Expect to discharge home when stable Subjective Patient seen and examined at bedside Patient had colonoscopy earlier today Denies any abdominal discomfort/pain after colonoscopy Also denies any chest pain, shortness of breath, dizziness, nausea Offers no other complaints Review of Systems Review of Systems: All systems reviewed & are unremarkable except as noted in HPI & below Physical Exam Physical Exam: Physical Exam: Vitals signs as noted above General Appearance:Moderately built and nourished, no apparent distress Head: normocephalic, Atraumatic Eyes: normal inspection, EOMI Neck: supple, Trachea midline Respiratory/Chest: Normal breath sounds, CTA Cardiovascular: S1, S2, No murmur Abdomen/GI:Soft, Non tender, Bowel sounds present Extremities/Musculoskelatal:normal inspection, no edema Neurologic/Psych:AAOX3, grossly no focal neurological deficits Skin: normal color, warm Results & Data Vital Signs (Past 12 Hours) Vital Signs Temp Pulse Pulse Resp BP BP Pulse Ox 06/17/19 12:34 36.6 C 107 H 20 142/95 H 99 06/17/19 12:15 36.6 C 100 H 20 162/102 H 99 06/17/19 12:00 105 H 20 171/100 H 98 06/17/19 11:12 36.8 C 100 H 16 136/88 97 06/17/19 08:12 36.8 C 105 H 20 136/84 98 06/17/19 07:23 105 H 06/17/19 04:00 36.9 C 103 H 20 133/87 97 Laboratory Results Short CBC 06/17/19 Range/Units 07:35 WBC 22.37 H (4.8-10.8) K/uL Hgb 17.2 (14.0-18.0) g/dL Hct 47.4 (42-52) % Plt Count 171 (130-400) K/uL BMP 06/17/19 07:35 Sodium 135 L Potassium 4.0 Chloride 103 Carbon Dioxide 24 BUN 8 Creatinine 0.63 Glucose 104 H Calcium 8.9 Liver Function 06/17/19 Range/Units 07:35 Total Bilirubin 0.6 (0.2-1) mg/dl AST 9 L (15-37) U/L ALT 14 (12-78) U/L Alkaline Phosphatase 55 (45-117) U/L Albumin 2.9 L (3.4-5.0) gm/dl (1) Abdominal pain Abdominal location: lower abdomen, unspecified Qualified Code(s): R10.30 - Lower abdominal pain, unspecified (2) Leukocytosis Leukocytosis type: unspecified Qualified Code(s): D72.829 - Elevated white blood cell count, unspecified
[2019-06-17] MEDS ORDERED: OPTIRAY 320 125ml IV PRN (15:08)
--- NOTE | 2019-06-17 15:39 | CT Scan Report ---
CT ANGIOGRAPHY OF THE ABDOMEN AND PELVIS CLINICAL HISTORY: Left-sided colitis. Possible ischemia. COMPARISON STUDY: CT of the abdomen and pelvis June 15, 2019. TECHNIQUE: Helical axial images of the abdomen and pelvis were obtained during arterial phase followi ng intravenous injection of 119 cc of Optiray 320. Sagittal and coronal reconstructions were viewed a s well as maximal intensity projections on an independent 3-D workstation. FINDINGS: Lung bases are unremarkable. No pneumatosis, free air or portal venous gas is present. Mariluz rial phase images of liver, spleen, adrenal glands, kidneys and pancreas are normal. There is no ja pancreatic or pericholecystic infiltration. There is no biliary or pancreatic ductal dilatation. Note is again made of moderate wall thickening of the distal transverse colon, splenic flexure and descen ding colon with adjacent inflammation which is similar to exam of June 15, 2019. There is no free air or abscess. A small amount of fluid within the pelvis has slightly increased. The caliber of the abdominal aorta is normal. The bilateral renal arteries are patent. The celiac axis, superior mesente chantel artery and inferior mesenteric artery are also patent. No thrombus is identified within these ves sels. No stenosis is noted. There is no dissection. The bilateral common iliac, internal iliac and ex ternal iliac arteries are patent. IMPRESSION: 1. Unremarkable CTA of the abdominal aorta and branch vessels. No arterial occlusion. No stenosis. 2. No significant change in the left-sided colitis since prior MRI June 15, 2019. This remains non specific. No free air or abscess. Electronically signed by: Raghu Jordan M.D. 06/17/2019 3:38 PM
[2019-06-17] MEDS ORDERED: GABAPENTIN 400 MG CAP PO SCH (18:00)
[2019-06-18] MEDS: metroNIDAZOLE 500 MG/100 ML BAG IV SCH ×2 (00:21→09:03)
[2019-06-18] MEDS: OXYCODONE HCL IR 5 MG TAB (IMMEDIATE RELEASE) PO PRN (02:07)
[2019-06-18 07:11] LABS: Hemoglobin 15.7 g/dL (14.0-18.0); Mean Corpuscular Hemoglobin 34.1 pg (25-34); Mean Corpuscular Hgb Conc 35.7 g/dL (32-36); Mean Corpuscular Volume 95.7 fL (80-100); Mean Platelet Volume 10.6 fL (7.4-10.4); Platelet Count 198 K/uL (130-400); RDW Coefficient of Variation 13.5 % (11.5-14.5); RDW Standard Deviation 47.3 fL (36.4-46.3); White Blood Count 17.37 K/uL (4.8-10.8)
[2019-06-18 07:43] LABS: BUN Creatinine Ratio 11.7 (10-20); Calcium 8.8 mg/dl (8.5-10.1); Creatinine Clr Calc Pharmacy 134.3 ml/min; Est GFR (African American) 138.7; Est GFR (Non-African American) 119.7; Potassium 4.2 mmol/L (3.5-5.1)
[2019-06-18] MEDS: LACTATED RINGER'S 1,000 ML IV SCH (07:57)
--- NOTE | 2019-06-18 08:10 | Anesthesiology Progress Note ---
Date of Service June 18, 2019 Anesthesia Post Procedure Vital Signs Vital Signs: Temp Pulse Pulse Resp BP BP Pulse Ox 06/18/19 07:46 36.6 C 99 H 17 119/75 99 06/18/19 04:26 36.7 C 100 H 18 132/77 98 06/18/19 01:54 84 06/17/19 22:48 36.7 C 94 H 18 132/79 99 06/17/19 18:58 36.9 C 106 H 20 158/83 H 97 06/17/19 16:46 81 06/17/19 15:40 36.8 C 86 20 136/82 98 06/17/19 12:34 36.6 C 107 H 20 142/95 H 99 06/17/19 12:15 36.6 C 100 H 20 162/102 H 99 06/17/19 12:00 105 H 20 171/100 H 98 06/17/19 11:12 36.8 C 100 H 16 136/88 97 06/17/19 08:12 36.8 C 105 H 20 136/84 98 Pain Intensity Abdomen: Pain Intensity: 0 Head: Pain Intensity: 0 Notes Mental Status: alert / awake / arousable and participated in evaluation Patient Amnestic to Procedure: Yes Nausea / Vomiting: adequately controlled Pain: adequately controlled Airway Patency, RR, SpO2: stable & adequate BP & HR: stable & adequate Hydration State: stable & adequate Anesthetic Complications: no major complications apparent
[2019-06-18] MEDS: MAGNESIUM OXIDE 400 MG TAB PO SCH (08:50)
[2019-06-18] MEDS: DICYCLOMINE HCL 10 MG CAP PO SCH ×2 (08:50→13:21)
[2019-06-18] MEDS: AMLODIPINE BESYLATE 5 MG TAB PO SCH (08:50)
[2019-06-18] MEDS: DULOXETINE HCL 20 MG CAP PO SCH (08:51)
[2019-06-18] MEDS: LOSARTAN POTASSIUM 25 MG TAB PO SCH (08:51)
[2019-06-18] MEDS: CIPROFLOXACIN 400 MG/200 ML BAG IV SCH (08:59)
--- NOTE | 2019-06-18 10:44 | Gastroenterology Progress Note ---
Date of Service June 18, 2019 Assessment & Plan (1) Bloody stool: Pt is a 33 y/o male who is currently admitted w leukocytosis, abd pain, bloody stools. Cdiff negative, stool cx pending. CT abd/pelvis showed mildly dilated colon w large amt of stools and possible fecal impaction on distal colon/rectum area. There's also suggestion of mild colitis on CT scan.DDX: Infectious, inflammatory colitis, IBD, hemorrhoidal bleeding. ESR, CRP up. Colonoscopy done 06/17 showed mucosal ulceration from mid descending colon to mid transverse colon. Unclear etiology: infection vs IBD vs ischemia. Tissue bx pending. CTA obtained last night w/o signs of stenosis, or arterial occlusion. Repeat Cdiff negative. He feels well today w/o significant abd pain, n/v, or GI bleeding. Tolerating regular diet. - May continue Cipro/Flagyl x10 days course - F/U colonoscopy path result - No contraindication for DC home from GI standpoint; will help make f/u GI appt (2) Abdominal pain: (3) Leukocytosis: (4) Colitis: \ Subjective Pt feels great, would like to go home today. He did have CTA abd/pelvis which was unremarkable. He had loose BM last night and had some discomfort across upper abd. Denies any blood in stools. Denies any n/v. Tolerating regular diet this AM. Noted WBC decreased to 17K, H/H normal Review of Systems Review of Systems: All systems reviewed & are unremarkable except as noted in HPI & below Physical Exam Constitutional: WD/WN, vitals as above well groomed, cooperative and comfortable Eyes: PERRL, conjunctivae normal, anicteric sclerae ENMT: external ear and nose normal, oropharynx normal Respiratory: normal respiratory effort, lungs clear to auscultation Cardiovascular: RRR, no murmur, no edema Gastrointestinal (Abdomen): Inspection/Auscultation: + hypoactive bowel sounds Percussion/Palpation: + abdomen tender (across upper quadrants) and abdomen soft Skin: no rashes, warm and dry no jaundice Neurologic: Motor/Sensory: no asterixis Psychiatric: A+Ox3, euthymic affect Lymphatic: no lymphedema Results & Data Vital Signs (Past 12 Hours) Vital Signs Temp Pulse Pulse Resp BP BP Pulse Ox 06/18/19 07:46 36.6 C 99 H 17 119/75 99 06/18/19 04:26 36.7 C 100 H 18 132/77 98 06/18/19 01:54 84 06/17/19 22:48 36.7 C 94 H 18 132/79 99 (1) Abdominal pain Abdominal location: lower abdomen, unspecified Qualified Code(s): R10.30 - Lower abdominal pain, unspecified (2) Leukocytosis Leukocytosis type: unspecified Qualified Code(s): D72.829 - Elevated white blood cell count, unspecified
[2019-06-18] MEDS ORDERED: carvediloL 6.25 MG TAB PO SCH (12:15)
--- NOTE | 2019-06-18 12:27 | Hospitalist Progress Note ---
Date of Service June 18, 2019 Assessment & Plan (1) Abdominal pain: Colitis DD: Infectious, inflammatory colitis, IBD --CT ABD:Again seen is a nonspecific colitis involving predominantly the left colon as above. This is likely on an infectious/inflammatory basis in this age group, and this appears worsened from the 06/13/2019 examination. There is a small volume of free fluid in the pelvis, likely reactive. No intraperitoneal free air is seen. --S/P Colonoscopy:The examined portion of the ileum was normal. Mucosal ulceration from mid descending colon to mid transverse colon. Biopsied. Unclear if this is from infection, IBD or even ischemia. CT Angio: Unremarkable CTA of the abdominal aorta and branch vessels. No arterial occlusion. No stenosis. No significant change in the left-sided colitis since prior MRI June 15, 2019. This remains nonspecific. No free air or abscess. Repeat Stool studies: Negative for C. difficile Pathology: pending Continue IV antibiotics--Cipro, Flagyl>> plan to complete 10-day course Appreciate GI input Pain is controlled Needs follow-up with the GI upon discharge (2) Colitis: Management as above (3) Leukocytosis: Likely secondary to colitis IV Zosyn transitioned to Cipro, Flagyl Monitor CBC (4) Hypertension: Started on Coreg, losartan Pain, anxiety and IV fluids could be contributing Monitor H/O Chronic back pain Controlled minimize narcotics as needed H/O PTSD continue duloxetine DVT Px: SCDs Disposition: Plan to discharge home today Subjective Patient seen and examined at bedside Feels a lot better today No bleeding issues Tolerating diet Discussed with gastroenterology today Denies any abdominal pain, chest pain, shortness of breath, dizziness, nausea Offers no other complaints Plan to be discharged home today Review of Systems Review of Systems: All systems reviewed & are unremarkable except as noted in HPI & below Physical Exam Physical Exam: Physical Exam: Vitals signs as noted above General Appearance:Moderately built and nourished, no apparent distress Head: normocephalic, Atraumatic Eyes: normal inspection, EOMI Neck: supple, Trachea midline Respiratory/Chest: Normal breath sounds, CTA Cardiovascular: S1, S2, No murmur Abdomen/GI:Soft, Non tender, Bowel sounds present Extremities/Musculoskelatal:normal inspection, no edema Neurologic/Psych:AAOX3, grossly no focal neurological deficits Skin: normal color, warm Results & Data Vital Signs (Past 12 Hours) Vital Signs Temp Pulse Pulse Resp BP BP Pulse Ox 06/18/19 11:44 36.6 C 119 H 20 145/87 H 97 06/18/19 08:00 103 H 06/18/19 07:46 36.6 C 99 H 17 119/75 99 06/18/19 04:26 36.7 C 100 H 18 132/77 98 06/18/19 01:54 84 Laboratory Results Short CBC 06/18/19 Range/Units 06:19 WBC 17.37 H (4.8-10.8) K/uL Hgb 15.7 (14.0-18.0) g/dL Hct 44.0 (42-52) % Plt Count 198 (130-400) K/uL BMP 06/18/19 06:19 Sodium 137 Potassium 4.2 Chloride 103 Carbon Dioxide 30 BUN 9 Creatinine 0.75 Glucose 88 Calcium 8.8 (1) Abdominal pain Abdominal location: lower abdomen, unspecified Qualified Code(s): R10.30 - Lower abdominal pain, unspecified (2) Leukocytosis Leukocytosis type: unspecified Qualified Code(s): D72.829 - Elevated white blood cell count, unspecified
--- NOTE | 2019-06-18 12:41 | Discharge Summary ---
Date of Service June 18, 2019 Admission HPI Per Admitting Provider CHIEF COMPLAINT: Fever, abdominal pain. HISTORY OF PRESENT ILLNESS: This is a 33-year-old male with past medical history significant for posttraumatic stress disorder, chronic back pain, history of ureteral stone, presents with severe abdominal pain, starting in the evening. He had his lunch in the afternoon. He was somewhat constipated and small bowel movement today, but the pain is severe, so he called ambulance and came here. He received several doses of pain medication, currently pain is 4/10 in severity. He also has some nausea and vomiting, few episodes. Denies any blood in the vomitus. No black stools or blood in the stools. Currently, his hemodynamics are stable. Denies nausea. No chest pain, no shortness of breath, no cough, no fever, no chills, no headache, no dizziness, no blurred vision, no earache, no runny nose, no sore throat, no rash. Has some burning micturition, no hematuria. Admission Exam Per Admitting Provider PHYSICAL EXAMINATION: GENERAL: The patient is of moderate build, not in acute distress. VITAL SIGNS: Temperature afebrile, pulse 64, respiratory rate 16, blood pressure 182/102, oxygen 98% on room air. HEENT: No pallor, no icterus. Pupils equal, round, reactive to light. NECK: No JVD, no neck mass, no carotid bruit. CARDIOVASCULAR: S1, S2 heard, regular rate and rhythm, no murmur, no gallop. RESPIRATORY SYSTEM: Normal AP diameter. No thyromegaly. No wheezing, no crackles. ABDOMEN: Soft, diffuse tenderness, no rebound tenderness. Mild guarding, no rigidity. No distention. CENTRAL NERVOUS SYSTEM: Cranial nerves II-XII grossly intact. Nonfocal. EXTREMITIES: No edema, no erythema. Principal Diagnosis Abdominal pain, Colitis, Hypertension, Leukocytosis, Hypomagnesemia Discharge Data Allergies Allergy/AdvReac Type Severity Reaction Status Date / Time bacitracin Allergy Unknown HIVES Verified 06/17/19 11:05 neomycin Allergy Unknown HIVES Verified 06/17/19 11:05 polymyxin B Allergy Unknown HIVES Verified 06/17/19 11:05 Consultations 06/14/19 00:34 ED Decision to Admit Stat 06/14/19 15:11 Consult Gastroenterology Routine Procedures Performed Operation Date: 06/17/19 08:30 Actual Procedures p Colonoscopy Biopsy Cytology - Edilson Victor --CT ABD:Again seen is a nonspecific colitis involving predominantly the left colon as above. This is likely on an infectious/inflammatory basis in this age group, and this appears worsened from the 06/13/2019 examination. There is a small volume of free fluid in the pelvis, likely reactive. No intraperitoneal free air is seen. --S/P Colonoscopy:The examined portion of the ileum was normal. Mucosal ulcer ation from mid descending colon to mid transverse colon. Biopsied. Unclear if this is from infection, IBD or even ischemia. CT Angio: Unremarkable CTA of the abdominal aorta and branch vessels. No a rterial occlusion. No stenosis. No significant change in the left-sided colitis since prior MRI June 15, 2019. This remains nonspecific. No free air or abscess. Ordered Studies 06/13/19 22:25 CT abd pelvis IV con only Urgent 06/15/19 21:20 CT abd pelvis IV con only Urgent 06/17/19 12:16 CT angio abdomen pelvis w con Routine Hospital Course (1) Abdominal pain: Colitis DD: Infectious, inflammatory colitis, IBD --CT ABD:Again seen is a nonspecific colitis involving predominantly the left colon as above. This is likely on an infectious/inflammatory basis in this age group, and this appears worsened from the 06/13/2019 examination. There is a small volume of free fluid in the pelvis, likely reactive. No intraperitoneal free air is seen. --S/P Colonoscopy:The examined portion of the ileum was normal. Mucosal ulceration from mid descending colon to mid transverse colon. Biopsied. Unclear if this is from infection, IBD or even ischemia. CT Angio: Unremarkable CTA of the abdominal aorta and branch vessels. No arterial occlusion. No stenosis. No significant change in the left-sided colitis since prior MRI June 15, 2019. This remains nonspecific. No free air or abscess. Repeat Stool studies: Negative for C. difficile Pathology: pending Continue IV antibiotics--Cipro, Flagyl>> plan to complete 10-day course Appreciate GI input Pain is controlled Needs follow-up with the GI upon discharge (2) Colitis: Management as above (3) Leukocytosis: Likely secondary to colitis IV Zosyn transitioned to Cipro, Flagyl Monitor CBC (4) Hypertension: Started on Coreg, losartan Pain, anxiety and IV fluids could be contributing Monitor H/O Chronic back pain Controlled minimize narcotics as needed H/O PTSD continue duloxetine DVT Px: SCDs Disposition: Plan to discharge home today Total Time Total Time Spent Total Time Spent (In Minutes): 38 minutes Total Time Includes: Examination of the Patient, Discharge Planning, Medication Reconciliation, Communication With Other Providers and Other Discharge Plan Discharge Items Patient Disposition: Home - Self-Care Reason For Visit: ABD PAIN Discharge Diagnosis: Abdominal pain, Colitis, Hypertension, Leukocytosis, Hypomagnesemia Condition on Discharge: Fair Activity: Resume your previous activity Exercise/Sports: Gradually increase as tolerated Non-emergency contact: Primary Care Provider and Real Estate Professor Call non-emergency contact if: you have any medication questions, your symptoms worsen, your pain is not controlled, your pain is worsening, your pain is unusual for you, your pain is concerning for you and you have a fever Follow-up/Referrals: Cori Fish DO [Primary Care Provider] - Diet: Regular Addtl Attending Provider Instructions: Follow up with your PCP Dr.Laura Genia Fish DO on 06/19/19 at 1:30pm Follow up with your Real Estate Professor Dr. Victor as advised Complete the antibiotic course as prescribed Seek immediate medical attention if your symptoms reoccur or worsen Pending Studies at Discharge: Yes Studies:: Pathology results Stand-Alone Forms: Call Back Authorization, [facility], [facility], Smoking Cessation Medications and DC Order Prescriptions: New carvedilol 6.25 mg Tablet 6.25 mg PO BID 30 Days Qty: 60 RF: 0 losartan 25 mg Tablet 25 mg PO QAM 30 Days Qty: 30 RF: 0 dicyclomine 10 mg Capsule 10 mg PO TID PRN (Reason: Abdominal Pain) Qty: 30 RF: 0 ciprofloxacin HCl 500 mg tablet 500 mg PO BID Qty: 16 RF: 0 metronidazole [Flagyl] 500 mg tablet 500 mg PO Q8H 8 Days Qty: 24 RF: 0 Continued hydrocodone-acetaminophen [[place]] 5-325 mg tablet 1 tab PO Q6H PRN (Reason: pain) Qty: 15 RF: 0 duloxetine 20 mg capsule,delayed release(DR/EC) 40 mg PO DAILY RF: 0 Discontinued cyclobenzaprine 10 mg tablet 10 mg PO TID PRN (Reason: muscle spasm) Qty: 15 RF: 0 Discharge Orders: Discharge Order (Routine); Ordered 06/18/19 Ordered By: Andrez Hawkins Admission Data Admit Date/Time: 06/16/19 07:45 Attending Provider: Andrez Hawkins Admit Provider: John Nieto Primary Care Provider: Cori Fish Other Providers: John Nieto ; Divina Thomas ; Serge López Other Interventions: Discharge Summary Assessment (RN) Last Done: 06/18/19 13:38 DC Date/Time DO NOT enter until pt leaves facility: 06/18/19 13:55
[2019-06-18] MEDS ORDERED: GABAPENTIN 100 MG CAP PO SCH (18:00)
== END 2019-06-18 13:55 | disposition home or self-care (01) | DRG 392 ==
LOC: ED 21:28 → 2W 21:28 → 2N 06-14 20:01 → SUATTDRO 06-16 07:45

== ENCOUNTER 2020-04-08 03:47 | Inpatient (IN) ==
[2020-04-08 04:35] LABS: Basophils # (auto) 0.03 K/uL (0-0.2); Basophils % (auto) 0.2 %; Eosinophils # (auto) 0.14 K/uL (0-0.5); Eosinophils % (auto) 1.1 %; Hemoglobin 14.9 g/dL (14.0-18.0); Immature Granulocytes # (auto) 0.03 K/uL (0.00-0.02); Immature Granulocytes % (auto) 0.2 %; Lymphocytes % (auto) 24.9 %; Mean Corpuscular Hemoglobin 32.7 pg (25-34); Mean Corpuscular Hgb Conc 33.9 g/dL (32-36); Mean Corpuscular Volume 96.7 fL (80-100); Monocytes # (auto) 0.96 K/uL (0.11-0.59); Monocytes % (auto) 7.5 %; Neutrophils # (auto) 8.48 K/uL (1.4-6.5); Neutrophils % (auto) 66.1 %; Platelet Count 222 K/uL (130-400); RDW Coefficient of Variation 14.1 % (11.5-14.5); RDW Standard Deviation 49.5 fL (36.4-46.3); Red Blood Count 4.55 M/uL (4.7-6.1); White Blood Count 12.84 K/uL (4.8-10.8)
[2020-04-08 04:53] LABS: Albumin Level 3.6 gm/dl (3.4-5.0); BUN Creatinine Ratio 6.2 (10-20); Creatinine Clr Calc Pharmacy 136.6 ml/min; Est GFR (African American) 139.3; Est GFR (Non-African American) 120.2; Potassium 2.9 mmol/L (3.5-5.1)
[2020-04-08] MEDS ORDERED: POTASSIUM CHLORIDE / WTR 10 MEQ/100 ML PLCT IV ONE ×2 (05:00→07:25)
[2020-04-08] MEDS ORDERED: SODIUM CHLORIDE 0.9% 500 ML IV ONE (05:00)
[2020-04-08 05:04] LABS: Albumin Globulin Ratio 1.2 (0.9-2); Bilirubin,Total 0.3 mg/dl (0.2-1); Globulin 3.1 gm/dl (2.5-4.0); Thyroid Stimulating Hormone 1.8 uIu/ml (0.300-4.500); Total Protein 6.7 gm/dl (6.4-8.2)
[2020-04-08 05:11] LABS: Salicylate 2.5 mg/dl (2.8-20)
--- NOTE | 2020-04-08 05:28 | Emergency Department Note ---
Impression & Plan Overdose, Hypokalemia ED Provider Note NAME: ALEXANDRIA ALLISON AGE: 34 SEX: M ARRIVES VIA: Police Cruiser INFORMANT: Patient police ED PROVIDER(S): Gladys Francis DO CHIEF COMPLAINT: Overdose PLAN: Disposition: The case was signed out to Dr. Steiner at change of shift await ing medical clearance psychiatric evaluation Condition: Stable MEDICAL DECISION MAKING: This is a 34-year-old male patient who took an overdose tonight. He describes being "done" with life. He sent some text messages to friends that were concerning that he was going to harm himself. The patient was brought to the emergency department by police. Laboratory studies were drawn and the patient was found to be slightly intoxicated and have a low potassium level. His potassium is being replaced at this time. The case will be signed out to Dr. Jatin gray after waiting for him to medically cleared. At that time, he will be evaluated by the ED psychiatric telephonic nurse case manager. Triage Nursing notes reviewed and agree them. Additional history obtained from police Prior medical records reviewed Vital Signs: reviewed and unremarkable Differential diagnosis: Mood disorder, alcohol intoxication, drug overdose, thought disorder ER treatment provided: IV potassium replacement Diagnostics interpreted by me: ECG: Normal sinus rhythm at 89. No ST segment elevation or signs of ischemia. No ectopy. Cardiac Monitoring: Normal sinus rhythm at 86 Laboratory studies: See below HPI: 34/M arrives for evaluation of overdose. This is a 34-year-old male patient who took an overdose of hydrocodone and Flexeril. The patient had also been drinking alcohol. He said that he was "done" with life. He had texted friends that he would not be here to see tomorrow. The patient denies any other previous suicide attempts. He does describe one previous inpatient psychiatric stay when he lived in [place]. ROS: See above HPI for pertinent positives & negatives. A total of 10 systems reviewed and were otherwise negative. PAST MEDICAL HISTORY:See Below PAST SURGICAL HISTORY:See Below FAMILY HISTORY:See Below SOCIAL HISTORY:See Below HOME MEDICATIONS:See Below ALLERGIES:See Below VITALS:See Below PHYSICAL EXAMINATION: General: The patient is somewhat slow to answer questions. At times, he seems lethargic. HEENT: Head - normocephalic and atraumatic Pupils are equal, round, and reactive to light. Extraocular eye muscles are intact, and sclera are anicteric. Nose - moist nasal mucosa without discharge. Mouth - moist buccal mucosa. Oropharynx is nonerythematous and there is no tonsillar exudate or edema noted. Neck: Supple; no cervical lymphadenopathy Heart: Regular rate and rhythm. There is a normal S1 and S2 with no murmurs, clicks, or gallops appreciated. Lungs: Clear to auscultation bilaterally with no wheezes, rales, or rhonchi. Abdomen: Soft, completely nontender, nondistended, with good bowel sounds. There are no palpable pulsatile masses or hepatosplenomegaly. There is no guarding, rigidity, or rebound noted. Extremities: No evidence of cyanosis, clubbing, or edema. There are easily palpable peripheral pulses. Skin: warm and dry with good turgor and no rashes. Psych: The patient admits to drinking some alcohol, taking an overdose of hydrocodone and Flexeril. He admits to being "done" with life. He denies any previous suicide attempts. He does describe one previous inpatient psychiatric stay ED COURSE: Times/Reassessments: 0355: The patient was evaluated in room A3. A complete history and physical was performed. Labs are drawn as above. 0505: Patient was reevaluated at this time. An IV lock was initiated because the patient was hypokalemic and he was given a K rider. 0635: The case will be signed out to Dr. Steiner is a good change of shift Gladys Francis DO Past Med/Surg History Medical History (Updated 04/08/20 @ 06:33 by Gladys Francis DO) Hypertension Kidney stones No pertinent past medical history Family History Other Cancer Hypertension Social History Smoking Status: Current every day smoker Cigarettes Per Day: 1 PPD; Second Hand Exposure: Yes; Hx Alcohol Use: Yes Alcohol type: beer and hard liquor Hx Substance Use: Yes Preferred Language: Wolof Communication Ability: Effective Building Carpenter Helper Required: No Beliefs That Will Affect Care: None Current Living Situation: Alone Feels Safe at Home: Yes Allergies Allergies Allergy/AdvReac Type Severity Reaction Status Date / Time bacitracin Allergy Unknown HIVES Verified 04/08/20 04:36 neomycin Allergy Unknown HIVES Verified 04/08/20 04:36 polymyxin B Allergy Unknown HIVES Verified 04/08/20 04:36 Home Meds Home Medications Medication Instructions Recorded Confirmed cyclobenzaprine 10 mg PO TID PRN 04/08/20 04/08/20 Results & Data (ED) Vital Signs Vital Signs - 24 hr 04/08/20 04:11 04/08/20 06:10 Temperature 36.9 C Temperature Source Oral Pulse Rate 103 H Pulse Rate [Apical] 86 Respiratory Rate 18 18 Respiratory Effort / Characteristics Non-Labored Respiratory Depth Normal Respiratory Pattern Regular Blood Pressure 156/104 H Blood Pressure [Right Arm] 122/77 Blood Pressure Mean 121 Blood Pressure Mean [Right Arm] 92 Blood Pressure Position [Right Arm] Lying Pulse Oximetry 94 92 Oxygen Delivery Method Room Air Room Air Sepsis Recent Fever Within 48 Hours No Sepsis New/Unexplained Change in Mental Status No Sepsis Action Taken by Nursing No Action Required Laboratory Data Result diagrams: 04/08/20 04:20 04/08/20 04:20 Lab Results 04/08/20 04/08/20 04/08/20 Range/Units 04:20 04:20 04:20 WBC 12.84 H (4.8-10.8) K/uL RBC 4.55 L (4.7-6.1) M/uL Hgb 14.9 (14.0-18.0) g/dL Hct 44.0 (42-52) % MCV 96.7 (80-100) fL MCH 32.7 (25-34) pg MCHC 33.9 (32-36) g/dL RDW Std Deviation 49.5 H (36.4-46.3) fL RDW Coeff of Christian 14.1 (11.5-14.5) % Plt Count 222 (130-400) K/uL MPV 10.0 (7.4-10.4) fL Immature Gran % (Auto) 0.2 % Neut % (Auto) 66.1 % Lymph % (Auto) 24.9 % [place] % (Auto) 7.5 % Eos % (Auto) 1.1 % Baso % (Auto) 0.2 % Neut # (Auto) 8.48 H (1.4-6.5) K/uL Lymph # (Auto) 3.20 (1.2-3.4) K/uL [place] # (Auto) 0.96 H (0.11-0.59) K/uL Eos # (Auto) 0.14 (0-0.5) K/uL Baso # (Auto) 0.03 (0-0.2) K/uL Immature Gran # (Auto) 0.03 H (0.00-0.02) K/uL Sodium 141 (136-145) mmol/L Potassium 2.9 L (3.5-5.1) mmol/L Chloride 108 H (98-107) mmol/L Carbon Dioxide 26 (21-32) mmol/L Anion Gap 7.0 (3-11) BUN 4 L (7-18) mg/dl Creatinine 0.73 (0.6-1.4) mg/dl Est Cr Clr Drug Dosing 136.6 ml/min Est GFR ( Amer) 139.3 Est GFR (Non-Af Amer) 120.2 BUN/Creatinine Ratio 6.2 L (10-20) Glucose 96 (70-99) mg/dl Calcium 8.0 L (8.5-10.1) mg/dl Total Bilirubin 0.3 (0.2-1) mg/dl AST 21 (15-37) U/L ALT 33 (12-78) U/L Alkaline Phosphatase 50 (45-117) U/L Total Protein 6.7 (6.4-8.2) gm/dl Albumin 3.6 (3.4-5.0) gm/dl Globulin 3.1 (2.5-4.0) gm/dl Albumin/Globulin Ratio 1.2 (0.9-2) TSH 1.800 (0.300-4.500) uIu/ml Salicylates 2.5 L (2.8-20) mg/dl Acetaminophen 16 (10-30) ug/ml Ethyl Alcohol mg/dL (0-3) mg/dl 04/08/20 Range/Units 04:20 WBC (4.8-10.8) K/uL RBC (4.7-6.1) M/uL Hgb (14.0-18.0) g/dL Hct (42-52) % MCV (80-100) fL MCH (25-34) pg MCHC (32-36) g/dL RDW Std Deviation (36.4-46.3) fL RDW Coeff of Christian (11.5-14.5) % Plt Count (130-400) K/uL MPV (7.4-10.4) fL Immature Gran % (Auto) % Neut % (Auto) % Lymph % (Auto) % [place] % (Auto) % Eos % (Auto) % Baso % (Auto) % Neut # (Auto) (1.4-6.5) K/uL Lymph # (Auto) (1.2-3.4) K/uL [place] # (Auto) (0.11-0.59) K/uL Eos # (Auto) (0-0.5) K/uL Baso # (Auto) (0-0.2) K/uL Immature Gran # (Auto) (0.00-0.02) K/uL Sodium (136-145) mmol/L Potassium (3.5-5.1) mmol/L Chloride (98-107) mmol/L Carbon Dioxide (21-32) mmol/L Anion Gap (3-11) BUN (7-18) mg/dl Creatinine (0.6-1.4) mg/dl Est Cr Clr Drug Dosing ml/min Est GFR ( Amer) Est GFR (Non-Af Amer) BUN/Creatinine Ratio (10-20) Glucose (70-99) mg/dl Calcium (8.5-10.1) mg/dl Total Bilirubin (0.2-1) mg/dl AST (15-37) U/L ALT (12-78) U/L Alkaline Phosphatase (45-117) U/L Total Protein (6.4-8.2) gm/dl Albumin (3.4-5.0) gm/dl Globulin (2.5-4.0) gm/dl Albumin/Globulin Ratio (0.9-2) TSH (0.300-4.500) uIu/ml Salicylates (2.8-20) mg/dl Acetaminophen (10-30) ug/ml Ethyl Alcohol mg/dL 67.0 H (0-3) mg/dl Administered Medications Discontinued Medications Sodium Chloride (Nss) 500 mls @ 999 mls/hr IV .Q31M ONE Stop: 04/08/20 05:30 Last Infusion: 04/08/20 06:09 Dose: 0 mls/hr Documented by: [id number] Admin: 04/08/20 05:12 Dose: 999 mls/hr Documented by: [id number] Potassium Chloride (K Kwesi / Wtr) 10 meq in 100 mls @ 100 mls/hr IV ONE ONE Stop: 04/08/20 05:59 Last Admin: 04/08/20 05:12 Dose: 100 mls/hr Documented by: [id number] Discharge Plan Visit Data Chief Complaint: Mental Health Evaluation Stated Complaint: MENTAL HEALTH/OVERDOSE ED Provider: Gladys Francis Discharge Problem: Overdose, Hypokalemia Forms Stand Alone Forms: [facility], Suicide Prevention Resources Prescriptions Prescriptions: No Action cyclobenzaprine 10 mg tablet 10 mg PO TID PRN (Reason: Muscle Spasm) RF: 0 Discharge Problem: Overdose Qualifiers: Encounter type: initial encounter Injury intent: intentional self-harm Qualified Code(s): T50.902A - Poisoning by unspecified drugs, medicaments and biological substances, intentional self-harm, initial encounter
--- NOTE | 2020-04-08 07:27 | Emergency Department Note ---
ED Visit Note The patient was taken in signout from Dr. Francis at the change of shift. Please see that note for details. The patient was pending repeat labs and psychiatric disposition. Repeat laboratory testing did not reveal any significant abnormalities. I did meet with the patient. Due to his suicidal attempt/gesture via intentional overdose and risk factors the patient needs psychiatric evaluation in the hospital. We did have a discussion about 201 versus 302 quite extensively. After this discussion the patient agreed for voluntary admission given his high risk for further events. 3 S. evaluated the patient in the emergency department and he was admitted voluntarily for further management. . : Overdose Qualifiers: Encounter type: initial encounter Injury intent: intentional self-harm Qualified Code(s): T50.902A - Poisoning by unspecified drugs, medicaments and biological substances, intentional self-harm, initial encounter
[2020-04-08 08:56] LABS: Appearance Urine Clear (Clear); Bilirubin Urine Negative (Negative); Blood Urine Negative (Negative); Color Urine Yellow; Glucose Urine UA Negative (Negative); Ketones Urine Negative (Negative); Leukocyte Esterase Urine Negative (Negative); Nitrite Urine Negative (Negative); Protein Urine Negative (Negative); Urobilinogen Urine Negative (Negative)
[2020-04-08 09:15] LABS: Amphetamines+Metham, Urine Neg (Neg); Barbiturates, Urine Neg (Neg); Benzodiazepine, Urine Neg (Neg); Cocaine, Urine Neg (Neg); MDMA (Ecstacy), Urine Neg (Neg); Methadone, Urine Neg (Neg); Opiate, Urine Pos (Neg); Phencyclidine, Urine Neg (Neg)
[2020-04-08] MEDS ORDERED: ACETAMINOPHEN 325 MG TAB PO PRN (10:42)
[2020-04-08] MEDS ORDERED: ALUMINUM/MAGNESIUM SUSP 30 ML UDC PO PRN (10:42)
[2020-04-08] MEDS ORDERED: SODIUM CHLORIDE 0.65% NA SOLN 45 ML (OCEAN) PRN (10:42)
[2020-04-08] MEDS ORDERED: MAGNESIUM HYDROXIDE SUSP 30 ML UDC PO PRN (10:42)
[2020-04-08] MEDS ORDERED: BISMUTH SUBSALICYLATE PER ML OMNICELL CHARGE PO PRN (10:42)
[2020-04-08 11:54] VITALS: O2SAT 100
[2020-04-08] MEDS ORDERED: OXYCODONE/ACETAMINOPHEN 10-325 TAB PO STA (12:39)
--- NOTE | 2020-04-08 16:30 | History & Physical ---
Date of Service April 08, 2020 Impression / Recommendations Impression The patient is a 34-year-old man who was brought into the emergency department by the police early this morning after the police were called by 1 of the patient's friends. The friend received texts from the patient that indicated that the patient had already taken an overdose of pills (later identified by the patient as Percocet) with the intent of dying. The text messages indicated that the patient told the friend that he expected that he would be later in the morning because of the overdose. The patient presently is marginally cooperative with the emergency room department, and agreed to sign a voluntary agreement, but for reasons that are not at all clear to us, upon arriving on the behavioral health unit the patient refused to cooperate, glared angrily at persons on the staff who greeted him and attempted to orient him, announced that he would not cooperate in any way and, in fact, would refuse to eat on the unit, and eventually simply averted his eyes and stopped responding in any way to questions. Based on the toxicology data, there is some suspicion that the patient actually did not take an overdose and, instead, possibly as the result of consuming alcohol, he misrepresented the truth in his text to his friend. We are presuming, but at this point do not have enough data to know with any degree of certainty, that the patient is externalizing responsibility for the circumstances in which he now finds himself. We do not know if he is angry at his friend, at the hospital, or even directly with the staff on the behavioral health unit. But he does come across as an individual who feels that some sort of injustice has been visited upon him. He does not come across as being suspicious, just angry and defiant. Attempts to assure him that if the admission was in someway a mistake or the result of poor judgment on his part we would work with him and hopefully be able to determine that he can be safely return to the community as soon as possible. This explanation seems to hold no weight with the patient and he has continued throughout the admission assessment process to simply refused to speak to us. At times, he closes his eyes we try to talk to him or looks away. We have also tried to explain in fairly direct terms that lack of cooperation will not lead to discharge and, in fact, will likely result in a prolonged length of stay because we will not be able to gather sufficient data to used to determine whether he can be safely discharged. It appears that the patient believes that going on a "hunger strike" and steadfastly refusing to talk to of any of us is going to her result in his immediate release, and, regrettably, we cannot seem to help the patient understand that the opposite is true. (1) Overdose: 04/08 -The patient steadfastly refused to cooperate with a psychiatric evaluation upon arriving on the behavioral health unit and seems to believe that a lack of cooperation will result in a rapid discharge. However, we cannot be certain what is going on in terms of the patient's mental status given his refusal to cooperate. -The patient has been admitted to the [facility] behavioral health unit and has been placed on suicide precautions. When appropriate, he will be encouraged to participate in individual, group, and activity therapies. We will also discussed with him the option of resuming treatment of a antidepressant medication such as duloxetine, either for his mood disorder or for treatment of his PTSD. We will also attempt, the patient's permission, to involve a friend or family member in the care and treatment. -Although the patient texted a friend and indicated that he had taken an overdose of medicines and expected that he had taken enough to kill himself, and while the patient also confirmed in the emergency department that he had, in fact, taken an overdose, but the patient's toxicology laboratory data measured this morning in the emergency department is not consistent with his assertion that he is taking an overdose of a medication that contains 325 mg of acetaminophen. Specifically, the patient's acetaminophen level, more than 2 hours after the patient had asserted that he had taken the overdose of Percocet, was only 13, which is at the low end of the therapeutic range and certainly not toxic. -Given that the patient is simply refusing to discuss question of suicidality and details of the reported overdose at this point, we will need to defer questions in this regard to a time when the patient is perhaps more rested and more willing to cooperate. Encounter type: initial encounter Injury intent: intentional self-harm Qualified Code(s): T50.902A - Poisoning by unspecified drugs, medicaments and biological substances, intentional self-harm, initial encounter Present on Admission?: Yes (2) Hypokalemia: 04/08 -The patient's serum potassium level in the emergency department was 2.9 at 430 this morning. He was given potassium supplements and as of 8:05 AM this morning his potassium level had returned to normal (3.7). Present on Admission?: Yes (3) Mood disorder: 04/08 -The presence of a current mood disorder is only presumed based on the patient's affect and the fact that he reported this morning that he had taken an overdose of medication in order to end his life. He is not cooperating with a psychiatric evaluation and, of course, there may be other explanations for the overdosesuch as chronic pain or distress associated with his known diagnosis of PTSD. -Because the patient is unable or unwilling to cooperate with an assessment of his mood and mood symptoms we will not prescribe an antidepressant medication at this time. It is noted that in the past he had taken Cymbalta, and this might be an option. However, this will have to wait until the patient becomes more cooperative. -When appropriate, the patient will be encouraged to participate in individual, group, and activity therapies. We are presuming that a focus of his treatment will need to be learning improved individual coping strategies, particularly learning how best to communicate his needs to others. Present on Admission?: Yes (4) PTSD (post-traumatic stress disorder): 04/08 -Patient's old medical records indicate that he has in the past been given a diagnosis of PTSD. 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 Present on Admission?: Yes (5) Lumbar back pain: 04/08 -The patient has a documented history of lumbar back pain. We are not clear at this point about the etiology of the back pain, but it is clear that he has been given various treatments, primarily analgesics and a muscle relaxant. Our plan will be to continue his outpatient pain management medications pending further assessment which we assume will be possible when the patient becomes more cooperative with our assessments. Present on Admission?: Yes Inventory Assets Strengths: Supportive friend Needs: Improved individual coping strategies. Further assessment of his mental status and psychiatric history. Risk Factors Assessment Chronic pain. Psychiatric diagnosis (PTSD). Male: Yes : Yes Health Problems: Yes Mental Health Diagnoses: Yes Smoker: Yes Protective Factors Assessment Employed: No (disabled) Psychiatric History Identifying Data ALEXANDRIA ALLISON is a 34-year-old M who currently lives in [place]. He has a reported history of depression and PTSD. He was admitted on 04/08/20 10:42 on a 201 voluntary agreement after he texted a friend and indicated that he had taken a deliberate overdose of medications with a intent to kill himself. Chief Complaint " Well, it is not good to meet you." History of Present Illness The patient is a 34-year-old male with a known history of PTSD and a presumed history of depression. Although he was admitted on a voluntary basis from the emergency room, he is deliberately uncooperative with the assessment and, in fact, the only words that he altered consisted of his responding "Well, it is not good to meet you" after I introduced myself and said that it was good to meet him. The patient also altered that he would intend not to eat in the hospital and signaled that he would refuse to cooperate with anything that we might suggest. Within this context, given the patient's lack of cooperation, we are basing the following findings on the patient's past medical record, the emergency room notes, and text messages that were found on the patient's telephone by the police and shared with the hospital. The patient's [facility] records indicate that the patient does have a diagnosis of PTSD, and, as of 06/18/19, had been taking duloxetine (Cymbalta) 40 mg a day specifically for PTSD. Was also noted that the patient is a . It is not known if his diagnosis of PTSD is service-connected, and it is also not known if he is eligible to receive services through the [place]. The current admission to the [facility] behavioral health unit was precipitated in the early hours of the day of admission when the patient texted a friend and wrote, "... I can't go on anymore, and hopefully tomorrow never comes." [I am] pretty sure I took enough." The recipient of the text responded by telling the patient that he was going call the police and have them do a "wellness check." The patient responded by saying that he was not home, and just that he was "wandering around [facility] [[place] The friends response suggests that he was supposing that the patient had taken his "pain medicine," and the patient answered "no reason to go home." The patient then offered to stop by the friend's home. The friend advised the patient that he had already called the police, and the patient's texted response was "they will never take me alive. Treadwell Treadwell Treadwell." Apparently, the patient did arrive at the friend's residence, and eventually he was escorted to the emergency room for evaluation by the local police. The patient then acknowledged that he had taken an intentional overdose of Percocet (codeine 10 mg/acetaminophen 325 mg) and but was either unwilling or unable to say how many pills he took. The patient also acknowledged that he had been drinking (alcohol) and appeared to be somewhat intoxicated. His blood alcohol level was measured in the emergency department was 67 mg/dL. Tox screen was positive for opioids, consistent with his report that he had taken Percocets, but his acetaminophen level was 13, which is at the low end of the therapeutic range for acetaminophen. Currently, there is some question regarding the validity of the patient's assertion that he had, in fact, taken an overdose of his pain medications. When he arrived on the behavioral health unit, approximately 6 hours after being evaluated in the emergency room, he was fully alert and stood in the day room while glaring at staff in the nursing station. He did not appear in any way sedated. Instead, the patient's affect was simply bumptious and angry. As noted above, although the patient come in as a voluntary patient, he quickly advised us that he was not going eat as long as we kept him on the unit. He was not amenable to reason, and seemed to be focused on the notion that somehow he was the victim of a misunderstanding that he was unwilling to attempt to resolve. Multiple attempts to speak with him were met with silence. Past Psychiatric History Previous Psych History: Although the patient refused to respond to any questions regarding his mental health, his record indicates that he has previously been diagnosed with PTSD. We are also presuming that he suffers from depression, but this cannot be confirmed at this time. Current Psychiatric Diagnosis: Depression with suicidal ideation. Outpatient Services: The patient did not cooperate by providing information regarding outpatient treatment and is declined to agree to releases of information. Previous Psych Admissions: The patient did not respond to questions regarding previous psychiatric admissions. To the best of our knowledge, there is no history of any previous psychiatric hospitalization but this will need to be clarified when the patient becomes more cooperative Describe Attempts in the Past: The patient did not respond to questions previous suicide attempts Past Medication Trials: As noted above, the record indicates that as of May 2019 the patient was taking duloxetine (Cymbalta) 40 mg a day for his PTSD. Allergies Allergy/AdvReac Type Severity Reaction Status Date / Time bacitracin Allergy Unknown HIVES Verified 04/08/20 04:36 neomycin Allergy Unknown HIVES Verified 04/08/20 04:36 polymyxin B Allergy Unknown HIVES Verified 04/08/20 04:36 Home Medications Home Medications Medication Instructions Recorded Confirmed Type cyclobenzaprine 10 mg PO TID PRN 04/08/20 04/08/20 History Family History Family History of: Refuses To Discuss Alcohol History Hx of Alcohol Use Over the Past 12 Months: Yes AUDIT Total Score: 4 Smoking Use Have You Smoked or Used Tobacco Products in the Last 30 Days: No tobacco type: cigarettes Smoking Status: Current every day smoker Smoking packs per day: 1.5 Substance History Hx of Prescription Med Misuse Over the Past 12 Months: Yes (overdose of prescribed medications) Hx of Over the Counter Med Misuse Over the Past 12 Months: No Hx of Inhalent Misuse Over the Past 12 Months: No Hx of Organic Substance Use Over the Past 12 Months: Yes (marijuana) Hx of Illegal Substances/Street Drug Use Over Past 12 Months: No Problems as a Result of Past Substance Use: None Identified Personal History Living Arrangements: Home Beliefs That Will Affect Care: None Patient History Medical History Hypertension Kidney stones No pertinent past medical history Family History Other Cancer Hypertension Social History Smoking Status: Current every day smoker Cigarettes Per Day: 1 PPD; Second Hand Exposure: Yes; Hx Alcohol Use: Yes Alcohol type: beer and hard liquor Hx Substance Use: Yes Preferred Language: Portuguese Communication Ability: Effective Yard Conductor Required: No Beliefs That Will Affect Care: None Current Living Situation: Alone Feels Safe at Home: Yes Review of Systems Review of Systems: The patient did not cooperate upon his arrival on the [facility] with attempts to conduct a review of systems. A review of the record reveals that the patient has a history of back pain, and it was recently learned that the patient was prescribed Percocet 10 mg / 325 mg on or about 04/07/2020 for his back pain. He also reportedly takes cyclobenzaprine 10 mg 3 times a day as needed for back pain. The record notes that he has a history of colitis, as well as a history of renal calculi. Details of the patient's chronic back pain are to be determined. He advised emergency room personnel that he smokes a pack and a half of cigarettes a day, but would not discuss with us whether he wished to have nicotine replacement medications well on the unit. The physical examination, somatic history, and review of systems completed by Gladys Francis of the emergency department have been reviewed and are excepted for purposes of medical clearance to the [facility] unit. Physical Exam 2 Psychiatric: Orientation: alert, oriented to person and + guarded The patient otherwise refused to cooperate with a mental status examination. Apperance: appropriately dressed and appeared stated age Eye Contact: + poor eye contact Motor Behavior: steady gait and station Speech: normal rate/rhythm/volume of speech Affect: + irritable affect and + angry affect The patient declined to respond to questions concerning mood. The patient's thought processes cannot be adequately evaluated because the patient refused to cooperate with examination. It was not possible to evaluate the patient's thought content other than to note that he made it clear that he is not pleased about something, presumably the fact that he is on the behavioral health unit given that he was apparently significantly more cooperative in the emergency department. The patient otherwise Suicidal Thoughts: + reports suicidal thoughts As above, as of this morning the patient had sent a text message to a friend that indicated that he could not "go on anymore" and expected that "tomorrow never comes," because he was "pretty sure that [he] took enough." He confirmed in the emergency department that he had, in fact, deliberately taken what he considered to be an overdose of Percocet. The patient steadfastly refused to discuss this further once he had reached the behavioral health unit. As noted above, there is some question regarding the veracity of the patient's assertion that he took a deliberate overdose of his medications, given that he says that he took an overdose of Percocet, and his acetaminophen level is only at the low end of therapeutic range. The patient declines to cooperate in any way with a mental status examination, and all questions directed to him were met with silence.. The patient declines to cooperate in any way with a mental status examination, and all questions directed to him were met with silence.. The patient declines to cooperate in any way with a mental status examination, and all questions directed to him were met with silence.. We do not have sufficient information with which to estimate the patient's intelligence. We do not have sufficient information to evaluate the level of the patient's insight. His behavior, however, suggest that he is externalizing all responsibility for the fact that he has ended up admitted to a psychiatric unit after texting a friend and saying that he had taken an overdose that he expected would kill him. Judgement: + poor judgement We have tried explained to the patient that if it is the case that he is not happy about being in the hospital, the best thing that he can do is cooperate with this and explain what happened. Points such as this are met with angry stairs by the patient. Vital Signs (Past 24 Hours): Last Vital Signs Temp 36.9 C 04/08/20 12:19 Pulse 82 04/08/20 12:19 Resp 18 04/08/20 12:19 BP 120/72 04/08/20 12:19 Pulse Ox 100 04/08/20 11:52 Results & Data ([facility]) Laboratory Results Laboratory Results - last 24 hr 04/08/20 04/08/20 04/08/20 04:20 04:20 04:20 WBC 12.84 H RBC 4.55 L Hgb 14.9 Hct 44.0 MCV 96.7 MCH 32.7 MCHC 33.9 RDW Std Deviation 49.5 H RDW Coeff of Christian 14.1 Plt Count 222 MPV 10.0 Immature Gran % (Auto) 0.2 Neut % (Auto) 66.1 Lymph % (Auto) 24.9 Lares % (Auto) 7.5 Eos % (Auto) 1.1 Baso % (Auto) 0.2 Neut # (Auto) 8.48 H Lymph # (Auto) 3.20 Lares # (Auto) 0.96 H Eos # (Auto) 0.14 Baso # (Auto) 0.03 Immature Gran # (Auto) 0.03 H Sodium 141 Potassium 2.9 L Chloride 108 H Carbon Dioxide 26 Anion Gap 7.0 BUN 4 L Creatinine 0.73 Est Cr Clr Drug Dosing 136.6 Est GFR ( Amer) 139.3 Est GFR (Non-Af Amer) 120.2 BUN/Creatinine Ratio 6.2 L Glucose 96 Calcium 8.0 L Total Bilirubin 0.3 AST 21 ALT 33 Alkaline Phosphatase 50 Total Protein 6.7 Albumin 3.6 Globulin 3.1 Albumin/Globulin Ratio 1.2 TSH 1.800 Urine Color Urine Appearance Urine pH Ur Specific [place] Urine Protein Urine Glucose (UA) Urine Ketones Urine Blood Urine Nitrite Urine Bilirubin Urine Urobilinogen Ur Leukocyte Esterase Salicylates 2.5 L Urine Opiates Screen U Codeine Confrm GC/MS Ur Morphine (GC/MS) Ur Hydrocodone (GC/MS) Ur Norhydrocodone Ur Noroxycodone Urine Oxycodone (GC/MS) U Oxymorphone GC/MS Ur Methadone, Qual Ur Hydromorphone (GC/MS) Acetaminophen 16 Urine Barbiturates Ur Phencyclidine (PCP) U Amphetamin/Meth Scrn MDMA (Ecstasy) Screen U Benzodiazepines Scrn Ur Cocaine Metabolite U Marijuana (THC) Screen U Marijuana THC Carboxy Drug Screen Comment Ethyl Alcohol mg/dL 04/08/20 04/08/20 04/08/20 04:20 07:45 07:45 WBC RBC Hgb Hct MCV MCH MCHC RDW Std Deviation RDW Coeff of Christian Plt Count MPV Immature Gran % (Auto) Neut % (Auto) Lymph % (Auto) Lares % (Auto) Eos % (Auto) Baso % (Auto) Neut # (Auto) Lymph # (Auto) Lares # (Auto) Eos # (Auto) Baso # (Auto) Immature Gran # (Auto) Sodium Potassium Chloride Carbon Dioxide Anion Gap BUN Creatinine Est Cr Clr Drug Dosing Est GFR ( Amer) Est GFR (Non-Af Amer) BUN/Creatinine Ratio Glucose Calcium Total Bilirubin AST ALT Alkaline Phosphatase Total Protein Albumin Globulin Albumin/Globulin Ratio TSH Urine Color Yellow Urine Appearance Clear Urine pH 6.0 Ur Specific [place] 1.010 Urine Protein Negative Urine Glucose (UA) Negative Urine Ketones Negative Urine Blood Negative Urine Nitrite Negative Urine Bilirubin Negative Urine Urobilinogen Negative Ur Leukocyte Esterase Negative Salicylates Urine Opiates Screen Pos H U Codeine Confrm GC/MS Ur Morphine (GC/MS) Ur Hydrocodone (GC/MS) Ur Norhydrocodone Ur Noroxycodone Urine Oxycodone (GC/MS) U Oxymorphone GC/MS Ur Methadone, Qual Neg Ur Hydromorphone (GC/MS) Acetaminophen Urine Barbiturates Neg Ur Phencyclidine (PCP) Neg U Amphetamin/Meth Scrn Neg MDMA (Ecstasy) Screen Neg U Benzodiazepines Scrn Neg Ur Cocaine Metabolite Neg U Marijuana (THC) Screen Pos H U Marijuana THC Carboxy Drug Screen Comment Ethyl Alcohol mg/dL 67.0 H 04/08/20 04/08/20 04/08/20 07:45 08:05 08:05 WBC RBC Hgb Hct MCV MCH MCHC RDW Std Deviation RDW Coeff of Christian Plt Count MPV Immature Gran % (Auto) Neut % (Auto) Lymph % (Auto) Lares % (Auto) Eos % (Auto) Baso % (Auto) Neut # (Auto) Lymph # (Auto) Lares # (Auto) Eos # (Auto) Baso # (Auto) Immature Gran # (Auto) Sodium Potassium 3.7 D Chloride Carbon Dioxide Anion Gap BUN Creatinine Est Cr Clr Drug Dosing Est GFR ( Amer) Est GFR (Non-Af Amer) BUN/Creatinine Ratio Glucose Calcium Total Bilirubin AST ALT Alkaline Phosphatase Total Protein Albumin Globulin Albumin/Globulin Ratio TSH Urine Color Urine Appearance Urine pH Ur Specific [place] Urine Protein Urine Glucose (UA) Urine Ketones Urine Blood Urine Nitrite Urine Bilirubin Urine Urobilinogen Ur Leukocyte Esterase Salicylates Urine Opiates Screen U Codeine Confrm GC/MS Pending Ur Morphine (GC/MS) Pending Ur Hydrocodone (GC/MS) Pending Ur Norhydrocodone Pending Ur Noroxycodone Pending Urine Oxycodone (GC/MS) Pending U Oxymorphone GC/MS Pending Ur Methadone, Qual Ur Hydromorphone (GC/MS) Pending Acetaminophen 13 Urine Barbiturates Ur Phencyclidine (PCP) U Amphetamin/Meth Scrn MDMA (Ecstasy) Screen U Benzodiazepines Scrn Ur Cocaine Metabolite U Marijuana (THC) Screen U Marijuana THC Carboxy Pending Drug Screen Comment Pending Ethyl Alcohol mg/dL Current Inpatient Medications Current Inpatient Medications: Current Inpatient Medications Acetaminophen (Acetaminophen 325 Mg Tab) 650 mg PO Q4H PRN PRN Reason: Headache or Minor Fever Stop: 05/08/20 10:41 Al Hydrox/Mg Hydrox/Simethicone (Aluminum/Magnesium Susp 30 Ml Udc) 30 ml PO Q4H PRN PRN Reason: GI Upset Stop: 05/08/20 10:41 Bismuth Subsalicylate (Bismuth Subsalicylate Per Ml Omnicell Charge) 15 ml PO PRN PRN PRN Reason: Loose Stool Stop: 05/08/20 10:41 Cyclobenzaprine HCl (Cyclobenzaprine Hcl 10 Mg Tab) 10 mg PO TID PRN PRN Reason: Muscle Spasm Stop: 05/08/20 13:00 Hydroxyzine HCl (Hydroxyzine Hcl 25 Mg Tab) 50 mg PO HSZ PRN PRN Reason: Insomnia Stop: 05/08/20 10:41 Hydroxyzine HCl (Hydroxyzine Hcl 25 Mg Tab) 25 mg PO Q4H PRN PRN Reason: Anxiety Stop: 05/08/20 10:41 Magnesium Hydroxide (Magnesium Hydroxide Susp 30 Ml Udc) 30 ml PO DAILY PRN PRN Reason: Constipation Stop: 05/08/20 10:41 Oxycodone/Acetaminophen (Oxycodone/Acetaminophen 10-325 Tab) 1 tab PO Q8H PRN PRN Reason: Breakthrough Pain Stop: 04/22/20 20:43 Sodium Chloride (Sodium Chloride 0.65% Na Soln 45 Ml ([place])) 1 - 2 sprays NA PRN PRN PRN Reason: Nasal Dryness/Congestion Stop: 05/08/20 10:41
[2020-04-08] MEDS ORDERED: NICOTINE POLACRILEX 2 MG GUM MT PRN (17:54)
[2020-04-09] MEDS: CYCLOBENZAPRINE HCL 10 MG TAB PO PRN ×2 (10:48→20:27)
[2020-04-09] MEDS: OXYCODONE/ACETAMINOPHEN 10-325 TAB PO PRN ×2 (10:49→20:28)
--- NOTE | 2020-04-09 13:21 | Psychiatric Progress Note ---
Date of Service April 09, 2020 Impression / Recommendations Impression Per admitting provider: The patient is a 34-year-old man who was brought into the emergency department by the police early this morning after the police were called by 1 of the patient's friends. The friend received texts from the patient that indicated that the patient had already taken an overdose of pills (later identified by the patient as Percocet) with the intent of dying. The text messages indicated that the patient told the friend that he expected that he would be later in the morning because of the overdose. The patient presently is marginally cooperative with the emergency room department, and agreed to sign a voluntary agreement, but for reasons that are not at all clear to us, upon arriving on the behavioral health unit the patient refused to cooperate, glared angrily at persons on the staff who greeted him and attempted to orient him, announced that he would not cooperate in any way and, in fact, would refuse to eat on the unit, and eventually simply averted his eyes and stopped responding in any way to questions. Based on the toxicology data, there is some suspicion that the patient actually did not take an overdose and, instead, possibly as the result of consuming alcohol, he misrepresented the truth in his text to his friend. We are presuming, but at this point do not have enough data to know with any degree of certainty, that the patient is externalizing responsibility for the circumstances in which he now finds himself. We do not know if he is angry at his friend, at the hospital, or even directly with the staff on the behavioral health unit. But he does come across as an individual who feels that some sort of injustice has been visited upon him. He does not come across as being suspicious, just angry and defiant. Attempts to assure him that if the admission was in someway a mistake or the result of poor judgment on his part we would work with him and hopefully be able to determine that he can be safely return to the community as soon as possible. This explanation seems to hold no weight with the patient and he has continued throughout the admission assessment process to simply refused to speak to us. At times, he closes his eyes we try to talk to him or looks away. We have also tried to explain in fairly direct terms that lack of cooperation will not lead to discharge and, in fact, will likely result in a prolonged length of stay because we will not be able to gather sufficient data to used to determine whether he can be safely discharged. It appears that the patient believes that going on a "hunger strike" and steadfastly refusing to talk to of any of us is going to her result in his immediate release, and, regrettably, we cannot seem to help the patient understand that the opposite is true. (1) Overdose: 04/08 -The patient steadfastly refused to cooperate with a psychiatric evaluation upon arriving on the behavioral health unit and seems to believe that a lack of cooperation will result in a rapid discharge. However, we cannot be certain what is going on in terms of the patient's mental status given his refusal to cooperate. -The patient has been admitted to the locked behavioral health unit and has been placed on suicide precautions. When appropriate, he will be encouraged to participate in individual, group, and activity therapies. We will also discussed with him the option of resuming treatment of a antidepressant medication such as duloxetine, either for his mood disorder or for treatment of his PTSD. We will also attempt, the patient's permission, to involve a friend or family member in the care and treatment. -Although the patient texted a friend and indicated that he had taken an overdose of medicines and expected that he had taken enough to kill himself, and while the patient also confirmed in the emergency department that he had, in fact, taken an overdose, but the patient's toxicology laboratory data measured this morning in the emergency department is not consistent with his assertion that he is taking an overdose of a medication that contains 325 mg of acetaminophen. Specifically, the patient's acetaminophen level, more than 2 hours after the patient had asserted that he had taken the overdose of Percocet, was only 13, which is at the low end of the therapeutic range and certainly not toxic. -Given that the patient is simply refusing to discuss question of suicidality and details of the reported overdose at this point, we will need to defer questions in this regard to a time when the patient is perhaps more rested and more willing to cooperate. 04/09 -Patient's self-report remains irregular and he is not felt to be a trustworthy historian at this time -Patient is here on a voluntary commitment, requesting to sign 72-hour notice at time of psychiatric interview today which she will be permitted to do. In the meantime he will remain on the locked unit for a period of monitoring during which we will continue to try to engage him therapeutically as able -Patient is presently denying suicidal or homicidal ideation and expresses eagerness for discharge to home -Psychoeducation provided addressing impact of chronic pain on mood and coping. He refused to consider an antidepressant trial presently (2) Hypokalemia: 04/08 -The patient's serum potassium level in the emergency department was 2.9 at 430 this morning. He was given potassium supplements and as of 8:05 AM this morning his potassium level had returned to normal (3.7). (3) Mood disorder: 04/08 -The presence of a current mood disorder is only presumed based on the patient's affect and the fact that he reported this morning that he had taken an overdose of medication in order to end his life. He is not cooperating with a psychiatric evaluation and, of course, there may be other explanations for the overdosesuch as chronic pain or distress associated with his known diagnosis of PTSD. -Because the patient is unable or unwilling to cooperate with an assessment of his mood and mood symptoms we will not prescribe an antidepressant medication at this time. It is noted that in the past he had taken Cymbalta, and this might be an option. However, this will have to wait until the patient becomes more cooperative. -When appropriate, the patient will be encouraged to participate in individual, group, and activity therapies. We are presuming that a focus of his treatment will need to be learning improved individual coping strategies, particularly learning how best to communicate his needs to others. (4) PTSD (post-traumatic stress disorder): 04/08 -Patient's old medical records indicate that he has in the past been given a diagnosis of PTSD. 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 (5) Lumbar back pain: 04/08 -The patient has a documented history of lumbar back pain. We are not clear at this point about the etiology of the back pain, but it is clear that he has been given various treatments, primarily analgesics and a muscle relaxant. Our plan will be to continue his outpatient pain management medications pending further assessment which we assume will be possible when the patient becomes more cooperative with our assessments. 04/09 -We will continue home dose of Percocet 10/325 three times daily as needed to avoid withdrawal and flexeril as rx'd for pain. However, due to recent evidence of inability to maintain safe custodianship/use of this type of medication outpatient taper should be considered. Inventory Assets Strengths: Supportive friend Needs: Improved individual coping strategies. Further assessment of his mental status and psychiatric history. Risk Factors Assessment Male: Yes : Yes Health Problems: Yes Mental Health Diagnoses: Yes Smoker: Yes Protective Factors Assessment Employed: No (disabled) Interval History Chief Complaint " I do not need to be here. I just want to go home". Review of Systems Notes Notes blood pressure elevation this morning but denies cardiac symptoms otherwise. Sleep Information Total Hours of Sleep: 12.75 Sleep Comments: two snoring episodes of deep sleep-the first at the beginning of the shift and the other mid shift. he did not acknowledge wakefulness on any rounds. he did change his laying in bed positions a few times. Meal Information Percent Meal Consumed - Breakfast: 0 Percent Meal Consumed - Lunch: 0 Percent Meal Consumed - Dinner: 0 Medication Trials Lyrica Possible history of Cymbalta Subjective Subjective Patient was seen & assessed and interval progress reviewed with treatment team nursing and social work. Patient was not cooperative with intake psychiatric assessment and is found to be only minimally more cooperative today. He continues to provide a self-report that has been inconsistent over time, this morning stating that he cannot remember if he took an overdose of medications "but I probably did." He states that if he did take medication and overdose it was in the setting of alcohol intoxication and he has decided not to drink anymore so we do not have to worry about it happening again. He adamantly and repeatedly denies intent or plan for self harm or harm to anyone else at present and states that there is nothing that we can do for him here in the hospital and that being in the hospital was making him feel worse. He complains of feeling anxious to be "cooped up." He has been minimally forthcoming about psychiatric history. He does acknowledge that he was psychiatrically hospitalized approximately 10 years ago and because the physician that committed him inco mpetent. He minimizes triggering events or recent stressors. He states that he "just had a bad night" and minimizes concern for depression or any other psychiatric symptomatology recently or presently. He denies interest or need for antidepressant treatment even after discussing potential benefit for chronic pain. "I am a disabled . I have been dealing with this for many years and I know all about it and I do not need anything like that." He denies abuse, misuse, or history of withdrawal associated with opioid analgesia. He has been filling the prescription for Percocet 10/325 number 90 tablets on a monthly basis for many months now. The only other controlled prescription that is identified in PDMP was pregabalin 50 mg #60 dispensed on 01/28/2020. Physical Exam Psychiatric Orientation: alert, oriented to person, oriented to place, oriented to time and + guarded Apperance: + disheveled Eye Contact: + fair eye contact Motor Behavior: n akathisia and n tremor Speech: normal rate/rhythm/volume of speech Affect: + angry affect "fine" Thought Process: + perseveration Thought Content: + preoccupation; not paranoid, no delusions, no hopelessness, no worthlessness and no self deprecation Suicidal Thoughts: denies suicidal thoughts, denies suicidal plan and denies suicidal intent Homicidal Thoughts: denies homicidal thoughts, denies homicidal plan and denies homicidal intent Hallucinations: no auditory hallucinations, no visual hallucinations and no ta ctile hallucinations Cognition: + recent memory not intact (Inconsistent self-report) Estimated Intelligence: average estimated intelligence Insight: + limited insight Judgement: + limited judgement Vital Signs (Past 24 Hours) Last Vital Signs Temp 36.9 C 04/09/20 06:22 Pulse 97 H 04/09/20 06:22 Resp 18 04/09/20 06:22 BP 146/94 H 04/09/20 06:22 Pulse Ox 100 04/08/20 11:52 Results & Data ([facility]) Current Inpatient Medications Current Inpatient Medications: Current Inpatient Medications Acetaminophen (Acetaminophen 325 Mg Tab) 650 mg PO Q4H PRN PRN Reason: Headache or Minor Fever Stop: 05/08/20 10:41 Al Hydrox/Mg Hydrox/Simethicone (Aluminum/Magnesium Susp 30 Ml Udc) 30 ml PO Q4H PRN PRN Reason: GI Upset Stop: 05/08/20 10:41 Bismuth Subsalicylate (Bismuth Subsalicylate Per Ml Omnicell Charge) 15 ml PO PRN PRN PRN Reason: Loose Stool Stop: 05/08/20 10:41 Cyclobenzaprine HCl (Cyclobenzaprine Hcl 10 Mg Tab) 10 mg PO TID PRN PRN Reason: Muscle Spasm Stop: 05/08/20 13:00 Last Admin: 04/09/20 10:48 Dose: 10 mg Documented by: Hydroxyzine HCl (Hydroxyzine Hcl 25 Mg Tab) 50 mg PO HSZ PRN PRN Reason: Insomnia Stop: 05/08/20 10:41 Hydroxyzine HCl (Hydroxyzine Hcl 25 Mg Tab) 25 mg PO Q4H PRN PRN Reason: Anxiety Stop: 05/08/20 10:41 Magnesium Hydroxide (Magnesium Hydroxide Susp 30 Ml Udc) 30 ml PO DAILY PRN PRN Reason: Constipation Stop: 05/08/20 10:41 Nicotine Polacrilex (Nicotine Polacrilex 2 Mg Gum) 1 piece MT PRN PRN PRN Reason: nicotine cravings Stop: 05/08/20 17:53 Oxycodone/Acetaminophen (Oxycodone/Acetaminophen 10-325 Tab) 1 tab PO Q8H PRN PRN Reason: Breakthrough Pain Stop: 04/22/20 20:43 Last Admin: 04/09/20 10:49 Dose: 1 tab Documented by: Sodium Chloride (Sodium Chloride 0.65% Na Soln 45 Ml ([place])) 1 - 2 sprays NA PRN PRN PRN Reason: Nasal Dryness/Congestion Stop: 05/08/20 10:41 Post Discharge Appointments Primary Care Physician Name Of Family Doctor: Shivani Fish Primary Care Provider Appointment Comment: Marshall Hwang Contact Information Discharge Discharge Address: [address] [place] [address] (1) Overdose Encounter type: initial encounter Injury intent: intentional self-harm Qualified Code(s): T50.902A - Poisoning by unspecified drugs, medicaments and biological substances, intentional self-harm, initial encounter
[2020-04-10 06:24] LABS: Codeine Urine NEGATIVE ng/mL (<50); Hydrocodone Urine 5090 ng/mL (<50); Hydromor Urine 123 ng/mL (<50); Marijuana Quant, GCMS Urine 213 ng/mL (<5); Morphine Urine NEGATIVE ng/mL (<50); Norhydrocodone Conf Ur 5570 ng/mL (<50); Noroxycodone Urine NEGATIVE ng/mL (<50); Oxycodone Urine NEGATIVE ng/mL (<50); Oxymorph Urine NEGATIVE ng/mL (<50)
[2020-04-10] MEDS: OXYCODONE/ACETAMINOPHEN 10-325 TAB PO PRN ×2 (06:27→21:26)
[2020-04-10] MEDS: CYCLOBENZAPRINE HCL 10 MG TAB PO PRN ×2 (06:37→21:26)
[2020-04-10] MEDS ORDERED: cloNIDine HCL 0.1 MG TAB PO ONE (07:59)
--- NOTE | 2020-04-10 16:23 | Psychiatric Progress Note ---
Date of Service April 10, 2020 Impression / Recommendations Impression Per admitting provider: The patient is a 34-year-old man who was brought into the emergency department by the police early this morning after the police were called by 1 of the patient's friends. The friend received texts from the patient that indicated that the patient had already taken an overdose of pills (later identified by the patient as Percocet) with the intent of dying. The text messages indicated that the patient told the friend that he expected that he would be later in the morning because of the overdose. The patient presently is marginally cooperative with the emergency room department, and agreed to sign a voluntary agreement, but for reasons that are not at all clear to us, upon arriving on the behavioral health unit the patient refused to cooperate, glared angrily at persons on the staff who greeted him and attempted to orient him, announced that he would not cooperate in any way and, in fact, would refuse to eat on the unit, and eventually simply averted his eyes and stopped responding in any way to questions. Based on the toxicology data, there is some suspicion that the patient actually did not take an overdose and, instead, possibly as the result of consuming alcohol, he misrepresented the truth in his text to his friend. We are presuming, but at this point do not have enough data to know with any degree of certainty, that the patient is externalizing responsibility for the circumstances in which he now finds himself. We do not know if he is angry at his friend, at the hospital, or even directly with the staff on the behavioral health unit. But he does come across as an individual who feels that some sort of injustice has been visited upon him. He does not come across as being suspicious, just angry and defiant. Attempts to assure him that if the admission was in someway a mistake or the result of poor judgment on his part we would work with him and hopefully be able to determine that he can be safely return to the community as soon as possible. This explanation seems to hold no weight with the patient and he has continued throughout the admission assessment process to simply refused to speak to us. At times, he closes his eyes we try to talk to him or looks away. We have also tried to explain in fairly direct terms that lack of cooperation will not lead to discharge and, in fact, will likely result in a prolonged length of stay because we will not be able to gather sufficient data to used to determine whether he can be safely discharged. It appears that the patient believes that going on a "hunger strike" and steadfastly refusing to talk to of any of us is going to her result in his immediate release, and, regrettably, we cannot seem to help the patient understand that the opposite is true. (1) Overdose: 04/08 -The patient steadfastly refused to cooperate with a psychiatric evaluation upon arriving on the behavioral health unit and seems to believe that a lack of cooperation will result in a rapid discharge. However, we cannot be certain what is going on in terms of the patient's mental status given his refusal to cooperate. -The patient has been admitted to the locked behavioral health unit and has been placed on suicide precautions. When appropriate, he will be encouraged to participate in individual, group, and activity therapies. We will also discussed with him the option of resuming treatment of a antidepressant medication such as duloxetine, either for his mood disorder or for treatment of his PTSD. We will also attempt, the patient's permission, to involve a friend or family member in the care and treatment. -Although the patient texted a friend and indicated that he had taken an overdose of medicines and expected that he had taken enough to kill himself, and while the patient also confirmed in the emergency department that he had, in fact, taken an overdose, but the patient's toxicology laboratory data measured this morning in the emergency department is not consistent with his assertion that he is taking an overdose of a medication that contains 325 mg of acetaminophen. Specifically, the patient's acetaminophen level, more than 2 hours after the patient had asserted that he had taken the overdose of Percocet, was only 13, which is at the low end of the therapeutic range and certainly not toxic. -Given that the patient is simply refusing to discuss question of suicidality and details of the reported overdose at this point, we will need to defer questions in this regard to a time when the patient is perhaps more rested and more willing to cooperate. 04/09 -Patient's self-report remains irregular and he is not felt to be a trustworthy historian at this time -Patient is here on a voluntary commitment, requesting to sign 72-hour notice at time of psychiatric interview today which she will be permitted to do. In the meantime he will remain on the locked unit for a period of monitoring during which we will continue to try to engage him therapeutically as able -Patient is presently denying suicidal or homicidal ideation and expresses eagerness for discharge to home -Psychoeducation provided addressing impact of chronic pain on mood and coping. He refused to consider an antidepressant trial presently 04/10 -Patient continues to deny thoughts of harm to self or others and has signed a 72-hour notice which will be due on Saturday. Unfortunately he is likely getting very little therapeutic benefit from a hospital part for maintenance of safety at this time despite significant and repeated efforts to engage him therapeutically. (2) Hypokalemia: 04/08 -The patient's serum potassium level in the emergency department was 2.9 at 430 this morning. He was given potassium supplements and as of 8:05 AM this morning his potassium level had returned to normal (3.7). (3) Mood disorder: 04/08 -The presence of a current mood disorder is only presumed based on the patient's affect and the fact that he reported this morning that he had taken an overdose of medication in order to end his life. He is not cooperating with a psychiatric evaluation and, of course, there may be other explanations for the overdosesuch as chronic pain or distress associated with his known diagnosis of PTSD. -Because the patient is unable or unwilling to cooperate with an assessment of his mood and mood symptoms we will not prescribe an antidepressant medication at this time. It is noted that in the past he had taken Cymbalta, and this might be an option. However, this will have to wait until the patient becomes more cooperative. -When appropriate, the patient will be encouraged to participate in individual, group, and activity therapies. We are presuming that a focus of his treatment will need to be learning improved individual coping strategies, particularly learning how best to communicate his needs to others. (4) PTSD (post-traumatic stress disorder): 04/08 -Patient's old medical records indicate that he has in the past been given a diagnosis of PTSD. 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 04/10 -patient declined to consider mirtazapine trial (5) Lumbar back pain: 04/08 -The patient has a documented history of lumbar back pain. We are not clear at this point about the etiology of the back pain, but it is clear that he has been given various treatments, primarily analgesics and a muscle relaxant. Our plan will be to continue his outpatient pain management medications pending further assessment which we assume will be possible when the patient becomes more cooperative with our assessments. 04/09 -We will continue home dose of Percocet 10/325 three times daily as needed to avoid withdrawal and flexeril as rx'd for pain. However, due to recent evidence of inability to maintain safe custodianship/use of this type of medication outpatient taper should be considered. (6) Hypertension: 04/10 -Reviewed risks of poorly managed hypertension with patient. He refuses any intervention presently reporting a history of blood pressure elevation associated with stress in the past. He is asymptomatic. Will change vitals to twice daily Inventory Assets Strengths: Supportive friend Needs: Improved individual coping strategies. Further assessment of his mental status and psychiatric history. Risk Factors Assessment Male: Yes : Yes Health Problems: Yes Mental Health Diagnoses: Yes Smoker: Yes Protective Factors Assessment Employed: No (disabled) Interval History Chief Complaint "I need out of here. I'm not going to do anything." Review of Systems Notes Denies headache, chest pain Sleep Information Total Hours of Sleep: 8 Sleep Comments: two snoring episodes of deep sleep-the first at the beginning of the shift and the other mid shift. he did not acknowledge wakefulness on any rounds. he did change his laying in bed positions a few times. Meal Information Percent Meal Consumed - Breakfast: 0 Percent Meal Consumed - Lunch: 0 Percent Meal Consumed - Dinner: 0 Medication Trials Lyrica Possible history of Cymbalta Subjective Subjective Patient was seen & assessed and interval progress reviewed with treatment team. Patient continues to refuse to participate in any sort of activity outside of his room keeping mostly to bed, drinking but not eating. Telling staff he does not like any of our food. His 72-hour notice was signed and will be due on Saturday at 10 AM. He refused as needed clonidine this morning for blood pressure elevation which was asymptomatic. He was not engageable by nursing, social work, or unit therapist. He continues to maintain that he does not need to be here and remains steadfast in his refusal to accept any sort of help from us. On interview I attempted to align our interests and trying to get him safely out of the hospital however he was so rigid and inflexible in disavowing any sort of need for help, support, or treatment, and remained precipitously focused on what he perceives to be a very high importance and returning to the care of his bill paying and cats at home. He was willing to talk a bit about his prior PTSD diagnosis which she reports was service related and indicates that he continues to have some nightmares but denies flashbacks and feels this is getting better. [facility]. He denies that he self medicates with pain medicine or recreational substances for PTSD or mood. He denies again overusing or abusing his prescribed opioid pain reliever. He again denies any history of withdrawal. He states that his mood is "perfectly fine" and steadfastly clings to the notion that the only problem in his life at present is the fact that he is in the hospital. Due to the nature of some of his refusals such as refusing to shower because we did not have his special shampoo or refusing to eat because we did not have food that he liked I queried him about possibility of underlying obsessive-compulsive traits. He indicated that he liked his routine at home but denies overt rituals. He does not perceive his inflexibility as pathological. He repeatedly asked to be discharged today. We discussed inability to obtain aftercare on a Saturday and I was informed that he was poorly participatory with the geriatric social worker when she went in to help him start to arrange aftercare following our discussion today. He has consistently denied continued suicidal ideation since admission. Medication Trials Lyrica Possible history of Cymbalta Physical Exam Psychiatric Orientation: alert, oriented x 3 and + guarded Apperance: appropriately dressed, appropriately groomed and appeared stated age Eye Contact: good eye contact Motor Behavior: no abnormal motor movements; n tremor Speech: no pressured speech (loud and rapid at times) Affect: no angry affect (frustrated appearing but does not overly lose composure) Mood: no depressed mood ("perfectly fine") Thought Process: + perseveration Thought Content: + preoccupation (discharge) Suicidal Thoughts: denies suicidal thoughts, denies suicidal plan and denies suicidal intent Homicidal Thoughts: denies homicidal thoughts Hallucinations: no auditory hallucinations, no visual hallucinations and no tactile hallucinations Cognition: attention grossly intact and language grossly intact Estimated Intelligence: average estimated intelligence Insight: + fair insight Judgement: + limited judgement Vital Signs (Past 24 Hours) Last Vital Signs Temp 36.8 C 04/10/20 06:36 Pulse 103 H 04/10/20 08:27 Resp 18 04/10/20 06:36 BP 151/112 H 04/10/20 08:27 Pulse Ox 100 04/08/20 11:52 Results & Data ([id number]) Laboratory Results Laboratory Results - last 24 hr 04/08/20 07:45 U Codeine Confrm GC/MS NEGATIVE Ur Morphine (GC/MS) NEGATIVE Ur Hydrocodone (GC/MS) 5090 H Ur Norhydrocodone 5570 H Ur Noroxycodone NEGATIVE Urine Oxycodone (GC/MS) NEGATIVE U Oxymorphone GC/MS NEGATIVE Ur Hydromorphone (GC/MS) 123 H U Marijuana THC Carboxy 213 H Drug Screen Comment SEE NOTE Current Inpatient Medications Current Inpatient Medications: Current Inpatient Medications Acetaminophen (Acetaminophen 325 Mg Tab) 650 mg PO Q4H PRN PRN Reason: Headache or Minor Fever Stop: 05/08/20 10:41 Al Hydrox/Mg Hydrox/Simethicone (Aluminum/Magnesium Susp 30 Ml Udc) 30 ml PO Q4H PRN PRN Reason: GI Upset Stop: 05/08/20 10:41 Bismuth Subsalicylate (Bismuth Subsalicylate Per Ml Omnicell Charge) 15 ml PO PRN PRN PRN Reason: Loose Stool Stop: 05/08/20 10:41 Cyclobenzaprine HCl (Cyclobenzaprine Hcl 10 Mg Tab) 10 mg PO TID PRN PRN Reason: Muscle Spasm Stop: 05/08/20 13:00 Last Admin: 04/10/20 06:37 Dose: 10 mg Documented by: Hydroxyzine HCl (Hydroxyzine Hcl 25 Mg Tab) 50 mg PO HSZ PRN PRN Reason: Insomnia Stop: 05/08/20 10:41 Hydroxyzine HCl (Hydroxyzine Hcl 25 Mg Tab) 25 mg PO Q4H PRN PRN Reason: Anxiety Stop: 05/08/20 10:41 Magnesium Hydroxide (Magnesium Hydroxide Susp 30 Ml Udc) 30 ml PO DAILY PRN PRN Reason: Constipation Stop: 05/08/20 10:41 Nicotine Polacrilex (Nicotine Polacrilex 2 Mg Gum) 1 piece MT PRN PRN PRN Reason: nicotine cravings Stop: 05/08/20 17:53 Oxycodone/Acetaminophen (Oxycodone/Acetaminophen 10-325 Tab) 1 tab PO Q8H PRN PRN Reason: Breakthrough Pain Stop: 04/22/20 20:43 Last Admin: 04/10/20 06:27 Dose: 1 tab Documented by: Sodium Chloride (Sodium Chloride 0.65% Na Soln 45 Ml ([place])) 1 - 2 sprays NA PRN PRN PRN Reason: Nasal Dryness/Congestion Stop: 05/08/20 10:41 Post Discharge Appointments Primary Care Physician Name Of Family Doctor: Shivani Fish Primary Care Provider Appointment Comment: Marshall Hwang Contact Information Discharge Discharge Address: [address] [place] [address] (1) Overdose Encounter type: initial encounter Injury intent: intentional self-harm Qualified Code(s): T50.902A - Poisoning by unspecified drugs, medicaments and biological substances, intentional self-harm, initial encounter
[2020-04-11] MEDS: OXYCODONE/ACETAMINOPHEN 10-325 TAB PO PRN ×2 (05:52→14:11)
--- NOTE | 2020-04-11 12:22 | Electrocardiogram Report ---
Test Reason : Blood Pressure : / mmHG Vent. Rate : 089 BPM Atrial Rate : 089 BPM P-R Int : 160 ms QRS Dur : 088 ms QT Int : 354 ms P-R-T Axes : 060 019 055 degrees QTc Int : 430 ms Normal sinus rhythm Possible Left atrial enlargement Nonspecific T wave abnormality Abnormal ECG When compared with ECG of 15-JUN-2019 18:14, Nonspecific T wave abnormality now evident in Anterior leads Confirmed by Richard Shea ([id number]) on 04/11/2020 12:21:35 PM Referred By: REFERRED SELF Confirmed By:Ricahrd Shea
--- NOTE | 2020-04-11 13:20 | Psychiatric Progress Note ---
Date of Service April 11, 2020 Impression / Recommendations Impression 34-year-old man who was brought into the emergency department by the police after were called by 1 of the patient's friends. The friend received texts from the patient that indicated that the patient had already taken an overdose of Flexeril and Percocet with the intent of dying. The text messages indicated that the patient told the friend that he expected that he would be later in the morning because of the overdose. The patient has been marginally cooperative, is externalizing responsibility for his circumstances, angry and defiant. He signed in voluntarily but submitted a 72 hour notice which will tomorrow morning. He finally agreed to allow staff to speak to a friend today, and she expressed concerns that he is abusing substances and is in need of help, but refuses to accept it, which has long been the case. He just informed us today that his PCP referred him to a therapist at [facility], and we will need to coordinate with his PCP given his long standing opiate pain medication use and reports of OD. Inpatient treatment remains medically necessary due to his risk for suicide if discharged prematurely. (1) Overdose: 04/08 -The patient steadfastly refused to cooperate with a psychiatric evaluation upon arriving on the behavioral health unit and seems to believe that a lack of cooperation will result in a rapid discharge. However, we cannot be certain what is going on in terms of the patient's mental status given his refusal to cooperate. -The patient has been admitted to the locked behavioral health unit and has been placed on suicide precautions. When appropriate, he will be encouraged to participate in individual, group, and activity therapies. We will also discussed with him the option of resuming treatment of a antidepressant medication such as duloxetine, either for his mood disorder or for treatment of his PTSD. We will also attempt, the patient's permission, to involve a friend or family member in the care and treatment. -Although the patient texted a friend and indicated that he had taken an overdose of medicines and expected that he had taken enough to kill himself, and while the patient also confirmed in the emergency department that he had, in fact, taken an overdose, but the patient's toxicology laboratory data measured this morning in the emergency department is not consistent with his assertion that he is taking an overdose of a medication that contains 325 mg of acetaminophen. Specifically, the patient's acetaminophen level, more than 2 hours after the patient had asserted that he had taken the overdose of Percocet, was only 13, which is at the low end of the therapeutic range and certainly not toxic. -Given that the patient is simply refusing to discuss question of suicidality and details of the reported overdose at this point, we will need to defer questions in this regard to a time when the patient is perhaps more rested and more willing to cooperate. 04/09 -Patient's self-report remains irregular and he is not felt to be a trustworthy historian at this time -Patient is here on a voluntary commitment, requesting to sign 72-hour notice at time of psychiatric interview today which she will be permitted to do. In the meantime he will remain on the locked unit for a period of monitoring during which we will continue to try to engage him therapeutically as able -Patient is presently denying suicidal or homicidal ideation and expresses eagerness for discharge to home -Psychoeducation provided addressing impact of chronic pain on mood and coping. He refused to consider an antidepressant trial presently 04/10 -Patient continues to deny thoughts of harm to self or others and has signed a 72-hour notice which will be due on Saturday. Unfortunately he is likely getting very little therapeutic benefit from a hospital part for maintenance of safety at this time despite significant and repeated efforts to engage him therapeutically. 04/11 - Patient signed an NOÉ for his PCP and friend Leigha, who reported to staff that he abuses multiple substances and she supports treatment, but did not want to participate in a meeting as patient is resistant and gets angry. Continue to encourage patient to engage in treatment and rescind his 72 hour notice, but if he does not, will have to be discharged tomorrow, as no 302 criteria currently. -Pt signed NOÉ for PCP, will send records to coordinate care and call to inform Dr. Fish of his reported overdose on Percocet and alcohol, and his friend's concerns and refusal of treatment. -Confirm therapy appt at [facility]. (2) Hypokalemia: 04/08 -The patient's serum potassium level in the emergency department was 2.9 at 430 this morning. He was given potassium supplements and as of 8:05 AM this morning his potassium level had returned to normal (3.7). (3) Mood disorder: 04/08 -The presence of a current mood disorder is only presumed based on the patient's affect and the fact that he reported this morning that he had taken an overdose of medication in order to end his life. He is not cooperating with a psychiatric evaluation and, of course, there may be other explanations for the overdosesuch as chronic pain or distress associated with his known diagnosis of PTSD. -Because the patient is unable or unwilling to cooperate with an assessment of his mood and mood symptoms we will not prescribe an antidepressant medication at this time. It is noted that in the past he had taken Cymbalta, and this might be an option. However, this will have to wait until the patient becomes more cooperative. -When appropriate, the patient will be encouraged to participate in individual, group, and activity therapies. We are presuming that a focus of his treatment will need to be learning improved individual coping strategies, particularly learning how best to communicate his needs to others. 04/11 - Patient slightly more cooperative today in that he engaged in the assessment and answered questions, but is not necessarily a reliable historian. He reports mood has been good except for the night he was drinking, and attributes that to feeling sad about a lost relationship and the of his mother. He is denying SI and is focused on discharge, not wanting to engage in treatment here or accept increased OP treatment. He is not forthcoming regarding his substance abuse, and cannot rule out a substance induced mood disorder. He also demonstrates cluster B personality traits. -Unwilling for outpatient psychiatric care, but says his PCP referred him for therapy - will check w/ [facility]. (4) PTSD (post-traumatic stress disorder): 04/08 -Patient's old medical records indicate that he has in the past been given a diagnosis of PTSD. 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 04/10 -patient declined to consider mirtazapine trial (5) Lumbar back pain: 04/08 -The patient has a documented history of lumbar back pain. We are not clear at this point about the etiology of the back pain, but it is clear that he has been given various treatments, primarily analgesics and a muscle relaxant. Our plan will be to continue his outpatient pain management medications pending further assessment which we assume will be possible when the patient becomes more cooperative with our assessments. 04/09 -We will continue home dose of Percocet 10/325 three times daily as needed to avoid withdrawal and flexeril as rx'd for pain. However, due to recent evidence of inability to maintain safe custodianship/use of this type of medication, outpatient taper should be considered. 04/11 - Called PCP's office and left message w/ staff regarding patient's admission, reports of overdose, and concerns from friends re: ongoing substance abuse. He will follow up with Dr. Fish in 2 days on 04/13. (6) Hypertension: 04/10 -Reviewed risks of poorly managed hypertension with patient. He refuses any intervention presently reporting a history of blood pressure elevation associated with stress in the past. He is asymptomatic. Will change vitals to twice daily 04/11 - Remains hypertensive, but insists it is only because he is stressed about being in the hospital, stating his BP is fine when he is not here. He remains asymptomatic. Has f/u with PCP in 2 days. Inventory Assets Strengths: Supportive friend Needs: Improved individual coping strategies. Further assessment of his mental status and psychiatric history. Risk Factors Assessment Male: Yes : Yes Health Problems: Yes Mental Health Diagnoses: Yes Smoker: Yes Protective Factors Assessment Employed: No (disabled) Interval History Chief Complaint "I mean, I've been fine". Review of Systems Notes Denies chest pain, tightness, AMBROSE, dizziness Sleep Information Total Hours of Sleep: 6.25 Sleep Comments: two snoring episodes of deep sleep-the first at the beginning of the shift and the other mid shift. he did not acknowledge wakefulness on any rounds. he did change his laying in bed positions a few times. Meal Information Percent Meal Consumed - Breakfast: 50 Percent Meal Consumed - Lunch: 0 Percent Meal Consumed - Dinner: 0 Nutrition Comment: pt. had 2 bowls of cereal Subjective Subjective Patient was seen & assessed and interval progress reviewed with treatment team. Staff report the patient isolated in his room all weekend, refusing groups and was poorly engaged in treatment. He refused a family meeting and recommendations for outpatient care, but last night told staff he would agree to a family meeting and referral for therapy. On my assessment today, he states he wants to be discharged as being here is making him worse, and he didn't really need to be here in the first place, "I just had too much to drink, said some stuff to the wrong friend of mine." He admits to making suicidal statements but says he was just intoxicated and upset as it would have been his 15 year anniversary, but his relationship ended. He denies that he has been depressed and says mood was "fine" other than the night he presented. He says he is willing for a family meeting with his friend Leigha, but then asks if he can "just be discharged AMA right now?" He says he was referred for therapy by his PCP and has an appt next month, but doesn't know with whom. He minimizes his drinking and says he usually "just drinks socially." He says his BP is only elevated because he is in the hospital which causes him to feel "stressed," and repeatedly asks to leave. He met with the social service agency director and signed a release for his friend Leigha, who the social service agency director then called: Leigha has known him for 10 years and said he needs to be in the hospital, as he is addicted to opiates, goes to the ER to get pain meds, and drinks heavily. He sent a text to all of his friends that he had overdosed. He refuses to follow recommendations for treatment, for example has DELMAR but refuses to wear CPAP. She did not want to have a meeting with him as she has tried to encourage him to get help and he won't, and gets mad at her when she expresses her concerns. Medication Trials Lyrica Possible history of Cymbalta Physical Exam Psychiatric Orientation: alert and cooperative Apperance: appropriately dressed and appropriately groomed WNWD WM with long blond hair, shaved on the sides of his head. Dressed in black plants and a black t-shirt. Seated in NAD, mild fidgeting. Eye Contact: + fair eye contact Motor Behavior: steady gait and station and + psychomotor agitation Speech: normal rate/rhythm/volume of speech Affect: + irritable affect; + mood not congruent with affect "Fine." Thought Process: goal directed thought process Thought Content: + preoccupation (with immediate discharge) Suicidal Thoughts: denies suicidal thoughts Homicidal Thoughts: denies homicidal thoughts Hallucinations: no auditory hallucinations Cognition: recent memory grossly intact, attention grossly intact and language grossly intact Insight: + poor insight Judgement: + poor judgement Vital Signs (Past 24 Hours) Last Vital Signs Temp 36.9 C 04/11/20 05:48 Pulse 121 H 04/11/20 07:55 Resp 19 04/11/20 05:48 BP 152/118 H 04/11/20 07:55 Pulse Ox 100 04/08/20 11:52 Results & Data ([facility]) Current Inpatient Medications Current Inpatient Medications: Current Inpatient Medications Acetaminophen (Acetaminophen 325 Mg Tab) 650 mg PO Q4H PRN PRN Reason: Headache or Minor Fever Stop: 05/08/20 10:41 Al Hydrox/Mg Hydrox/Simethicone (Aluminum/Magnesium Susp 30 Ml Udc) 30 ml PO Q4H PRN PRN Reason: GI Upset Stop: 05/08/20 10:41 Bismuth Subsalicylate (Bismuth Subsalicylate Per Ml Omnicell Charge) 15 ml PO PRN PRN PRN Reason: Loose Stool Stop: 05/08/20 10:41 Cyclobenzaprine HCl (Cyclobenzaprine Hcl 10 Mg Tab) 10 mg PO TID PRN PRN Reason: Muscle Spasm Stop: 05/08/20 13:00 Last Admin: 04/10/20 21:26 Dose: 10 mg Documented by: Hydroxyzine HCl (Hydroxyzine Hcl 25 Mg Tab) 50 mg PO HSZ PRN PRN Reason: Insomnia Stop: 05/08/20 10:41 Hydroxyzine HCl (Hydroxyzine Hcl 25 Mg Tab) 25 mg PO Q4H PRN PRN Reason: Anxiety Stop: 05/08/20 10:41 Last Admin: 04/11/20 05:52 Dose: 25 mg Documented by: Magnesium Hydroxide (Magnesium Hydroxide Susp 30 Ml Udc) 30 ml PO DAILY PRN PRN Reason: Constipation Stop: 05/08/20 10:41 Nicotine Polacrilex (Nicotine Polacrilex 2 Mg Gum) 1 piece MT PRN PRN PRN Reason: nicotine cravings Stop: 05/08/20 17:53 Oxycodone/Acetaminophen (Oxycodone/Acetaminophen 10-325 Tab) 1 tab PO Q8H PRN PRN Reason: Breakthrough Pain Stop: 04/22/20 20:43 Last Admin: 04/11/20 05:52 Dose: 1 tab Documented by: Sodium Chloride (Sodium Chloride 0.65% Na Soln 45 Ml ([place])) 1 - 2 sprays NA PRN PRN PRN Reason: Nasal Dryness/Congestion Stop: 05/08/20 10:41 Mental Health & Subst Abuse Tx Therapist Name of Therapist: Dr. Pamela Woods Therapist's Date of Therapist Appointment: 05/19/20 Time of Therapist Appointment: 2:15pm Therapy Appointment Comment: [place] [id number] Post Discharge Appointments Primary Care Physician Name Of Family Doctor: Shivani - Dr. Cori Fish Primary Care Date of Appointment with PCP: 04/13/20 Time of Appointment with PCP: 1:25pm Provider Appointment Comment: [place] [phone] Contact Information Discharge Discharge Address: [address] [place] [address] (1) Overdose Encounter type: initial encounter Injury intent: intentional self-harm Qualified Code(s): T50.902A - Poisoning by unspecified drugs, medicaments and biological substances, intentional self-harm, initial encounter
[2020-04-11] MEDS: CYCLOBENZAPRINE HCL 10 MG TAB PO PRN (13:22)
[2020-04-12 05:44] VITALS: BP 146/106; TEMP 98.4
--- NOTE | 2020-04-12 07:47 | Discharge Summary ---
Date of Service April 12, 2020 History of Present Illness The patient is a 34-year-old male with a known history of PTSD and a presumed history of depression. Although he was admitted on a voluntary basis from the emergency room, he is deliberately uncooperative with the assessment and, in fact, the only words that he altered consisted of his responding "Well, it is not good to meet you" after I introduced myself and said that it was good to meet him. The patient also altered that he would intend not to eat in the hospital and signaled that he would refuse to cooperate with anything that we might suggest. Within this context, given the patient's lack of cooperation, we are basing the following findings on the patient's past medical record, the emergency room notes, and text messages that were found on the patient's telephone by the police and shared with the hospital. The patient's [facility] records indicate that the patient does have a diagnosis of PTSD, and, as of 06/18/19, had been taking duloxetine (Cymbalta) 40 mg a day specifically for PTSD. Was also noted that the patient is a . It is not known if his diagnosis of PTSD is service-connected, and it is also not known if he is eligible to receive [facility]. The current admission to the [facility] behavioral health unit was precipitated in the early hours of the day of admission when the patient texted a friend and wrote, "... I can't go on anymore, and hopefully tomorrow never comes." [I am] pretty sure I took enough." The recipient of the text responded by telling the patient that he was going call the police and have them do a "wellness check." The patient responded by saying that he was not home, and just that he was "wandering around [facility] The friends response suggests that he was supposing that the patient had taken his "pain medicine," and the patient answered "no reason to go home." The patient then offered to stop by the friend's home. The friend advised the patient that he had already called the police, and the patient's texted response was "they will never take me alive. Treadwell Treadwell Treadwell." Apparently, the patient did arrive at the friend's residence, and eventually he was escorted to the emergency room for evaluation by the local police. The pat philipp then acknowledged that he had taken an intentional overdose of Percocet (codeine 10 mg/acetaminophen 325 mg) and but was either unwilling or unable to say how many pills he took. The patient also acknowledged that he had been drinking (alcohol) and appeared to be somewhat intoxicated. His blood alcohol level was measured in the emergency department was 67 mg/dL. Tox screen was positive for opioids, consistent with his report that he had taken Percocets, but his acetaminophen level was 13, which is at the low end of the therapeutic range for acetaminophen. Currently, there is some question regarding the validity of the patient's assertion that he had, in fact, taken an overdose of his pain medications. When he arrived on the behavioral health unit, approximately 6 hours after being evaluated in the emergency room, he was fully alert and stood in the day room while glaring at staff in the nursing station. He did not appear in any way sedated. Instead, the patient's affect was simply bumptious and angry. As noted above, although the patient come in as a voluntary patient, he quickly advised us that he was not going eat as long as we kept him on the unit. He was not amenable to reason, and seemed to be focused on the notion that somehow he was the victim of a misunderstanding that he was unwilling to attempt to resolve. Multiple attempts to speak with him were met with silence. Physical Exam Psychiatric Orientation: alert and cooperative Apperance: appropriately dressed and appeared stated age Long greasy blond hair, signs of head shaved. Seated in no acute distress, drinking a soda. Eye Contact: + fair eye contact Motor Behavior: steady gait and station Mild fidgeting. Speech: normal rate/rhythm/volume of speech Affect: euthymic affect "Pretty good." Thought Process: goal directed thought process Thought Content: + cognitive distortions Suicidal Thoughts: denies suicidal thoughts Homicidal Thoughts: denies homicidal thoughts Hallucinations: no auditory hallucinations Cognition: recent memory grossly intact (With the exception of events while intoxicated.), attention grossly intact and language grossly intact Insight: + limited insight Judgement: + limited judgement Vital Signs (Past 24 Hours) Last Vital Signs Temp 36.9 C 04/12/20 05:42 Pulse 114 H 04/12/20 05:42 Resp 16 04/12/20 05:42 BP 146/106 H 04/12/20 05:42 Pulse Ox 100 04/08/20 11:52 Principal Diagnosis Overdose (alcohol, Percocet, Flexeril) Mood disorder NOS (rule out MDD versus substance-induced depression versus personality disorder) Opiate dependence Alcohol use disorder Cannabis use disorder Psychiatric Data Patient was hospitalized for 4 days. Although he signed in voluntarily, he was uncooperative with treatment and for the first few days refused to talk to staff and refused all meals. He was continued on his home medications, Percocet and Flexeril as needed. He submitted a 72-hour notice requesting to withdrawal from treatment. His PCPs office was contacted to coordinate care and a message left regarding circumstances surrounding his admission. He refused all groups, and spent the first couple of days isolating in his room. He initially reported taking an intentional overdose in a suicide attempt, but later stated he could not remember if he took the overdose, but probably had. He refused to consider antidepressant medication, and focused on his unhappiness with being in the hospital and that it was making him feel worse. He refused to sign releases for anyone initially, but eventually agreed to a family meeting with his friend, Leigha, and social science professor contacted her on 04/11/2020. She reported concerns about the patient's substance abuse and mood, stating that he had sent a text message to all of his friends that he had overdosed and was ending his life. He stated that he has abused substances for years, is addicted to opiates, and drinks heavily. She has tried to intervene in the past, but he becomes angry. She also reported that in the past he has talked about suicide, and at one point gave her the firing pin for his gun so that he would not use it to harm himself. She stated that he has difficulty being alone so seeks out relationships even if they are unhealthy, including a relationship with a woman. His other friends are also concerned about him. She did not want to be involved in the meeting that she did not think the patient would be open to making changes. Staff then met with the patient to relay friend's concerns as well as staff's concerns about his unwillingness to engage in treatment and request for AMA discharge. He admitted that he had given the firing pin to his friend in 10/2019 when his girlfriend broke up with him, but said he did it to make his friend feel better, not because he was concerned he was going to harm himself. He maintained throughout his hospitalization that he was not suicidal, that he had made statements about ending his life while under the influence, and that he did not have mental health or substance abuse problems that needed to be addressed. He focused on his dislike of being hospitalized because he was "trapped" and could not go outside, stating that he felt more stressed being in the hospital, and attributed his elevated blood pressure to being here. He refused treatment for hypertension, despite the fact that his blood pressure was consistently elevated in the 140-150/90-120 range, insisted that his blood pressure was only elevated because he was in the hospital which was causing "stress." He initially refused all recommendations for substance abuse and mental health treatment, but later stated that his PCP had referred him to a psychologist at [facility], and an appointment was confirmed on 05/19/2020. He refused all groups, but did become more cooperative with physician assessments over the last 2 days in the hospital. Day of Discharge Assessment Staff report the patient continues to refuse all groups, and is unwilling to rescind his 72-hour notice which expires this morning. His blood pressure remains elevated, 148/108, and he continues to refuse medications. On my assessment, he states that his mood is "pretty good," but his only concern is that he wants to get out of the hospital as he does not like it here. He initially asked his if he does not know anything about the concerns his friend expressed to staff yesterday, but when briefly reviewed them, he states "I can kind of understand, but some part's unfounded. I've been through a lot in the past few years, I just said some dumb stuff when I was drunk." He continues to deny suicidal thoughts, and denies any concerns about his substance use, stating "I just drink socially." When pointing out the discrepancy that he just stated he threatened to end his life and possibly took an overdose while intoxicated, which she attributes solely to being under the influence, but then says he does not have a substance abuse problem, he states "well, I also hadn't slept very well." He says that his PCP referred him to a psychologist in order to address his sleep issues. He continues to refuse treatment for his hypertension, and was advised of the risks of untreated hypertension and our recommendations to follow-up with his PCP tomorrow, which he is agreeing to do. He denies any concerns about his mood, symptoms of depression, and thoughts of harming himself or others. He denies any safety concerns with discharge. He is requesting discharge AGAINST MEDICAL ADVICE. Transition of Care Transition Of Care Record: was reviewed with the patient Advance Directives Advance Directives Information Provided: Yes Advance Directives: No Mental Health Advance Directive: No Advance Directives on File: No Living Will: No Power of Boat Diesel Motor Mechanic: No Advance Directives Reason:: Declines as Mental Health Visit. Risk Factors Assessment Risk factors were mitigated by admission to the inpatient unit, education about his diagnoses and the recommended treatment, review of antidepressant medication which he refused, education about the risks of ongoing substance abuse and recommendations for treatment which he refused, collateral information from a friend, coordination with his PCP, offering groups and therapy which he refused. He has consistently denied suicidal thoughts and symptoms of depression here, has not engaged in self-injurious behavior, and is completing ADLs independently. He does have a gun but declined recommendations to remove it or let a friend take it until he is stabilized. He submitted a 72-hour notice requesting discharge, and as he is no longer at acute risk of harm to himself and does not meet involuntary commitment criteria, he will be discharged and managed as an outpatient. He does not endorse risk factors indicating an acute increase risk of harm to others. He remains at increased risk for harm to both himself and others compared to the general population given his multiple risk factors including sex, race, untreated mental health issues, chronic pain, substance abuse, access to a gun, single/lives alone, unemployed, but these risk factors are not likely to be mitigated by further inpatient treatment. Male: Yes : Yes Do You Have Access To A Gun?: Yes Health Problems: Yes Mental Health Diagnoses: Yes Substance Use Disorders: Yes Hopelessness: No Smoker: Yes Protective Factors Assessment : No Responsible for Young Children: No Employed: No (disabled) Stable Relationships: Yes (Supportive friends) Good Rapport with Provider: Yes Tobacco Cessation at Discharge Tobacco Cessation Medication Prescribed at Discharge: Offered & Pt Refused Total Time Total Time Spent: Greater Than 30 Minutes Total Time Includes: Examination of the patient, Discharge Planning and Medication Reconciliation Discharge Data Lab Results 04/08/20 04/08/20 04/08/20 04:20 04:20 04:20 WBC 12.84 H RBC 4.55 L Hgb 14.9 Hct 44.0 MCV 96.7 MCH 32.7 MCHC 33.9 RDW Std Deviation 49.5 H RDW Coeff of Christian 14.1 Plt Count 222 MPV 10.0 Immature Gran % (Auto) 0.2 Neut % (Auto) 66.1 Lymph % (Auto) 24.9 Hoke % (Auto) 7.5 Eos % (Auto) 1.1 Baso % (Auto) 0.2 Neut # (Auto) 8.48 H Lymph # (Auto) 3.20 Hoke # (Auto) 0.96 H Eos # (Auto) 0.14 Baso # (Auto) 0.03 Immature Gran # (Auto) 0.03 H Sodium 141 Potassium 2.9 L Chloride 108 H Carbon Dioxide 26 Anion Gap 7.0 BUN 4 L Creatinine 0.73 Est Cr Clr Drug Dosing 136.6 Est GFR ( Amer) 139.3 Est GFR (Non-Af Amer) 120.2 BUN/Creatinine Ratio 6.2 L Glucose 96 Calcium 8.0 L Total Bilirubin 0.3 AST 21 ALT 33 Alkaline Phosphatase 50 Total Protein 6.7 Albumin 3.6 Globulin 3.1 Albumin/Globulin Ratio 1.2 TSH 1.800 Urine Color Urine Appearance Urine pH Ur Specific [place] Urine Protein Urine Glucose (UA) Urine Ketones Urine Blood Urine Nitrite Urine Bilirubin Urine Urobilinogen Ur Leukocyte Esterase Salicylates 2.5 L Urine Opiates Screen U Codeine Confrm GC/MS Ur Morphine (GC/MS) Ur Hydrocodone (GC/MS) Ur Norhydrocodone Ur Noroxycodone Urine Oxycodone (GC/MS) U Oxymorphone GC/MS Ur Methadone, Qual Ur Hydromorphone (GC/MS) Acetaminophen 16 Urine Barbiturates Ur Phencyclidine (PCP) U Amphetamin/Meth Scrn MDMA (Ecstasy) Screen U Benzodiazepines Scrn Ur Cocaine Metabolite U Marijuana (THC) Screen U Marijuana THC Carboxy Drug Screen Comment Ethyl Alcohol mg/dL 04/08/20 04/08/20 04/08/20 04:20 07:45 07:45 WBC RBC Hgb Hct MCV MCH MCHC RDW Std Deviation RDW Coeff of Christian Plt Count MPV Immature Gran % (Auto) Neut % (Auto) Lymph % (Auto) Hoke % (Auto) Eos % (Auto) Baso % (Auto) Neut # (Auto) Lymph # (Auto) Hoke # (Auto) Eos # (Auto) Baso # (Auto) Immature Gran # (Auto) Sodium Potassium Chloride Carbon Dioxide Anion Gap BUN Creatinine Est Cr Clr Drug Dosing Est GFR ( Amer) Est GFR (Non-Af Amer) BUN/Creatinine Ratio Glucose Calcium Total Bilirubin AST ALT Alkaline Phosphatase Total Protein Albumin Globulin Albumin/Globulin Ratio TSH Urine Color Yellow Urine Appearance Clear Urine pH 6.0 Ur Specific [place] 1.010 Urine Protein Negative Urine Glucose (UA) Negative Urine Ketones Negative Urine Blood Negative Urine Nitrite Negative Urine Bilirubin Negative Urine Urobilinogen Negative Ur Leukocyte Esterase Negative Salicylates Urine Opiates Screen Pos H U Codeine Confrm GC/MS Ur Morphine (GC/MS) Ur Hydrocodone (GC/MS) Ur Norhydrocodone Ur Noroxycodone Urine Oxycodone (GC/MS) U Oxymorphone GC/MS Ur Methadone, Qual Neg Ur Hydromorphone (GC/MS) Acetaminophen Urine Barbiturates Neg Ur Phencyclidine (PCP) Neg U Amphetamin/Meth Scrn Neg MDMA (Ecstasy) Screen Neg U Benzodiazepines Scrn Neg Ur Cocaine Metabolite Neg U Marijuana (THC) Screen Pos H U Marijuana THC Carboxy Drug Screen Comment Ethyl Alcohol mg/dL 67.0 H 04/08/20 04/08/20 04/08/20 07:45 08:05 08:05 WBC RBC Hgb Hct MCV MCH MCHC RDW Std Deviation RDW Coeff of Christian Plt Count MPV Immature Gran % (Auto) Neut % (Auto) Lymph % (Auto) Hoke % (Auto) Eos % (Auto) Baso % (Auto) Neut # (Auto) Lymph # (Auto) Hoke # (Auto) Eos # (Auto) Baso # (Auto) Immature Gran # (Auto) Sodium Potassium 3.7 D Chloride Carbon Dioxide Anion Gap BUN Creatinine Est Cr Clr Drug Dosing Est GFR ( Amer) Est GFR (Non-Af Amer) BUN/Creatinine Ratio Glucose Calcium Total Bilirubin AST ALT Alkaline Phosphatase Total Protein Albumin Globulin Albumin/Globulin Ratio TSH Urine Color Urine Appearance Urine pH Ur Specific [place] Urine Protein Urine Glucose (UA) Urine Ketones Urine Blood Urine Nitrite Urine Bilirubin Urine Urobilinogen Ur Leukocyte Esterase Salicylates Urine Opiates Screen U Codeine Confrm GC/MS NEGATIVE Ur Morphine (GC/MS) NEGATIVE Ur Hydrocodone (GC/MS) 5090 H Ur Norhydrocodone 5570 H Ur Noroxycodone NEGATIVE Urine Oxycodone (GC/MS) NEGATIVE U Oxymorphone GC/MS NEGATIVE Ur Methadone, Qual Ur Hydromorphone (GC/MS) 123 H Acetaminophen 13 Urine Barbiturates Ur Phencyclidine (PCP) U Amphetamin/Meth Scrn MDMA (Ecstasy) Screen U Benzodiazepines Scrn Ur Cocaine Metabolite U Marijuana (THC) Screen U Marijuana THC Carboxy 213 H Drug Screen Comment SEE NOTE Ethyl Alcohol mg/dL Hospital Course (1) Overdose: 04/08 -The patient steadfastly refused to cooperate with a psychiatric evaluation upon arriving on the behavioral health unit and seems to believe that a lack of cooperation will result in a rapid discharge. However, we cannot be certain what is going on in terms of the patient's mental status given his refusal to cooperate. -The patient has been admitted to the [facility] behavioral [facility] unit and has been placed on suicide precautions. When appropriate, he will be encouraged to participate in individual, group, and activity therapies. We will also discussed with him the option of resuming treatment of a antidepressant medication such as duloxetine, either for his mood disorder or for treatment of his PTSD. We will also attempt, the patient's permission, to involve a friend or family member in the care and treatment. -Although the patient texted a friend and indicated that he had taken an overdose of medicines and expected that he had taken enough to kill himself, and while the patient also confirmed in the emergency department that he had, in fact, taken an overdose, but the patient's toxicology laboratory data measured this morning in the emergency department is not consistent with his assertion that he is taking an overdose of a medication that contains 325 mg of acetaminophen. Specifically, the patient's acetaminophen level, more than 2 hours after the patient had asserted that he had taken the overdose of Percocet, was only 13, which is at the low end of the therapeutic range and certainly not toxic. -Given that the patient is simply refusing to discuss question of suicidality and details of the reported overdose at this point, we will need to defer questions in this regard to a time when the patient is perhaps more rested and more willing to cooperate. 04/09 -Patient's self-report remains irregular and he is not felt to be a trustworthy historian at this time -Patient is here on a voluntary commitment, requesting to sign 72-hour notice at time of psychiatric interview today which she will be permitted to do. In the meantime he will remain on the locked unit for a period of monitoring during which we will continue to try to engage him therapeutically as able -Patient is presently denying suicidal or homicidal ideation and expresses eagerness for discharge to home -Psychoeducation provided addressing impact of chronic pain on mood and coping. He refused to consider an antidepressant trial presently 04/10 -Patient continues to deny thoughts of harm to self or others and has signed a 72-hour notice which will be due on Saturday. Unfortunately he is likely getting very little therapeutic benefit from a hospital part for maintenance of safety at this time despite significant and repeated efforts to engage him therapeutically. 04/11 - Patient signed an NOÉ for his PCP and friend Leigha, who reported to staff that he abuses multiple substances and she supports treatment, but did not want to participate in a meeting as patient is resistant and gets angry. Continue to encourage patient to engage in treatment and rescind his 72 hour notice, but if he does not, will have to be discharged tomorrow, as no 302 criteria currently. -Pt signed NOÉ for PCP, will send records to coordinate care and call to inform Dr. Fish of his reported overdose on Percocet and alcohol, and his friend's concerns and refusal of treatment. -Confirm therapy appt at [facility]. (2) Mood disorder: 04/08 -The presence of a current mood disorder is only presumed based on the patient's affect and the fact that he reported this morning that he had taken an overdose of medication in order to end his life. He is not cooperating with a psychiatric evaluation and, of course, there may be other explanations for the overdosesuch as chronic pain or distress associated with his known diagnosis of PTSD. -Because the patient is unable or unwilling to cooperate with an assessment of his mood and mood symptoms we will not prescribe an antidepressant medication at this time. It is noted that in the past he had taken Cymbalta, and this might be an option. However, this will have to wait until the patient becomes more cooperative. -When appropriate, the patient will be encouraged to participate in individual, group, and activity therapies. We are presuming that a focus of his treatment will need to be learning improved individual coping strategies, particularly learning how best to communicate his needs to others. 04/11 - Patient slightly more cooperative today in that he engaged in the assessment and answered questions, but is not necessarily a reliable historian. He reports mood has been good except for the night he was drinking, and attributes that to feeling sad about a lost relationship and the of his mother. He is denying SI and is focused on discharge, not wanting to engage in treatment here or accept increased OP treatment. He is not forthcoming regarding his substance abuse, and cannot rule out a substance induced mood disorder. He also demonstrates cluster B personality traits. -Unwilling for outpatient psychiatric care, but says his PCP referred him for therapy - will check w/ [facility]. 04/12 -patient consistently denying depressive symptoms here, maintaining that he made suicidal statements in the context of intoxication and did not mean it. Although his friend provided information that he has been consistently abusing substances and threatening suicide, he does this and was unwilling to consider treatment for mood symptoms. He is scheduled to see a psychologist as below. Differential includes MDD (although patient does not appear depressed here), substance-induced mood disorder, and personality disorder. (3) PTSD (post-traumatic stress disorder): 04/08 -Patient's old medical records indicate that he has in the past been given a diagnosis of PTSD. 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 04/10 -patient declined to consider mirtazapine trial 04/12 -Denying symptoms of PTSD here. This diagnosis has not been confirmed with outpatient records. (4) Alcohol abuse: 04/12 -patient overdosed in the context of alcohol intoxication, and reports from his friends indicate longstanding alcohol abuse. He minimizes his drinking and other substance use, and was unwilling to address it. -Recommended substance abuse treatment, which he declined. Risks of ongoing substance use were reviewed including but not limited to alterations in mood, anxiety, sleep, dependence and withdrawal, medical sequelae, increased risk of suicide/self-harm, and . -Recommend avoiding prescription of controlled substances given the high risk of abuse/misuse/negative outcomes as well as drug drug interactions with the various substances he is using. Brief intervention was offered and accepted Intervention was greater than 5 min in length. Brief interventions include: 1. Assess Readiness to Quit, 2. Advise: Help Patient to Reduce or Abstain from Alcohol, 3. Agree: Set Specific, Feasible Goals, 4. Assist: Anticipate barriers, Problem-Solving Solutions. Social work to 5. Arrange: Referrals to appropriate treatment. Summary of intervention: The patient is in precontemplation stage with regards to transtheoretical model of change. The patient is advised to decrease alcohol consumption due to depressant effects and risk of interactions with prescription medications. The patient agreed to try to reduce his drinking, and will be provided with recovery materials to continue to education self on how to cope with their condition without drinking. -Scheduled to see psychologist, Dr. Woods, 05/19/2020 at [facility]. (5) Opiate addiction: 04/12 -reports from patient's friend indicate he is addicted to opiates and engages in drug-seeking behavior. He also drinks heavily while on opiates, and reported that he overdosed on Percocet and Flexeril in a suicide attempt the day of admission. -Coordinate care with PCP who prescribes his pain medications, see above regarding recommendations for substance abuse treatment, which the patient refused. (6) Cannabis abuse: 04/12 -see above regarding recommendations for substance abuse treatment. Risks of ongoing cannabis use were reviewed, patient unwilling to engage in substance abuse treatment and does not wish to change his behavior. (7) Lumbar back pain: 04/08 -The patient has a documented history of lumbar back pain. We are not clear at this point about the etiology of the back pain, but it is clear that he has been given various treatments, primarily analgesics and a muscle relaxant. Our plan will be to continue his outpatient pain management medications pending further assessment which we assume will be possible when the patient becomes more cooperative with our assessments. 04/09 -We will continue home dose of Percocet 10/325 three times daily as needed to avoid withdrawal and flexeril as rx'd for pain. However, due to recent evidence of inability to maintain safe custodianship/use of this type of medication, outpatient taper should be considered. 04/11 - Called PCP's office and left message w/ staff regarding patient's admission, reports of overdose, and concerns from friends re: ongoing substance abuse. He will follow up with Dr. Fish in 2 days on 04/13. (8) Hypertension: 04/10 -Reviewed risks of poorly managed hypertension with patient. He refuses any intervention presently reporting a history of blood pressure elevation associated with stress in the past. He is asymptomatic. Will change vitals to twice daily 04/11 - Remains hypertensive, but insists it is only because he is stressed about being in the hospital, stating his BP is fine when he is not here. He remains asymptomatic. Has f/u with PCP in 2 days. 04/12 -Patient refused treatment of his hypertension while here, and blood pressure was consistently in the. He has follow-up with his PCP tomorrow. (9) Hypokalemia: 04/08 -The patient's serum potassium level in the emergency department was 2.9 at 430 this morning. He was given potassium supplements and as of 8:05 AM this morning his potassium level had returned to normal (3.7). Mental Health & Subst Abuse Tx Therapist Name of Therapist: Shivani Woods Therapist's Date of Therapist Appointment: 05/19/20 Time of Therapist Appointment: 2:15pm Therapy Appointment Comment: [address] [place] [address] Metal Coater Operator Name of Metal Coater Operator: MILENA Metal Coater Operator Katiana Mancini Phone Number for Metal Coater Operator: [phone] Case Management Appointment Comment: Call for additional support, any additional services needed Post Discharge Appointments Primary Care Physician Name Of Family Doctor: Shivani Fish Primary Care Date of Appointment with PCP: 04/13/20 Time of Appointment with PCP: 1:25pm Provider Appointment Comment: [address] [place] [address] Smoking Cessation Counseling Tobacco Cessation Medication Prescribed at Discharge: Offered & Pt Refused Contact Information Discharge Discharge Address: [address] [place] [address] Discharge Plan Discharge Items Patient Disposition: Against Medical Advice Reason For Visit: MDD Discharge Diagnosis: Overdose on alcohol, cyclobenzaprine, and oxycodone/acetaminophen Opiate use disorder Alcohol use disorder Activity: Per Instructions section Non-emergency contact: Primary Care Provider, Therapist and [place] Commissioner Call non-emergency contact if: you have any medication questions and your symptoms worsen Follow-up/Referrals: Cori Fish, [Primary Care Provider] - Diet: Regular Addtl Attending Provider Instructions: SPECIAL CARE INSTRUCTIONS: 1. Follow through with your scheduled aftercare appointments. If unable to keep an appointment, please call to reschedule. We recommended substance abuse treatment and psychiatric care, which he declined. 2. Take your medication only as prescribed. Medication should not be changed or stopped without the approval of your doctor. In the event of worsening symptoms or concerns about side effects, contact your doctor immediately. 3. Utilize new healthy coping skills, anger management skills, and stress management skills learned during your hospitalization. Journal feelings and process them with a support person. Identify stressors or situations that may result in relapse, deterioration or inappropriate behaviors and develop a plan to deal with those issues. 4. If your coping skills are ineffective and you are in crisis, contact your outpatient providers for direction. If unable to reach your providers, please call the CAN HELP LINE AT or go to the closest Emergency Room. 5. You should not drink alcohol or take un-prescribed drugs. Recommend taper off of opioid pain medications given addiction issues/overdose. 6. You have been provided with the Mental Health Advance Directives Pamphlet for your review. AFTERCARE APPOINTMENTS: * Please call your insurance company prior to your scheduled appointment to confirm your aftercare providers are covered. Take your insurance information to your appointments. WHO TO CALL AND WHEN: Medical Emergencies: For questions or emergencies related to your hospital stay, please contact the Inpatient Behavioral Health Unit at [phone]. A player services representative is on-call 18/03 for the Behavioral Health Unit for emergencies At any time you feel your situation is an emergency, you may also call 911 immediately. Your Doctors Instructions noted above were prepared by provider Lilian Mancera MD. Pending Studies at Discharge: No Stand-Alone Forms: My [facility] [place], Smoking Cessation, Suicide Prevention Resources Medications and DC Order Prescriptions: Continued cyclobenzaprine 10 mg tablet 10 mg PO TID PRN (Reason: Muscle Spasm) RF: 0 hydrocodone-acetaminophen 10-325 mg tablet RF: 0 Discharge Orders: Left Against Medical Advice (Routine); Ordered 04/12/20 Ordered By: Lilian Mancera Admission Data Admit Date/Time: 04/08/20 10:42 Attending Provider: Lilian Mancera Admit Provider: Joe Macias Primary Care Provider: Cori Fish Other Interventions: PSY Interdisciplinary Discharge Planning Last Done: 04/12/20 08:55 Coding Level of Care Code 01328 D/C day mgmt > 30 min Diagnoses Overdose T50.902A Encounter type: initial encounter Injury intent: intentional self-harm Mood disorder F39 PTSD (post-traumatic stress disorder) F43.10 Alcohol abuse F10.10 Opiate addiction F11.20 Cannabis abuse F12.10 Lumbar back pain M54.5 Hypertension I10 Hypokalemia E87.6
[2020-04-12 09:12] VITALS: PULSE 94
[2020-04-12] MEDS: OXYCODONE/ACETAMINOPHEN 10-325 TAB PO PRN (09:16)
[2020-04-12] MEDS: CYCLOBENZAPRINE HCL 10 MG TAB PO PRN (09:18)
== END 2020-04-12 09:35 | disposition left against medical advice (07) | DRG 918 ==
LOC: ED 03:47 → 3S 10:42 → SUATTDRO 10:42 → 3S 11:52